=== PATIENT | female | born 1985 | race Caucasian/White ===

== ENCOUNTER 2017-07-17 14:50 | Emergency (ER) | payer BC ==
[~2017-07-17] VITALS: Ht 160 cm; Wt 117.3 kg
[~2017-07-17 14:50] MED LIST: AMIT50TA3 PO; LPR25 PO; MECL1TAB42 PO; TOPI50TA24 PO
[2017-07-17 14:55] VITALS: TEMP 37; Ht 160 cm; Wt 117.3 kg
[2017-07-17] MEDS ORDERED: DiphenhydrAMINE HCL 50 MG/ML VIAL IV STA (15:09)
[2017-07-17] MEDS ORDERED: MAGNESIUM SULFATE 1GM / D5W 1 GM BAG IV STA (15:09)
[2017-07-17] MEDS ORDERED: PROCHLORPERAZINE 5 MG/ML 2 ML VIAL IV STA (15:09)
[2017-07-17] MEDS ORDERED: SODIUM CHLORIDE 0.9% 1000ML 1,000 ML IV SCH (15:09)
[2017-07-17] MEDS ORDERED: ACETAMINOPHEN 500 MG TAB PO STA (15:09)
--- NOTE | 2017-07-17 15:16 | EMERGENCY ROOM VISIT NOTE ---
History Report prepared by Neela: Jean-Claude Fuentes Under the Supervision of: Dr. Robinson Lozano M.D. First contact with patient: 15:02 Chief Complaint: NEURO SYMPTOMS Stated Complaint: DIFFICULTY FORMING SENTENCES - VISUAL DISTURBANCES Nursing Triage Summary: Pt states, "I had some kind of visual disturbance in my right eye. It was like a squiggle. I can't find words sometimes. I can't remember how to spell sometimes. It's been going for about 45 mins at this point. I have a h/a behind my eyes, more so on the left." Hx of migraines. 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 She notes her vision in her right eye suddenly became "pixelated and squiggly" for ten minutes. She notes that she has never had blurry vision symptoms before today. She also notes a headache. She currently rates her pain a 2/10 in severity. She notes that she thought she needed to eat and relax, so she ate lunch. After lunch, she went to send a text message and noticed that she could not "read or comprehend anything," also noting that her speech was abnormal. She informed her PCP who advised her to come in to the ED. She has a history of neuro symptoms: slurred speech, inability to read or comprehend information (2013). She has a history of migraines and tachycardia. She takes Topamax, Flexeril, and control. 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 She notes speech issues. She notes comprehension issues, " could not "read or comprehend anything." Review of Systems See HPI for pertinent positives & negatives. A total of 10 systems reviewed and were otherwise negative. Past Medical & Surgical Medical Problems: (1) Cerebellar disease (2) Hx of migraines Family History Diabetes mellitus FHx: cancer FHx: heart disease Hypertension Kidney disease Kidney stones Social History Smoking Status: Never Smoker Alcohol Use: none Drug Use: none Marital Status: single Housing Status: lives with family Occupation Status: employed Current/Historical Medications Scheduled Control Pills ( Control Pills), 1 TAB PO DAILY Metoprolol Tartrate (Lopressor) (Lopressor), 50 MG PO QAM Metoprolol Tartrate (Lopressor) (Lopressor), 25 MG PO QPM Topiramate (Topamax), 50 MG PO BID Scheduled PRN Cyclobenzaprine Hcl (Flexeril), 10 MG PO TID PRN for Muscle Spasm Allergies Coded Allergies: Sumatriptan (Verified Allergy, Severe, SHORTNESS OF BREATH, 08/29/13) Amoxicillin (Verified Allergy, Intermediate, Hives, 08/29/13) Clavulanic Acid (Verified Allergy, Intermediate, Hives, 08/29/13) Ketorolac Tromethamine (Verified Allergy, Intermediate, Hives, 08/30/13) Tolerates ibuprofen Promethazine (Verified Allergy, Unknown, UNKNOWN, 08/29/13) Physical Exam Vital Signs Date Time Temp Pulse Resp B/P (MAP) Pulse Ox O2 Delivery O2 Flow Rate FiO2 07/17/17 16:22 87 18 99/70 98 Room Air 07/17/17 14:55 37.0 86 18 129/81 98 Room Air Physical Exam GENERAL: Patient is a healthy-appearing well-nourished middle-aged female. HEAD: Normocephalic atraumatic EYES: Ocular movements intact pupils equal and react to light OROPHARYNX mucous membranes are moist no exudates present no erythema or edema present NECK: Supple no nuchal rigidity CHEST: Good equal expansion LUNGS: Clear and equal to auscultation CARDIAC: Normal S1 and S2 ABDOMEN: Soft nontender no guarding BACK: No CVA tenderness EXTREMITIES: No pain upon palpation normal muscle strength in all groups no clubbing cyanosis or edema NEURO: Patient is following commands and answering questions appropriately. Alert and oriented x3 Cranial Nerves 2-12 grossly intact Medical Decision & Procedures ER Provider Diagnostic Interpretation: Radiology results as stated below per my review and radiologist interpretation: CHEST ONE VIEW PORTABLE CLINICAL HISTORY: Stroke mental status change COMPARISON STUDY: 08/29/2013 FINDINGS: The bones soft tissues and hemidiaphragms are normal. The cardiomediastinal silhouette is normal. The lungs are clear. The pulmonary vasculature is normal. IMPRESSION: Negative chest. The above report was generated using voice recognition software. It may contain grammatical, syntax or spelling errors. Electronically signed by: Armin Fletcher M.D. 07/17/2017 3:39 PM Dictated Date/Time: 07/17/2017 3:[address] OF THE HEAD WITHOUT CONTRAST CLINICAL HISTORY: Possible stroke. Visual disturbance. Difficulty forming sentences. COMPARISON STUDY: MRI of the brain March 30, 2013. CT DOSE: 1400.70 mGycm TECHNIQUE: Helical axial images of the head were obtained without IV contrast. Automated exposure control was utilized for the study. A dose lowering technique was utilized adhering to the principles of ALARA. FINDINGS: No acute intracranial hemorrhage, midline shift or mass effect is present. Ventricular system is normal. Basilar cisterns are patent. There are no extra-axial collections. Gamble-white differentiation is maintained. There are no findings to suggest acute dural sinus thrombosis or acute territorial infarct. There are no significant calvarial abnormalities. Visualized portions of the sinuses and mastoid air cells are clear. IMPRESSION: No acute intracranial findings. Electronically signed by: Seth Bourne M.D. 07/17/2017 4:26 PM Dictated Date/Time: 07/17/2017 4:23 PM Laboratory Results 07/17/17 15:25 Red Blood Count 4.74, Mean Corpuscular Volume 86.7, Mean Corpuscular Hemoglobin 29.7, Mean Corpuscular Hemoglobin Concent 34.3, Mean Platelet Volume 9.9, Neutrophils (%) (Auto) 63.0, Lymphocytes (%) (Auto) 26.8, Monocytes (%) (Auto) 6.3, Eosinophils (%) (Auto) 3.5, Basophils (%) (Auto) 0.2, Neutrophils # (Auto) 5.94, Lymphocytes # (Auto) 2.52, Monocytes # (Auto) 0.59, Eosinophils # (Auto) 0.33, Basophils # (Auto) 0.02 07/17/17 15:25 Test 07/17/17 15:19 07/17/17 15:25 07/17/17 15:45 Bedside Prothrombin Time INR 0.9 (0.9-1.1) White Blood Count 9.42 K/uL (4.8-10.8) Red Blood Count 4.74 M/uL (4.2-5.4) Hemoglobin 14.1 g/dL (12.0-16.0) Hematocrit 41.1 % (37-47) Mean Corpuscular Volume 86.7 fL (80-100) Mean Corpuscular Hemoglobin 29.7 pg (25-34) Mean Corpuscular Hemoglobin Concent 34.3 g/dl (32-36) Platelet Count 259 K/uL (130-400) Mean Platelet Volume 9.9 fL (7.4-10.4) Neutrophils (%) (Auto) 63.0 % Lymphocytes (%) (Auto) 26.8 % Monocytes (%) (Auto) 6.3 % Eosinophils (%) (Auto) 3.5 % Basophils (%) (Auto) 0.2 % Neutrophils # (Auto) 5.94 K/uL (1.4-6.5) Lymphocytes # (Auto) 2.52 K/uL (1.2-3.4) Monocytes # (Auto) 0.59 K/uL (0.11-0.59) Eosinophils # (Auto) 0.33 K/uL (0-0.5) Basophils # (Auto) 0.02 K/uL (0-0.2) RDW Standard Deviation 44.6 fL (36.4-46.3) RDW Coefficient of Variation 14.1 % (11.5-14.5) Immature Granulocyte % (Auto) 0.2 % Immature Granulocyte # (Auto) 0.02 K/uL (0.00-0.02) Prothrombin Time 9.5 SECONDS (9.0-12.0) Prothromb Time International Ratio 0.9 (0.9-1.1) Activated Partial Thromboplast Time 25.3 SECONDS (21.0-31.0) Partial Thromboplastin Ratio 1.0 Anion Gap 3.0 mmol/L (3-11) Est Creatinine Clear Calc Drug Dose 107.7 ml/min Estimated GFR () 95.4 Estimated GFR (Non- 82.3 BUN/Creatinine Ratio 15.4 (10-20) Calcium Level 8.2 mg/dl (8.5-10.1) Magnesium Level 2.0 mg/dl (1.8-2.4) Total Creatine Kinase 63 U/L (26-192) Creatine Kinase MB < 0.5 ng/ml (0.5-3.6) Creatine Kinase MB Ratio (0-3.0) Troponin I < 0.015 ng/ml (0-0.045) Urine Test NEG (NEG) Labs reviewed by ED physician. Medications Administered Medications (Trade) Dose Ordered Sig/Shanon Route Start Time Stop Time Status Last Admin Dose Admin Sodium Chloride 1,000 ml @ 50 mls/hr Q20H IV 07/17/17 15:09 07/17/17 16:55 DC 07/17/17 15:43 50 MLS/HR Prochlorperazine Edisylate (Compazine Inj) 10 mg NOW STAT IV 07/17/17 15:09 07/17/17 15:12 DC 07/17/17 15:44 10 MG Diphenhydramine HCl (Benadryl Inj) 50 mg NOW STAT IV 07/17/17 15:09 07/17/17 15:12 DC 07/17/17 15:44 50 MG Magnesium Sulfate (Magnesium Sulfate) 1 gm NOW STAT IV 07/17/17 15:09 07/17/17 15:12 DC 07/17/17 15:44 1 GM Acetaminophen (Tylenol Tab) 1,000 mg NOW STAT PO 07/17/17 15:09 07/17/17 15:12 DC 07/17/17 15:44 1,000 MG ED Course 1502: Past medical records reviewed. The patient was evaluated in room B12B. A complete history and physical examination was performed. 1509: Ordered Acetaminophen 1,000 mg PO, Magnesium Sulfate 1 gm IV, Benadryl 50 mg IV, Compazine 10 mg, NSS 1,000 ml @ 50mls/hr 1634: I reassessed the patient at this time. She is feeling better and resting comfortably. I discussed the results and treatment plan with the patient. I answered all pertaining questions that she had. She expressed understanding and verbalized agreement. The patient will be discharged home. Medical Decision Prior records/ancillary studies reviewed and summarized above. Nursing notes reviewed. The patient's history was concerning for Differential diagnosis: Etiologies such as metabolic, infection, hypo/hyperglycemia, electrolyte abnormalities, cardiac sources, intracerebral event, toxicologic, neurologic, as well as others were entertained. This is a 32-year-old female who presents emergency department complaining of what sounds like a visual migraine. The majority of the patient's symptoms have resolved at this point. I will also note that the patient had similar episode back in 2013 which she followed up with Dr. Wilson for. An IV was established, patient given normal saline bolus, Compazine, Benadryl, magnesium. Repeat examination revealed much improvement patient's symptoms. I do feel that the patient is well enough to be discharged home for follow-up with her primary care physician. The patient was also referred to neurology. Patient was in agreement with the treatment plan. Medication Reconcilliation Current Medication List: was personally reviewed by me Blood Pressure Screening Patient's blood pressure: Normal blood pressure Impression Primary Impression: Headache Scribe Attestation The scribe's documentation has been prepared under my direction and personally reviewed by me in its entirety. I confirm that the note above accurately reflects all work, treatment, procedures, and medical decision making performed by me. Departure Information Dispostion Home / Self-Care Referrals Chela Molina M.D. (PCP) Forms HOME CARE DOCUMENTATION FORM, IMPORTANT VISIT INFORMATION, WORK / SCHOOL INSTRUCTIONS Patient Instructions ED Headache Migraine, Headache Migraine Triggers Prevent, Migraine Stages Tx, My [facility] Additional Instructions Follow up with DR Pang's office You have been examined and treated today on an emergency basis only. This is not a substitute for, or an effort to provide, complete comprehensive medical care. It is impossible to recognize and treat all injuries or illnesses in a single emergency department visit. It is therefore important that you follow up closely with Dr Molina. Call as soon as possible for an appointment. Thank you for your time and consideration. I look forward to speaking with you again soon. Please don't hesitate to call us if you have any questions. Problem Qualifiers Primary Impression: Headache Headache type: unspecified Headache chronicity pattern: acute headache Intractability: not intractable Qualified Codes: R51 - Headache
[2017-07-17 15:39] LABS: BASO % 0.2 %; BASO ABS # 0.02 K/uL (0-0.2); COMPLETE YES; EOS % 3.5 %; HEMATOCRIT 41.1 % (37-47); IG% 0.2 %; LYMPH % 26.8 %; LYMPH ABS # 2.52 K/uL (1.2-3.4); MEAN CELL VOLUME 86.7 fL (80-100); MEAN CORPUSCULAR HEMOGLOBIN 29.7 pg (25-34); MEAN CORPUSCULAR HGB CONC 34.3 g/dl (32-36); MEAN PLATELET VOLUME 9.9 fL (7.4-10.4); MONO % 6.3 %; PLATELET COUNT 259 K/uL (130-400); RED BLOOD COUNT 4.74 M/uL (4.2-5.4); WHITE BLOOD COUNT 9.42 K/uL (4.8-10.8)
--- NOTE | 2017-07-17 15:40 | DIAGNOSTIC IMAGING REPORT ---
CHEST ONE VIEW PORTABLE CLINICAL HISTORY: Stroke mental status change COMPARISON STUDY: 08/29/2013 FINDINGS: The bones soft tissues and hemidiaphragms are normal. The cardiomediastinal silhouette is normal. The lungs are clear. The pulmonary vasculature is normal. IMPRESSION: Negative chest. The above report was generated using voice recognition software. It may contain grammatical, syntax or spelling errors. Electronically signed by: Armin Fletcher M.D. 07/17/2017 3:39 PM Dictated Date/Time: 07/17/2017 3:38 PM
[2017-07-17 15:47] LABS: INR 0.9 (0.9-1.1); PROTHROMBIN TIME (PATIENT) 9.5 SECONDS (9.0-12.0)
[2017-07-17] MEDS ORDERED: BCPILLS PO (15:47)
[2017-07-17] MEDS ORDERED: METO25TA56 PO ×2 (15:47)
[2017-07-17] MEDS ORDERED: CYCL10TA6 PO (15:47)
[2017-07-17 15:56] LABS: BLOOD UREA NITROGEN 14 mg/dl (7-18); BUN/CREATININE RATIO 15.4 (10-20); CALCIUM 8.2 mg/dl (8.5-10.1); CARBON DIOXIDE 26 mmol/L (21-32); CHLORIDE 106 mmol/L (98-107); CREATININE 0.91 mg/dl (0.60-1.20); GLUCOSE 110 mg/dl (70-99); POTASSIUM 3.7 mmol/L (3.5-5.1); SODIUM 135 mmol/L (136-145)
[2017-07-17 16:01] LABS: PREG INTERNAL NEGATIVE QC NEG CLEAR BACKGROUND; PREG INTERNAL POSITIVE QC POS CONTROL LINE
[2017-07-17 16:22] VITALS: BP 99/70; PULSE 87; O2SAT 98
--- NOTE | 2017-07-17 16:27 | DIAGNOSTIC IMAGING REPORT ---
CT OF THE HEAD WITHOUT CONTRAST CLINICAL HISTORY: Possible stroke. Visual disturbance. Difficulty forming sentences. COMPARISON STUDY: MRI of the brain March 30, 2013. CT DOSE: 1400.70 mGycm TECHNIQUE: Helical axial images of the head were obtained without IV contrast. Automated exposure control was utilized for the study. A dose lowering technique was utilized adhering to the principles of ALARA. FINDINGS: No acute intracranial hemorrhage, midline shift or mass effect is present. Ventricular system is normal. Basilar cisterns are patent. There are no extra-axial collections. Gamble-white differentiation is maintained. There are no findings to suggest acute dural sinus thrombosis or acute territorial infarct. There are no significant calvarial abnormalities. Visualized portions of the sinuses and mastoid air cells are clear. IMPRESSION: No acute intracranial findings. Electronically signed by: Seth Bourne M.D. 07/17/2017 4:26 PM Dictated Date/Time: 07/17/2017 4:23 PM
== END 2017-07-17 16:44 | disposition home or self-care (01) ==
LOC: C.EDB 14:51
DX: R51 Headache (principal); G93.9 Disorder of brain, unspecified; Z83.3 Family history of diabetes mellitus; Z82.49 Family history of ischemic heart disease and other diseases of the circulatory system

== ENCOUNTER 2023-04-05 01:56 | Observation (INO) ==
[2023-04-05] MEDS ORDERED: MoRPHine SULFATE 4 MG/ML 1 ML CARP\\VIAL IV STA ×2 (02:14→05:05)
[2023-04-05] MEDS ORDERED: ONDANSETRON INJ 2 MG/ML 2 ML VIAL IV STA ×2 (02:14→05:05)
[2023-04-05] MEDS ORDERED: SODIUM CHLORIDE 0.9% 1000ML 1,000 ML IV STA (02:14)
[2023-04-05 02:47] LABS: Appearance Urine Clear (Clear); Bilirubin Urine Negative (Negative); Blood Urine Negative (Negative); Color Urine Yellow; Glucose Urine UA Negative (Negative); Ketones Urine Negative (Negative); Leukocyte Esterase Urine Negative (Negative); Nitrite Urine Negative (Negative); Protein Urine Negative (Negative); Specific Gravity Urine 1.028 (1.000-1.030); Urobilinogen Urine Negative (Negative)
[2023-04-05 02:50] LABS: Basophils # (auto) 0.03 K/uL (0.00-0.20); Basophils % (auto) 0.2 %; Eosinophils # (auto) 0.19 K/uL (0.00-0.50); Eosinophils % (auto) 1.5 %; Hematocrit (blood only) 41.1 % (37.0-47.0); Hemoglobin 13.8 g/dl (12.0-16.0); Immature Granulocytes # (auto) 0.05 K/uL (0.01-0.20); Immature Granulocytes % (auto) 0.4 %; Lymphocytes # (auto) 1.49 K/uL (1.20-3.40); Lymphocytes % (auto) 11.6 %; Mean Corpuscular Hemoglobin 29.4 pg (25.0-34.0); Mean Corpuscular Hgb Conc 33.6 g/dL (32.0-36.0); Mean Corpuscular Volume 87.4 fL (80.0-100.0); Mean Platelet Volume 10.1 fL (9.4-12.4); Monocytes # (auto) 0.76 K/uL (0.11-0.59); Monocytes % (auto) 5.9 %; Neutrophils # (auto) 10.32 K/uL (1.40-6.50); Neutrophils % (auto) 80.4 %; Platelet Count 279 K/uL (130-400); RDW Coefficient of Variation 13.3 % (11.5-14.5); RDW Standard Deviation 43.3 fL (36.4-46.3); White Blood Count 12.84 K/ul (4.8-10.8)
[2023-04-05 03:08] LABS: Pregnancy Test, Serum Negative (Negative)
[2023-04-05 03:15] LABS: Albumin Globulin Ratio 1.5 (0.9-2); Albumin Level 4.1 gm/dl (3.4-5.0); BUN Creatinine Ratio 22.5 (10-20); Bilirubin,Total 0.5 mg/dl (0.2-1.0); Calcium 8.6 mg/dl (8.6-10.3); Creatinine Clr Calc Pharmacy 142.4 ml/min; Est GFR (African American) 123.5 ml/min; Est GFR (Non-African American) 106.5 ml/min; Globulin 2.8 gm/dl (2.5-4.0); Potassium 3.6 mmol/L (3.5-5.1); Total Protein 6.9 gm/dl (6.0-8.3)
[2023-04-05] MEDS ORDERED: CEFEPIME 2,000 MG/20 ML VIAL IV STA (04:12)
--- NOTE | 2023-04-05 06:21 | Ultrasound Report ---
Exam(s): US GALLBLADDER EXAM: US Abdomen Limited, Gallbladder CLINICAL HISTORY: Reason for exam: epigastric pain. TECHNIQUE: Real-time ultrasound of the right upper quadrant with image documentation. COMPARISON: No relevant prior studies available. FINDINGS: Liver: Echogenic, enlarged liver. 20.7 cm. Gallbladder: Multiple gallbladder stones. No wall thickening. Query mild pericholecystic fluid. Common bile duct: Dilated common bile duct 1.3 cm. No stones. Pancreas: Unremarkable as visualized. IMPRESSION: 1. Multiple gallbladder stones. Query mild pericholecystic fluid. Findings are equivocal for acute cholecystitis. 2. Dilated common bile duct 1.3 cm. Could consider MRCP to assess for common duct obstruction. 3. Echogenic, enlarged liver. 20.7 cm. May represent hepatic steatosis or other hepatic infiltrative process. Electronically signed by: Fernandez Lindsey M.D. 04/05/23 06:20 AM
[2023-04-05] MEDS ORDERED: SODIUM CHLORIDE 0.9% 1000ML 1,000 ML IV SCH (07:15)
--- NOTE | 2023-04-05 07:40 | XRay Report ---
XR chest 1V portable HISTORY: epigastric abd pain COMPARISON: Chest 07/17/2017. FINDINGS: No pneumothorax. No pleural effusions. The cardiac silhouette is mildly enlarged. There is mild central pulmonary vascular congestion without overt edema. This could be technical from the AP p ortable technique. No focal lung consolidations to suggest a pneumonia. No acute fractures identified . IMPRESSION: Cardiomegaly and mild central pulmonary vascular congestion without overt edema. ACT 112: Negative or not required by law. Electronically signed by: Cabrera Rush M.D. 04/05/2023 7:39 AM
--- NOTE | 2023-04-05 09:50 | Magnetic Resonance Report ---
MR MRCP HISTORY: Abnormal ultrasound. dilated CBD TECHNIQUE: MRCP of the abdomen was performed without contrast according to standard departmental prot ocol. COMPARISON STUDY: Abdominal ultrasound 04/05/2023. FINDINGS: Mild motion artifact results in suboptimal evaluation. The lung bases are clear. No hepatic or splenic masses. A few subcentimeter T2 hyperintense lesions within the left kidney favor cysts. N ormal right kidney. No hydronephrosis. Normal pancreas. No retroperitoneal lymphadenopathy. Normal ca liber abdominal aorta. The gallbladder is mildly distended. There are few gallstones at the neck of t he gallbladder with the largest measuring 14 mm. There is trace pericholecystic fluid. Motion artifac t results in suboptimal evaluation of the common bile duct and main pancreatic duct. However, the com mon bile duct appears to be normal and course and caliber measuring up to 4 mm. No definite filling d efects within the common bile duct. The main pancreatic duct is likely normal in caliber. IMPRESSION: 1. Suboptimal evaluation of the common bile duct due to the motion artifact. However, the common bile duct appears to be normal in caliber. No definite filling defects within the common bile duct. 2. The gallbladder is mildly distended and contains a few gallstones. There is trace pericholecystic fluid. This could represent an acute cholecystitis. Clinical correlation recommended. 3. The main pancreatic duct is not well visualized due to the motion artifact but likely normal in ca liber. ACT 112: Negative or not required by law. Electronically signed by: Cabrera Rush M.D. 04/05/2023 9:48 AM
--- NOTE | 2023-04-05 10:35 | History & Physical Report ---
Date of Service April 05, 2023 Assessment & Plan (1) Acute cholecystitis due to biliary calculus: Plan: Clinical exam suggestive of acute cholecystitis. MRCP shows normal caliber common bile duct, liver function tests are normal. We discussed laparoscopic cholecystectomy with risks of bleeding, infection, injury to the common bile duct, bile leak, retained common bile duct stone, postoperative diarrhea requiring medications, and intolerance to foods. She understands the possible need for an extra trocar due to her body mass index. We discussed the potential of an open procedure with extended recovery and extended hospital stay. Consent was signed. Plan for the operating room today. (2) SVT (supraventricular tachycardia): Plan: well managed on metoprolol (3) Obstructive sleep apnea: Plan: unable to use cpap due to deviated septum History of Present Illness Chief Complaint: epigastric pain Primary Care Provider: Chela Molina MD 38-year-old woman who presents to the emergency room complaining of epigastric pain that has been going on for the past few weeks. This has been occurring intermittently until when it became more constant. Since it has been progressively worsening. The pain is located directly in the epigastrium. There is no radiation to the back or shoulder. It is constant, sharp stabbing, throbbing and burning at times. She began to develop nausea and vomiting last night. She also noted chills and sweats and has been taking Tylenol over the course of the past few days for this. The pain is a 10 out of 10 in intensity. She has not noted any diarrhea. She denies any jaundice. She has been taking some stool softeners and laxatives over the course of the past few weeks intermittently for constipation. She has no family history of gallbladder disease. She does take weight loss medication but her last dose of this was over 10 days ago. PMHx is notable for intermittent sinus tachycardia for which she takes metoprolol. Believes it is anxiety related. Also has "bad sleep apnea" but has been unable to use her cpap due to a deviated septum. Was scheduled for surgery for the deviated septum in the next few weeks. Allergies Allergy/AdvReac Type Severity Reaction Status Date / Time amoxicillin Allergy Unknown Hives Verified 04/05/23 08:03 bee venom protein (honey bee) Allergy Unknown bee stings Verified 04/05/23 08:03 - localized swelling, trouble breathing with cat dander Allergy Unknown sneezing, Verified 04/05/23 08:03 itchy eyes clavulanic acid Allergy Unknown Hives Verified 04/05/23 08:03 ketorolac Allergy Unknown Hives Verified 04/05/23 08:03 promethazine Allergy Unknown UNKNOWN Verified 04/05/23 08:03 sumatriptan Allergy Unknown SHORTNESS Verified 04/05/23 08:03 OF BREATH tramadol Allergy Unknown Hives Verified 04/05/23 08:03 Home Medications Medication Instructions Recorded Confirmed Type epinephrine 0.3 mg/0.3 mL 0.3 mg IM Q10M PRN allergies 06/27/19 04/05/23 History injection, auto-injector cyclobenzaprine 10 mg tablet 10 mg PO TID 05/05/22 04/05/23 History metoprolol tartrate 50 mg tablet 50 mg PO BID 05/05/22 04/05/23 History dklujhv-mtzqbrflrobil-jgxalarl 250 1 tab PO UD PRN migraines 05/16/22 04/05/23 History mg-250 mg-65 mg tablet (Excedrin Migraine) acetazolamide 250 mg tablet 250 mg PO TID #90 tabs 10/08/22 04/05/23 Rx rimegepant 75 mg disintegrating 75 mg PO DAILY PRN migraine 10/08/22 04/05/23 Rx tablet (Nurtec ODT) headache #8 tabs metformin 500 mg tablet 500 mg PO BID 04/05/23 04/05/23 History semaglutide (weight loss) 2.4 2.7 mg subcut WK 04/05/23 04/05/23 History mg/0.75 mL subcutaneous pen injector (Wegovy) semaglutide 1 mg/dose (4 mg/3 mL) 1 mg subcut UD 04/05/23 04/05/23 History subcutaneous pen injector (Ozempic) Past Med/Surg History Medical History Cerebellar disease Chiari malformation pt denies correction, last saw [place] [facility] 2015 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 History of anesthesia reaction AT THE DENTIST, LIDOCAINE DOESN'T WORK FOR ME Migraines neurologic symptoms with per pt: difficulty speaking at times and left arm/left side goes numb; menstrual cycle, average of once/month; denies change or worsening in nature or severity Pre-diabetes on metformin Sinus tachycardia on beta-cathy Sleep apnea severe per PCP note 03/2022-intermittent use Surgical History History of delivery 2004 (DURING C/S UTERINE FIBROID REMOVED) History of tooth extraction several Family History Father Hypertension Stroke Mother Environmental allergies Hypertension Aunt Breast cancer maternal Grandfather (Maternal) Stomach cancer Heart disease Grandfather (Paternal) Family history of colon cancer Stomach cancer Heart disease Grandmother (Maternal) Stomach cancer Family history of diabetes mellitus Heart disease Asthma Grandmother (Paternal) Stomach cancer Heart disease Uncle No problems noted. Aunt No problems noted. Aunt Asthma Uncle Asthma Other No family history of adverse response to anesthesia No family history of bleeding disorder Social History Smoking Status: Never smoker Do You Dip or Chew Tobacco: No; Hx Alcohol Use: Yes Alcohol Intake Frequency: Monthly or Less Hx Substance Use: No Preferred Language: Pry[place]in[place] Communication Ability: Effective Past Due Accounts Clerk Required: No Beliefs That Will Affect Care: None marital status: Single Current Living Situation: Family Current Living Situation Comment: SON current occupational status: employed current occupation: Healthcare-Clerical Feels Safe at Home: Yes Assistive Devices: Contacts, CPAP and Glasses Review of Systems Review of Systems: All systems reviewed & are unremarkable except as noted in HPI & below Respiratory: + snoring (bad sleep apnea) Cardiovascular: + palpitations (intermittently with the tachycardia - well managed on metoprolol) Physical Exam Constitutional: + morbidly obese; no acute distress Eyes: PERRL, conjunctivae normal, anicteric sclerae Neck: normal visual inspection and trachea midline Respiratory: normal respiratory effort, lungs clear to auscultation Cardiovascular: RRR, no murmur, no edema Gastrointestinal (Abdomen): Inspection/Auscultation: abdomen normal to inspection and normal bowel sounds; abdomen not distended Percussion/Palpation: + abdomen tender (in epigastrium) and abdomen soft Musculoskeletal: no cyanosis or clubbing, extremities motor strength 5/5 Neurologic: awake; no focal motor deficits Psychiatric: A+Ox3, euthymic affect Results & Data Results & Data Vital Signs (Past 12 Hours) Vital Signs Temp Pulse Pulse Resp BP BP Pulse Ox 04/05/23 07:07 135/105 H 04/05/23 07:07 90 18 97 04/05/23 06:30 80 26 H 146/92 H 93 04/05/23 06:00 81 24 127/81 93 04/05/23 06:18 84 04/05/23 05:30 83 23 145/96 H 94 04/05/23 05:00 86 26 H 153/99 H 94 04/05/23 04:30 87 17 149/91 H 96 04/05/23 04:00 83 21 164/81 H 96 04/05/23 03:30 87 17 144/90 H 92 04/05/23 02:30 93 H 21 139/107 H 97 04/05/23 02:18 96 H 04/05/23 02:18 97 H 24 154/99 H 96 04/05/23 01:59 36.6 C 95 H 18 162/101 H 96 O2 Del Method 04/05/23 07:07 04/05/23 07:07 Room Air 04/05/23 06:30 04/05/23 06:00 04/05/23 06:18 04/05/23 05:30 04/05/23 05:00 04/05/23 04:30 04/05/23 04:00 04/05/23 03:30 04/05/23 02:30 04/05/23 02:18 04/05/23 02:18 Room Air 04/05/23 01:59 Room Air Laboratory Results 04/05/23 04/05/23 04/05/23 Range/Units 02:25 02:25 02:25 WBC 12.84 H (4.8-10.8) K/ul RBC 4.70 (4.20-5.40) M/uL Hgb 13.8 (12.0-16.0) g/dl Hct 41.1 (37.0-47.0) % MCV 87.4 (80.0-100.0) fL MCH 29.4 (25.0-34.0) pg MCHC 33.6 (32.0-36.0) g/dL RDW Std Deviation 43.3 (36.4-46.3) fL RDW Coeff of Dayana 13.3 (11.5-14.5) % Plt Count 279 (130-400) K/uL MPV 10.1 (9.4-12.4) fL Immature Gran % (Auto) 0.4 % Neut % (Auto) 80.4 % Lymph % (Auto) 11.6 % Richardson % (Auto) 5.9 % Eos % (Auto) 1.5 % Baso % (Auto) 0.2 % Neut # (Auto) 10.32 H (1.40-6.50) K/uL Lymph # (Auto) 1.49 (1.20-3.40) K/uL Richardson # (Auto) 0.76 H (0.11-0.59) K/uL Eos # (Auto) 0.19 (0.00-0.50) K/uL Baso # (Auto) 0.03 (0.00-0.20) K/uL Immature Gran # (Auto) 0.05 (0.01-0.20) K/uL Sodium 135 L (136-145) mmol/L Potassium 3.6 (3.5-5.1) mmol/L Chloride 100 (98-107) mmol/L Carbon Dioxide 29 (21-32) mmol/L Anion Gap 6 (3-11) BUN 16 (6-23) mg/dl Creatinine 0.71 (0.6-1.2) mg/dl Est Cr Clr Drug Dosing 142.4 ml/min Est GFR ( Amer) 123.5 ml/min Est GFR (Non-Af Amer) 106.5 ml/min BUN/Creatinine Ratio 22.5 H (10-20) Glucose 133 H (70-99(Fasting)) mg/dl Calcium 8.6 (8.6-10.3) mg/dl Total Bilirubin 0.5 (0.2-1.0) mg/dl AST 13 (13-39) U/L ALT 22 (7-52) U/L Alkaline Phosphatase 56 (34-104) U/L Total Protein 6.9 (6.0-8.3) gm/dl Albumin 4.1 (3.4-5.0) gm/dl Globulin 2.8 (2.5-4.0) gm/dl Albumin/Globulin Ratio 1.5 (0.9-2) Lipase 32 (11-82) U/L HCG, Qual Negative (Negative) Urine Color Urine Appearance (Clear) Urine pH (4.5-7.5) Ur Specific [place] (1.000-1.030) Urine Protein (Negative) Urine Glucose (UA) (Negative) Urine Ketones (Negative) Urine Blood (Negative) Urine Nitrite (Negative) Urine Bilirubin (Negative) Urine Urobilinogen (Negative) Ur Leukocyte Esterase (Negative) 04/05/23 Range/Units 02:23 WBC (4.8-10.8) K/ul RBC (4.20-5.40) M/uL Hgb (12.0-16.0) g/dl Hct (37.0-47.0) % MCV (80.0-100.0) fL MCH (25.0-34.0) pg MCHC (32.0-36.0) g/dL RDW Std Deviation (36.4-46.3) fL RDW Coeff of Dayana (11.5-14.5) % Plt Count (130-400) K/uL MPV (9.4-12.4) fL Immature Gran % (Auto) % Neut % (Auto) % Lymph % (Auto) % Richardson % (Auto) % Eos % (Auto) % Baso % (Auto) % Neut # (Auto) (1.40-6.50) K/uL Lymph # (Auto) (1.20-3.40) K/uL Richardson # (Auto) (0.11-0.59) K/uL Eos # (Auto) (0.00-0.50) K/uL Baso # (Auto) (0.00-0.20) K/uL Immature Gran # (Auto) (0.01-0.20) K/uL Sodium (136-145) mmol/L Potassium (3.5-5.1) mmol/L Chloride (98-107) mmol/L Carbon Dioxide (21-32) mmol/L Anion Gap (3-11) BUN (6-23) mg/dl Creatinine (0.6-1.2) mg/dl Est Cr Clr Drug Dosing ml/min Est GFR ( Amer) ml/min Est GFR (Non-Af Amer) ml/min BUN/Creatinine Ratio (10-20) Glucose (70-99(Fasting)) mg/dl Calcium (8.6-10.3) mg/dl Total Bilirubin (0.2-1.0) mg/dl AST (13-39) U/L ALT (7-52) U/L Alkaline Phosphatase (34-104) U/L Total Protein (6.0-8.3) gm/dl Albumin (3.4-5.0) gm/dl Globulin (2.5-4.0) gm/dl Albumin/Globulin Ratio (0.9-2) Lipase (11-82) U/L HCG, Qual (Negative) Urine Color Yellow Urine Appearance Clear (Clear) Urine pH 6.0 (4.5-7.5) Ur Specific [place] 1.028 (1.000-1.030) Urine Protein Negative (Negative) Urine Glucose (UA) Negative (Negative) Urine Ketones Negative (Negative) Urine Blood Negative (Negative) Urine Nitrite Negative (Negative) Urine Bilirubin Negative (Negative) Urine Urobilinogen Negative (Negative) Ur Leukocyte Esterase Negative (Negative) Diagnostic Findings Exam(s): US GALLBLADDER EXAM: US Abdomen Limited, Gallbladder CLINICAL HISTORY: Reason for exam: epigastric pain. TECHNIQUE: Real-time ultrasound of the right upper quadrant with image documentation. COMPARISON: No relevant prior studies available. FINDINGS: Liver: Echogenic, enlarged liver. 20.7 cm. Gallbladder: Multiple gallbladder stones. No wall thickening. Query mild pericholecystic fluid. Common bile duct: Dilated common bile duct 1.3 cm. No stones. Pancreas: Unremarkable as visualized. IMPRESSION: 1. Multiple gallbladder stones. Query mild pericholecystic fluid. Findings are equivocal for acute cholecystitis. 2. Dilated common bile duct 1.3 cm. Could consider MRCP to assess for common duct obstruction. 3. Echogenic, enlarged liver. 20.7 cm. May represent hepatic steatosis or other hepatic infiltrative process. Electronically signed by: Fernandez Lindsey M.D. 04/05/23 06:20 AM MR MRCP HISTORY: Abnormal ultrasound. dilated CBD TECHNIQUE: MRCP of the abdomen was performed without contrast according to standard departmental protocol. COMPARISON STUDY: Abdominal ultrasound 04/05/2023. FINDINGS: Mild motion artifact results in suboptimal evaluation. The lung bases are clear. No hepatic or splenic masses. A few subcentimeter T2 hyperintense lesions within the left kidney favor cysts. Normal right kidney. No hydronephrosis. Normal pancreas. No retroperitoneal lymphadenopathy. Normal caliber abdominal aorta. The gallbladder is mildly distended. There are few gallstones at the neck of the gallbladder with the largest measuring 14 mm. There is trace pericholecystic fluid. Motion artifact results in suboptimal evaluation of the common bile duct and main pancreatic duct. However, the common bile duct appears to be normal and course and caliber measuring up to 4 mm. No definite filling defects within the common bile duct. The main pancreatic duct is likely normal in caliber. IMPRESSION: 1. Suboptimal evaluation of the common bile duct due to the motion artifact. However, the common bile duct appears to be normal in caliber. No definite filling defects within the common bile duct. 2. The gallbladder is mildly distended and contains a few gallstones. There is trace pericholecystic fluid. This could represent an acute cholecystitis. Clinical correlation recommended. 3. The main pancreatic duct is not well visualized due to the motion artifact but likely normal in caliber. Code Status & VTE Plan VTE Prophylaxis Plan VTE Prophylaxis will be ordered: Yes
[2023-04-05] MEDS ORDERED: MoRPHine SULFATE 4 MG/ML 1 ML CARP\\VIAL IV PRN (11:27)
[2023-04-05] MEDS ORDERED: oxyCODONE/ACETAMINOPHEN 5mg/325mg TAB PO PRN ×2 (11:27)
[2023-04-05] MEDS ORDERED: MoRPHine SULFATE 2 MG/ML CARP IV PRN (11:27)
[2023-04-05] MEDS ORDERED: ONDANSETRON INJ 2 MG/ML 2 ML VIAL IV PRN (11:27)
[2023-04-05] MEDS ORDERED: PROMETHAZINE HCL 12.5 MG in SODIUM CHLORIDE 0.9% 50 ML IV PRN (11:27)
[2023-04-05] MEDS: METOPROLOL TARTRATE 50 MG TAB PO SCH ×2 (12:33→20:12)
--- NOTE | 2023-04-05 12:36 | Anesthesiology Consultation ---
Date of Service April 05, 2023 Assessment & Plan Chart Review Chart Review: Acceptable Risk for Surgery and Patient NOT seen in Pre Admission Testing Consults Requested none History Surgery Operation Date: 04/05/23 14:00 Proposed Procedures p Laparoscopic Cholecystectomy - Priyanka Sood MD Height/Weight Height: 5 ft 3 in Weight: 135.5 kg Allergies Allergy/AdvReac Type Severity Reaction Status Date / Time amoxicillin Allergy Unknown Hives Verified 04/05/23 08:03 bee venom protein (honey bee) Allergy Unknown bee stings Verified 04/05/23 08:03 - localized swelling, trouble breathing with cat dander Allergy Unknown sneezing, Verified 04/05/23 08:03 itchy eyes clavulanic acid Allergy Unknown Hives Verified 04/05/23 08:03 ketorolac Allergy Unknown Hives Verified 04/05/23 08:03 promethazine Allergy Unknown UNKNOWN Verified 04/05/23 08:03 sumatriptan Allergy Unknown SHORTNESS Verified 04/05/23 08:03 OF BREATH tramadol Allergy Unknown Hives Verified 04/05/23 08:03 Medications Home Medications Medication Instructions Recorded Confirmed Last Taken epinephrine 0.3 mg/0.3 mL 0.3 mg IM Q10M PRN allergies 06/27/19 04/05/23 Unknown injection, auto-injector cyclobenzaprine 10 mg tablet 10 mg PO TID 05/05/22 04/05/23 Unknown metoprolol tartrate 50 mg tablet 50 mg PO BID 05/05/22 04/05/23 Unknown arttflw-ocmjpfbrbezyo-jbovclng 250 1 tab PO UD PRN migraines 05/16/22 04/05/23 Unknown mg-250 mg-65 mg tablet (Excedrin Migraine) acetazolamide 250 mg tablet 250 mg PO TID #90 tabs 10/08/22 04/05/23 Unknown rimegepant 75 mg disintegrating 75 mg PO DAILY PRN migraine 10/08/22 04/05/23 Unknown tablet (Nurtec ODT) headache #8 tabs metformin 500 mg tablet 500 mg PO BID 04/05/23 04/05/23 Unknown semaglutide (weight loss) 2.4 2.7 mg subcut WK 04/05/23 04/05/23 Unknown mg/0.75 mL subcutaneous pen injector (Ninovveronica) semaglutide 1 mg/dose (4 mg/3 mL) 1 mg subcut UD 04/05/23 04/05/23 Unknown subcutaneous pen injector (Ozempic) Active Medications Generic Name Dose Route Start Last Admin Trade Name Ania PRN Reason Stop Dose Admin Lactated Ringer's 1,000 mls @ 100 mls/hr 04/05/23 11:27 04/05/23 11:46 Lr IV 05/05/23 11:26 100 mls/hr .Q10H MARCELLO Administration Metoprolol Tartrate 50 mg 04/05/23 11:27 04/05/23 12:33 Metoprolol Tartrate 50 Mg Tab PO 05/05/23 11:26 Not Given BID MARCELLO Past Medical History Medical History Cerebellar disease Chiari malformation pt denies correction, last saw [place] [facility] 2015 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 History of anesthesia reaction AT THE DENTIST, LIDOCAINE DOESN'T WORK FOR ME Migraines neurologic symptoms with per pt: difficulty speaking at times and left arm/left side goes numb; menstrual cycle, average of once/month; denies change or worsening in nature or severity Pre-diabetes on metformin Sinus tachycardia on beta-cathy Sleep apnea severe per PCP note 03/2022-intermittent use Past Family History Family History Father Hypertension Stroke Mother Environmental allergies Hypertension Aunt Breast cancer maternal Grandfather (Maternal) Stomach cancer Heart disease Grandfather (Paternal) Family history of colon cancer Stomach cancer Heart disease Grandmother (Maternal) Stomach cancer Family history of diabetes mellitus Heart disease Asthma Grandmother (Paternal) Stomach cancer Heart disease Uncle No problems noted. Aunt No problems noted. Aunt Asthma Uncle Asthma Other No family history of adverse response to anesthesia No family history of bleeding disorder Past Surgical History Surgical History History of delivery 2004 (DURING C/S UTERINE FIBROID REMOVED) History of tooth extraction several Social History Smoking Status: Never smoker Do You Dip or Chew Tobacco: No Hx Alcohol Use: Yes alcohol intake frequency: holidays/special occasions only Hx Substance Use: No substance use type: does not use Review of Systems Respiratory: + snoring (bad sleep apnea) Cardiovascular: + palpitations (intermittently with the tachycardia - well managed on metoprolol) Physical Exam Vital Signs Last Vital Signs Temp 36.6 C 04/05/23 01:59 Pulse 90 04/05/23 07:07 Resp 18 04/05/23 07:07 BP 135/105 H 04/05/23 07:07 Pulse Ox 97 04/05/23 07:07 O2 Del Method Room Air 04/05/23 07:07 Constitutional + morbidly obese; no acute distress Eyes PERRL, conjunctivae normal, anicteric sclerae Neck normal visual inspection and trachea midline Respiratory normal respiratory effort, lungs clear to auscultation Cardiovascular RRR, no murmur, no edema Gastrointestinal (Abdomen) Inspection/Auscultation: abdomen normal to inspection and normal bowel sounds; abdomen not distended Percussion/Palpation: + abdomen tender (in epigastrium) and abdomen soft Musculoskeletal no cyanosis or clubbing, extremities motor strength 5/5 Neurologic awake; no focal motor deficits Psychiatric A+Ox3, euthymic affect Testing Laboratory Results 04/05/23 02:25 04/05/23 02:25 Urine Color Yellow 04/05/23 02:23 Urine Appearance Clear (Clear) 04/05/23 02:23 Urine pH 6.0 (4.5-7.5) 04/05/23 02:23 Ur Specific [place] 1.028 (1.000-1.030) 04/05/23 02:23 Urine Protein Negative (Negative) 04/05/23 02:23 Urine Glucose (UA) Negative (Negative) 04/05/23 02:23 Urine Ketones Negative (Negative) 04/05/23 02:23 Urine Nitrite Negative (Negative) 04/05/23 02:23 Ur Leukocyte Esterase Negative (Negative) 04/05/23 02:23
[2023-04-05] MEDS: ENOXAPARIN INJ 40 MG/0.4 ML SYR SQ SCH ×2 (12:43→20:11)
[2023-04-05] MEDS ORDERED: levoFLOXacin/D5W 500 MG/100 ML BAG IV SCH (13:00)
[2023-04-05] MEDS ORDERED: ATROPINE SULFATE 0.1 MG/ML 10ML SYR IV PRN (13:08)
[2023-04-05] MEDS ORDERED: HYDROmorphone INJ 2 MG/ML SYR/VIAL IV PRN (13:08)
[2023-04-05] MEDS ORDERED: ePHEDrine sulfate 50 MG/ML AMP IV PRN (13:08)
[2023-04-05] MEDS ORDERED: GLYCOPYRROLATE 0.2 MG/ML VIAL ONE ×2 (13:18→14:47)
[2023-04-05] MEDS ORDERED: NEOSTIGMINE METHYLSULFATE 1 MG/ML 10ML VIAL ONE (13:18)
[2023-04-05] MEDS ORDERED: MIDAZOLAM HCL 1 MG/ML 2ML VIAL ONE (13:18)
[2023-04-05] MEDS ORDERED: fentaNYL citrate PF 100 MCG/2 ML VIAL ONE ×2 (13:18)
[2023-04-05] MEDS ORDERED: DEXAMETHASONE SOD INJ 4 MG/ML VIAL ONE (13:18)
[2023-04-05] MEDS ORDERED: PROPOFOL IV EMULSION 10 MG/ML 20 ML VIAL IV ONE (13:18)
[2023-04-05] MEDS ORDERED: ONDANSETRON INJ 2 MG/ML 2 ML VIAL ONE (13:18)
[2023-04-05] MEDS ORDERED: LIDOCAINE 2% 2 ML VIAL/AMP(20MG/ML) INFIL ONE ×2 (13:18→13:19)
[2023-04-05] MEDS ORDERED: SUCCINYLCHOLINE CHLORIDE 20 MG/ML 10 ML VIAL IV ONE (13:20)
[2023-04-05] MEDS ORDERED: BUPIVACAINE 0.5 % 5 MG/1 ML MPF 30ML VIAL ONE (13:56)
[2023-04-05] MEDS ORDERED: ROCURONIUM BROMIDE 10 MG/ML 5 ML VIAL IV ONE (14:08)
[2023-04-05] MEDS ORDERED: SUGAMMADEX SODIUM 200 MG/2 ML VIAL IV ONE ×2 (15:13→15:33)
--- NOTE | 2023-04-05 15:41 | Operative Report ---
Post Operative Report Pre & Post Diagnosis Operation Date: 04/05/23 14:00 Pre-Op Diagnosis: Acute cholecystitis due to biliary calculus Post-Op Diagnosis: Acute cholecystitis due to biliary calculus I identified the patient and participated in the time-out.: Yes Procedure Operation Date: 04/05/23 14:00 Actual Procedures p Laparoscopic Cholecystectomy(Not Applicable) - Priyanka Sood MD Surgeon Priyanka Sood MD Financial Services Specialist none Estimated Blood Loss 5 Findings Consistent with Post-Op Diagnosis acute cholecystitis Fluids 1000 cc Specimens gallbladder Drains none Anesthesia Type General Complications none Disposition Accompanied Patient To Recovery: No Indications 38-year-old woman admitted with imaging findings and clinical exam consistent with acute cholecystitis. Description of Procedure The patient was on antibiotics preoperatively. She had an injection of Lovenox subcutaneous preoperatively for DVT prevention. She had placement of sequential compression devices. After the induction of general endotracheal anesthesia she was positioned with her arms out. Her abdomen was sterilely prepped and draped. After timeout, she was placed in Trendelenburg. A supraumbilical incision was made and a varies needle placed into the peritoneal cavity. This was tested with a saline drop test. Initial pressure was 5 mmHg and this was taken up to 15 mmHg. 3 additional trocars were placed under direct vision. This included a 5 to 5 mm in the right side of the abdomen and an 11 mm in the epigastrium. The gallbladder was noted to be acutely inflamed and distended. It was unable to be grasped. It was decompressed with a needle. This yielded clear bile. The gallbladder was then retracted over the edge of the liver. Dissection was begun at the triangle of Calot and the cystic duct identified. The cystic duct was triangulated and critical views seen anteriorly and posteriorly. A medium large 10 mm clip tawer was then used to clip and then divide the duct. The cystic artery was identified and similarly clipped and divided. The gallbladder was dissected off the liver bed. There was no spillage of stones. The gallbladder was placed in Endobag and removed through the epigastric incision. This did necessitate extending the epigastric incision due to the size of the stones. The abdomen was noted to be hemostatic. It was irrigated and suctioned clear. The trocars were removed. Half percent Marcaine was used for local anesthesia. The fascia of the epigastric incision was closed with an 0 Vicryl stitch. The skin of all 4 incisions was closed with running subcuticular 4-0 Vicryl sutures. Steri-Strips and sterile dressings were applied. She was awakened and taken to recovery in stable condition. I attest to the content of the Intraoperative Record and any orders documented therein. Any exceptions are noted below.
[2023-04-05] MEDS ORDERED: HYDROmorphone INJ 1 MG/ML SYRINGE ONE (16:06)
[2023-04-05] MEDS ORDERED: ACETAMINOPHEN 1000 MG/100 ML IV IV ONE ×2 (16:11)
[2023-04-05] MEDS ORDERED: ACETAMINOPHEN 1,000 MG/100 ML VIAL IV STA (16:14)
[2023-04-05] MEDS: LACTATED RINGER'S 1,000 ML IV SCH (17:08)
--- NOTE | 2023-04-05 17:35 | Anesthesiology Progress Note ---
Date of Service April 05, 2023 Anesthesia Post Procedure Vital Signs Vital Signs: Temp Pulse Pulse Resp BP BP Pulse Ox 04/05/23 16:40 36.8 C 102 H 14 132/61 98 04/05/23 16:30 94 H 17 118/65 95 04/05/23 16:20 98 H 20 110/64 94 04/05/23 16:10 109 H 22 107/67 93 04/05/23 16:00 118 H 20 118/69 98 04/05/23 15:54 36 C L 112 H 18 132/71 95 04/05/23 11:15 36.8 C 84 18 135/84 94 04/05/23 11:15 36.8 C 84 18 135/84 94 04/05/23 07:07 135/105 H 04/05/23 07:07 90 18 97 04/05/23 06:30 80 26 H 146/92 H 93 04/05/23 06:00 81 24 127/81 93 04/05/23 06:18 84 04/05/23 05:30 83 23 145/96 H 94 04/05/23 05:00 86 26 H 153/99 H 94 04/05/23 04:30 87 17 149/91 H 96 04/05/23 04:00 83 21 164/81 H 96 04/05/23 03:30 87 17 144/90 H 92 04/05/23 02:30 93 H 21 139/107 H 97 04/05/23 02:18 96 H 04/05/23 02:18 97 H 24 154/99 H 96 04/05/23 01:59 36.6 C 95 H 18 162/101 H 96 O2 Del Method O2 Flow Rate 04/05/23 16:40 Nasal Cannula 2 04/05/23 16:30 Nasal Cannula 3 04/05/23 16:20 Nasal Cannula 3 04/05/23 16:10 Nasal Cannula 4 04/05/23 16:00 Oxymask 4 04/05/23 15:54 Oxymask 6 04/05/23 11:15 Room Air 04/05/23 11:15 Room Air 04/05/23 07:07 04/05/23 07:07 Room Air 04/05/23 06:30 04/05/23 06:00 04/05/23 06:18 04/05/23 05:30 04/05/23 05:00 04/05/23 04:30 04/05/23 04:00 04/05/23 03:30 04/05/23 02:30 04/05/23 02:18 04/05/23 02:18 Room Air 04/05/23 01:59 Room Air Pain Intensity Abdomen: Pain Intensity: 6 Transfer of Care Handoff Completed per policy Notes Mental Status: alert / awake / arousable Patient Amnestic to Procedure: Yes Nausea / Vomiting: adequately controlled Pain: adequately controlled Airway Patency, RR, SpO2: stable & adequate BP & HR: stable & adequate Hydration State: stable & adequate Anesthetic Complications: no major complications apparent and Pt Satisfied with anesthetic care
--- NOTE | 2023-04-05 20:06 | Emergency Department Note ---
Impression & Plan Acute cholecystitis due to biliary calculus ED Provider Note CHIEF COMPLAINT: Epigastric pain HISTORY OF PRESENT ILLNESS: This 38 yo female patient with PMH of obesity, SVT, migraine headache, Chiari malformation and obstructive sleep apnea presents to the emergency department with complaints of epigastric pain. The patient has been experiencing pain off and on for the last 2 to 3 days but today it became severe. She did vomit x1. The pain is intermittent and sometimes can be correlated to food, but the timing is uncertain. She states she had chicken, rice and subsequently chicken nuggets at dinnertime. Patient denies any fevers or blood in the vomit. She denies any heavy alcohol use. She does not believe she is . REVIEW OF SYSTEMS: A review of systems was performed with positives and pertinent negatives listed in the history of present illness. 10 systems were reviewed and are otherwise negative. ALLERGIES: see below MEDICATIONS: see below PMH: see below SOCIAL HISTORY: see below DDx: Acute cholecystitis, symptomatic cholelithiasis, pancreatitis, gastritis, peptic ulcer disease, among others. PHYSICAL EXAM: Vital signs reviewed. General: Well-appearing 38-year-old female, in no significant distress. HEENT: No scleral icterus, PERRLA, neck supple. Atraumatic. Cardiovascular: Regular rate and rhythm, no extra sounds. Pulmonary: Clear to auscultation bilaterally, normal work of breathing. Abdomen: Soft, morbidly obese, tender in the epigastric region, nondistended, positive bowel sounds. Musculoskeletal: Atraumatic, no peripheral edema. Neurologic: Patient awake alert and oriented x 3, speech is clear Skin: Warm, dry, no rash EMERGENCY DEPARTMENT COURSE/MDM: This patient was evaluated and appeared to be in some discomfort, but no distress. IV access was obtained and laboratory work was drawn. The patient was placed on the secured entrance monitor noted to be in a normal sinus rhythm. She was medicated with IV morphine and Zofran. Ultrasound of the right upper quadrant was performed and reveals evidence of gallstones, dilated common bile duct and some pericholecystic fluid. There is no gallbladder. The patient did require second dose of morphine and Zofran. Laboratory work reveals a mildly elevated WBC at 12.8 with normal LFTs and lipase. Wall edema she was medicated with IV Mefoxin. MRCP was ordered after speaking with general surgery, Dr. Sood and reviewing the ultrasound findings. Patient has been admitted for further management. She is aware of the plan and agrees. MONITORING: An order for cardiac monitoring was placed and the patient is noted to be in a normal sinus rhythm at 97 beats per minute. RADIOLOGY: Chest x-ray to my interpretation reveals cardiomegaly with pulmonary vascular congestion. Ultrasound of the right upper quadrant, see read below. EKG: Normal sinus rhythm at 95 bpm, normal ST segments. QTc is 434, no PVC, no PAC. No change from previous dated May 27, 2022. 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 History of anesthesia reaction AT THE DENTIST, LIDOCAINE DOESN'T WORK FOR ME Migraines neurologic symptoms with per pt: difficulty speaking at times and left arm/left side goes numb; menstrual cycle, average of once/month; denies change or worsening in nature or severity Pre-diabetes on metformin Sinus tachycardia on beta-cathy Sleep apnea severe per PCP note 03/2022-intermittent use Surgical History History of delivery 2004 (DURING C/S UTERINE FIBROID REMOVED) History of tooth extraction several Family History Father Hypertension Stroke Mother Environmental allergies Hypertension Aunt Breast cancer maternal Grandfather (Maternal) Stomach cancer Heart disease Grandfather (Paternal) Family history of colon cancer Stomach cancer Heart disease Grandmother (Maternal) Stomach cancer Family history of diabetes mellitus Heart disease Asthma Grandmother (Paternal) Stomach cancer Heart disease Uncle No problems noted. Aunt No problems noted. 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 Other Information That Helps Us Care for You: No Feels Safe at Home: Yes and No Is there a partner from a previous relationship who is making you feel unsafe now?: No Any Concerns about Your Family Situation: No Would You Like to Speak to Someone About Your Situation: No Safety Concerns: Feels Safe At This Time Assistive Devices: Contacts Allergies Allergies Allergy/AdvReac Type Severity Reaction Status Date / Time amoxicillin Allergy Unknown Hives Verified 04/05/23 08:03 bee venom protein (honey bee) Allergy Unknown bee stings Verified 04/05/23 08:03 - localized swelling, trouble breathing with cat dander Allergy Unknown sneezing, Verified 04/05/23 08:03 itchy eyes clavulanic acid Allergy Unknown Hives Verified 04/05/23 08:03 ketorolac Allergy Unknown Hives Verified 04/05/23 08:03 promethazine Allergy Unknown UNKNOWN Verified 04/05/23 08:03 sumatriptan Allergy Unknown SHORTNESS Verified 04/05/23 08:03 OF BREATH tramadol Allergy Unknown Hives Verified 04/05/23 08:03 Home Meds Home Medications Medication Instructions Recorded Confirmed epinephrine 0.3 mg/0.3 mL 0.3 mg IM Q10M PRN allergies 06/27/19 04/05/23 injection, auto-injector cyclobenzaprine 10 mg tablet 10 mg PO TID 05/05/22 04/05/23 metoprolol tartrate 50 mg tablet 50 mg PO BID 05/05/22 04/05/23 pajoyro-mowqdxiuyunwg-bbqdauhl 250 1 tab PO UD PRN migraines 05/16/22 04/05/23 mg-250 mg-65 mg tablet (Excedrin Migraine) metformin 500 mg tablet 500 mg PO BID 04/05/23 04/05/23 semaglutide (weight loss) 2.4 2.7 mg subcut WK 04/05/23 04/05/23 mg/0.75 mL subcutaneous pen injector (Wegovy) semaglutide 1 mg/dose (4 mg/3 mL) 1 mg subcut UD 04/05/23 04/05/23 subcutaneous pen injector (Ozempic) Previous Rx's Medication Instructions Recorded acetazolamide 250 mg tablet 250 mg PO TID #90 tabs 10/08/22 rimegepant 75 mg disintegrating 75 mg PO DAILY PRN migraine 10/08/22 tablet (Nurtec ODT) headache #8 tabs Results & Data (ED) Vital Signs Vital Signs - 24 hr 04/05/23 01:59 04/05/23 02:18 04/05/23 02:18 Temperature 36.6 C Temperature Source Temporal Artery Scan Pulse Rate 95 H 96 H Pulse Rate [Apical] 97 H Pulse Rhythm [Apical] Regular Respiratory Rate 18 24 Respiratory Effort / Characteristics Non-Labored Respiratory Depth Normal Normal Blood Pressure 162/101 H Blood Pressure [Left Arm] 154/99 H Blood Pressure Mean 121 Blood Pressure Mean [Left Arm] 117 Pulse Oximetry 96 96 Oxygen Delivery Method Room Air Room Air Sepsis Recent Fever Within 48 Hours No Sepsis New/Unexplained Change in Mental Status No Sepsis Action Taken by Nursing No Action Required 04/05/23 02:30 04/05/23 03:30 04/05/23 04:00 Temperature Temperature Source Pulse Rate 93 H 87 83 Pulse Rate [Apical] Pulse Rhythm [Apical] Respiratory Rate 21 17 21 Respiratory Effort / Characteristics Respiratory Depth Blood Pressure 139/107 H 144/90 H 164/81 H Blood Pressure [Left Arm] Blood Pressure Mean 117 108 108 Blood Pressure Mean [Left Arm] Pulse Oximetry 97 92 96 Oxygen Delivery Method Sepsis Recent Fever Within 48 Hours Sepsis New/Unexplained Change in Mental Status Sepsis Action Taken by Nursing 04/05/23 04:30 04/05/23 05:00 04/05/23 05:30 Temperature Temperature Source Pulse Rate 87 86 83 Pulse Rate [Apical] Pulse Rhythm [Apical] Respiratory Rate 17 26 H 23 Respiratory Effort / Characteristics Respiratory Depth Blood Pressure 149/91 H 153/99 H 145/96 H Blood Pressure [Left Arm] Blood Pressure Mean 110 117 112 Blood Pressure Mean [Left Arm] Pulse Oximetry 96 94 94 Oxygen Delivery Method Sepsis Recent Fever Within 48 Hours Sepsis New/Unexplained Change in Mental Status Sepsis Action Taken by Nursing 04/05/23 06:18 04/05/23 06:00 04/05/23 06:30 Temperature Temperature Source Pulse Rate 84 81 80 Pulse Rate [Apical] Pulse Rhythm [Apical] Respiratory Rate 24 26 H Respiratory Effort / Characteristics Respiratory Depth Blood Pressure 127/81 146/92 H Blood Pressure [Left Arm] Blood Pressure Mean 96 110 Blood Pressure Mean [Left Arm] Pulse Oximetry 93 93 Oxygen Delivery Method Sepsis Recent Fever Within 48 Hours Sepsis New/Unexplained Change in Mental Status Sepsis Action Taken by [facility] Medications Current Medication List: was personally reviewed by me Laboratory Data Attestation: I reviewed the patient's lab results. 04/05/23 02:25 04/05/23 02:25 Lab Results 04/05/23 04/05/23 04/05/23 Range/Units 02: 02:25 02:25 WBC 12.84 H (4.8-10.8) K/ul RBC 4.70 (4.20-5.40) M/uL Hgb 13.8 (12.0-16.0) g/dl Hct 41.1 (37.0-47.0) % MCV 87.4 (80.0-100.0) fL MCH 29.4 (25.0-34.0) pg MCHC 33.6 (32.0-36.0) g/dL RDW Std Deviation 43.3 (36.4-46.3) fL RDW Coeff of Dayana 13.3 (11.5-14.5) % Plt Count 279 (130-400) K/uL MPV 10.1 (9.4-12.4) fL Immature Gran % (Auto) 0.4 % Neut % (Auto) 80.4 % Lymph % (Auto) 11.6 % Addison % (Auto) 5.9 % Eos % (Auto) 1.5 % Baso % (Auto) 0.2 % Neut # (Auto) 10.32 H (1.40-6.50) K/uL Lymph # (Auto) 1.49 (1.20-3.40) K/uL Addison # (Auto) 0.76 H (0.11-0.59) K/uL Eos # (Auto) 0.19 (0.00-0.50) K/uL Baso # (Auto) 0.03 (0.00-0.20) K/uL Immature Gran # (Auto) 0.05 (0.01-0.20) K/uL Sodium 135 L (136-145) mmol/L Potassium 3.6 (3.5-5.1) mmol/L Chloride 100 (98-107) mmol/L Carbon Dioxide 29 (21-32) mmol/L Anion Gap 6 (3-11) BUN 16 (6-23) mg/dl Creatinine 0.71 (0.6-1.2) mg/dl Est Cr Clr Drug Dosing 142.4 ml/min Est GFR ( Amer) 123.5 ml/min Est GFR (Non-Af Amer) 106.5 ml/min BUN/Creatinine Ratio 22.5 H (10-20) Glucose 133 H (70-99(Fasting)) mg/dl Calcium 8.6 (8.6-10.3) mg/dl Total Bilirubin 0.5 (0.2-1.0) mg/dl AST 13 (13-39) U/L ALT 22 (7-52) U/L Alkaline Phosphatase 56 (34-104) U/L Total Protein 6.9 (6.0-8.3) gm/dl Albumin 4.1 (3.4-5.0) gm/dl Globulin 2.8 (2.5-4.0) gm/dl Albumin/Globulin Ratio 1.5 (0.9-2) Lipase 32 (11-82) U/L HCG, Qual (Negative) Urine Color Yellow Urine Appearance Clear (Clear) Urine pH 6.0 (4.5-7.5) Ur Specific Farina 1.028 (1.000-1.030) Urine Protein Negative (Negative) Urine Glucose (UA) Negative (Negative) Urine Ketones Negative (Negative) Urine Blood Negative (Negative) Urine Nitrite Negative (Negative) Urine Bilirubin Negative (Negative) Urine Urobilinogen Negative (Negative) Ur Leukocyte Esterase Negative (Negative) 04/05/23 Range/Units 02:25 WBC (4.8-10.8) K/ul RBC (4.20-5.40) M/uL Hgb (12.0-16.0) g/dl Hct (37.0-47.0) % MCV (80.0-100.0) fL MCH (25.0-34.0) pg MCHC (32.0-36.0) g/dL RDW Std Deviation (36.4-46.3) fL RDW Coeff of Dayana (11.5-14.5) % Plt Count (130-400) K/uL MPV (9.4-12.4) fL Immature Gran % (Auto) % Neut % (Auto) % Lymph % (Auto) % Addison % (Auto) % Eos % (Auto) % Baso % (Auto) % Neut # (Auto) (1.40-6.50) K/uL Lymph # (Auto) (1.20-3.40) K/uL Addison # (Auto) (0.11-0.59) K/uL Eos # (Auto) (0.00-0.50) K/uL Baso # (Auto) (0.00-0.20) K/uL Immature Gran # (Auto) (0.01-0.20) K/uL Sodium (136-145) mmol/L Potassium (3.5-5.1) mmol/L Chloride (98-107) mmol/L Carbon Dioxide (21-32) mmol/L Anion Gap (3-11) BUN (6-23) mg/dl Creatinine (0.6-1.2) mg/dl Est Cr Clr Drug Dosing ml/min Est GFR ( Amer) ml/min Est GFR (Non-Af Amer) ml/min BUN/Creatinine Ratio (10-20) Glucose (70-99(Fasting)) mg/dl Calcium (8.6-10.3) mg/dl Total Bilirubin (0.2-1.0) mg/dl AST (13-39) U/L ALT (7-52) U/L Alkaline Phosphatase (34-104) U/L Total Protein (6.0-8.3) gm/dl Albumin (3.4-5.0) gm/dl Globulin (2.5-4.0) gm/dl Albumin/Globulin Ratio (0.9-2) Lipase (11-82) U/L HCG, Qual Negative (Negative) Urine Color Urine Appearance (Clear) Urine pH (4.5-7.5) Ur Specific Farina (1.000-1.030) Urine Protein (Negative) Urine Glucose (UA) (Negative) Urine Ketones (Negative) Urine Blood (Negative) Urine Nitrite (Negative) Urine Bilirubin (Negative) Urine Urobilinogen (Negative) Ur Leukocyte Esterase (Negative) Administered Medications Enoxaparin Sodium (Enoxaparin Inj 40 Mg/0.4 Ml Syr) 40 mg SQ BID MARCELLO Stop: 05/05/23 11:26 Last Admin: 04/05/23 12:43 Dose: 40 mg Documented By: [facility] Lactated Ringer's (Lr) 1,000 mls @ 100 mls/hr IV .Q10H COUNT INCLUDES THE [facility] Stop: 05/05/23 11:26 Last Admin: 04/05/23 17:08 Dose: 100 mls/hr Documented By: EM Levofloxacin/Dextrose (Levaquin/D5w) 500 mg in 100 mls @ 100 mls/hr IV Q24H COUNT INCLUDES THE [facility]; Protocol Stop: 04/09/23 11:26 Last Infusion: 04/05/23 17:09 Dose: 0 mls/hr Documented By: Admin: 04/05/23 12:43 Dose: 100 mls/hr Documented By: EM Metoprolol Tartrate (Metoprolol Tartrate 50 Mg Tab) 50 mg PO BID COUNT INCLUDES THE [facility] Stop: 05/05/23 11:26 Last Admin: 04/05/23 12:33 Dose: Not Given Documented By: EM Discontinued Medications Acetaminophen (Acetaminophen 1000 Mg/100 Ml Iv) Confirm Administered Dose 1,000 mg IV .STK-MED ONE Stop: 04/05/23 16:12 Last Admin: 04/05/23 17:42 Dose: Not Given Documented By: EM Acetaminophen (Acetaminophen 1000 Mg/100 Ml Iv) Confirm Administered Dose 1,000 mg IV .STK-MED ONE Stop: 04/05/23 16:12 Last Admin: 04/05/23 17:48 Dose: Not Given Documented By: EM Bupivacaine HCl (Bupivacaine 0.5 % 5 Mg/1 Ml Mpf 30ml Vial) Confirm Administered Dose 30 ml .ROUTE .STK-MED ONE Stop: 04/05/23 13:57 Last Admin: 04/05/23 15:04 Dose: 30 ml Documented By: BULMARO Hydromorphone HCl (Hydromorphone Inj 1 Mg/Ml Syringe) Confirm Administered Dose 1 mg .ROUTE .STK-MED ONE Stop: 04/05/23 16:07 Last Increment: 04/05/23 16:15 Dose: 0.5 mg Documented By: SED Increment: 04/05/23 16:05 Dose: 0.5 mg Documented By: SED Sodium Chloride (Nss 1000ml) 1,000 mls @ 999 mls/hr IV .Q1H1M STA Stop: 04/05/23 03:14 Last Infusion: 04/05/23 04:16 Dose: 0 mls/hr Documented By: Admin: 04/05/23 02:34 Dose: 999 mls/hr Documented By: HAI Cefepime HCl (Maxipime) 2,000 mg in 20 mls @ 5 mls/min IV NOW STA; Protocol Stop: 04/05/23 04:15 Last Admin: 04/05/23 04:17 Dose: 5 mls/min Documented By: HAI Sodium Chloride (Nss 1000ml) 1,000 mls @ 150 mls/hr IV .Q6H40M MARCELLO Stop: 05/05/23 07:14 Last Infusion: 04/05/23 11:46 Dose: 0 mls/hr Documented By: Admin: 04/05/23 07:20 Dose: 150 mls/hr Documented By: SILVANA Acetaminophen (Ofirmev) 1,000 mg in 100 mls @ 400 mls/hr IV NOW STA Stop: 04/05/23 16:28 Last Infusion: 04/05/23 17:43 Dose: 0 mls/hr Documented By: Admin: 04/05/23 16:25 Dose: 400 mls/hr Documented By: AMEYA Morphine Sulfate (Morphine Sulfate 4 Mg/Ml 1 Ml Carp\Vial) 4 mg IV NOW STA Stop: 04/05/23 02:15 Last Admin: 04/05/23 02:36 Dose: 4 mg Documented By: HAI Morphine Sulfate (Morphine Sulfate 4 Mg/Ml 1 Ml Carp\Vial) 4 mg IV NOW STA Stop: 04/05/23 05:06 Last Admin: 04/05/23 05:19 Dose: 4 mg Documented By: HAI Ondansetron HCl (Ondansetron Inj 2 Mg/Ml 2 Ml Vial) 4 mg IV NOW STA Stop: 04/05/23 02:15 Last Admin: 04/05/23 02:36 Dose: 4 mg Documented By: HAI Ondansetron HCl (Ondansetron Inj 2 Mg/Ml 2 Ml Vial) 4 mg IV NOW STA Stop: 04/05/23 05:06 Last Admin: 04/05/23 05:19 Dose: 4 mg Documented By: HAI Imaging Data Radiologist's Impression: Cholangiopancreatography MRI 04/05/23 06:35 MR MRCP HISTORY: Abnormal ultrasound. dilated CBD TECHNIQUE: MRCP of the abdomen was performed without contrast according to standard departmental protocol. COMPARISON STUDY: Abdominal ultrasound 04/05/2023. FINDINGS: Mild motion artifact results in suboptimal evaluation. The lung bases are clear. No hepatic or splenic masses. A few subcentimeter T2 hyperintense lesions within the left kidney favor cysts. Normal right kidney. No hydronephrosis. Normal pancreas. No retroperitoneal lymphadenopathy. Normal caliber abdominal aorta. The gallbladder is mildly distended. There are few gallstones at the neck of the gallbladder with the largest measuring 14 mm. There is trace pericholecystic fluid. Motion artifact results in suboptimal evaluation of the common bile duct and main pancreatic duct. However, the common bile duct appears to be normal and course and caliber measuring up to 4 mm. No definite filling defects within the common bile duct. The main pancreatic duct is likely normal in caliber. IMPRESSION: 1. Suboptimal evaluation of the common bile duct due to the motion artifact. However, the common bile duct appears to be normal in caliber. No definite filling defects within the common bile duct. 2. The gallbladder is mildly distended and contains a few gallstones. There is trace pericholecystic fluid. This could represent an acute cholecystitis. Clinical correlation recommended. 3. The main pancreatic duct is not well visualized due to the motion artifact but likely normal in caliber. ACT 112: Negative or not required by law. Electronically signed by: Cabrera Rush M.D. 04/05/2023 9:48 AM Discharge Plan Visit Data Chief Complaint: Abdominal Pain Stated Complaint: UPR ABD PAIN,NAUSEA,VOMITING ED Provider: Briana Ventura Discharge Problem: Acute cholecystitis due to biliary calculus Patient Disposition: Admitted As Inpatient Discharge Instructions Interventions: ED Discharge Assessment Last Done: 04/05/23 11:05
[2023-04-05] MEDS: acetaZOLAMIDE 250 MG TAB PO SCH (20:11)
--- NOTE | 2023-04-05 21:06 | Electrocardiogram Report ---
Test Reason : Blood Pressure : / mmHG Vent. Rate : 095 BPM Atrial Rate : 095 BPM P-R Int : 138 ms QRS Dur : 086 ms QT Int : 346 ms P-R-T Axes : 024 047 021 degrees QTc Int : 434 ms Normal sinus rhythm Normal ECG When compared with ECG of 27-MAY-2022 09:08, No significant change was found Confirmed by Steffen Fernando ([id number]) on 04/05/2023 9:05:24 PM Referred By: REFERRED SELF Confirmed By:Steffen Fernando
[2023-04-05] MEDS ORDERED: ACETAMINOPHEN 325 MG TAB PO PRN (23:15)
[2023-04-06] MEDS: LACTATED RINGER'S 1,000 ML IV SCH ×2 (02:50→10:44)
[2023-04-06] MEDS: METOPROLOL TARTRATE 50 MG TAB PO SCH (08:30)
[2023-04-06] MEDS: acetaZOLAMIDE 250 MG TAB PO SCH (08:30)
[2023-04-06] MEDS: ENOXAPARIN INJ 40 MG/0.4 ML SYR SQ SCH (08:31)
--- NOTE | 2023-04-06 10:30 | Discharge Summary ---
Date of Service April 06, 2023 Admission HPI Per Admitting Provider 38-year-old woman who presents to the emergency room complaining of epigastric pain that has been going on for the past few weeks. This has been occurring intermittently until when it became more constant. Since it has been progressively worsening. The pain is located directly in the epigastrium. There is no radiation to the back or shoulder. It is constant, sharp stabbing, throbbing and burning at times. She began to develop nausea and vomiting last night. She also noted chills and sweats and has been taking Tylenol over the course of the past few days for this. The pain is a 10 out of 10 in intensity. She has not noted any diarrhea. She denies any jaundice. She has been taking some stool softeners and laxatives over the course of the past few weeks intermittently for constipation. She has no family history of gallbladder disease. She does take weight loss medication but her last dose of this was over 10 days ago. PMHx is notable for intermittent sinus tachycardia for which she takes metoprolol. Believes it is anxiety related. Also has "bad sleep apnea" but has been unable to use her cpap due to a deviated septum. Was scheduled for surgery for the deviated septum in the next few weeks. Principal Diagnosis Acute calculous cholecystitis Discharge Exam Constitutional WD/WN, vitals as above + obese, cooperative and comfortable; no acute distress and not ill appearing Respiratory normal respiratory effort; no respiratory distress, no labored breathing and no retractions Gastrointestinal (Abdomen) Inspection/Auscultation: abdomen normal to inspection; abdomen not distended Percussion/Palpation: + abdomen tender (at incision sites, appropriate postop) and abdomen soft; no guarding, abdomen not rigid and abdomen not firm Skin no rashes, warm and dry no jaundice Psychiatric A+Ox3, euthymic affect Discharge Data Allergies Allergy/AdvReac Type Severity Reaction Status Date / Time amoxicillin Allergy Unknown Hives Verified 04/05/23 08:03 bee venom protein (honey bee) Allergy Unknown bee stings Verified 04/05/23 08:03 - localized swelling, trouble breathing with cat dander Allergy Unknown sneezing, Verified 04/05/23 08:03 itchy eyes clavulanic acid Allergy Unknown Hives Verified 04/05/23 08:03 ketorolac Allergy Unknown Hives Verified 04/05/23 08:03 promethazine Allergy Unknown UNKNOWN Verified 04/05/23 08:03 sumatriptan Allergy Unknown SHORTNESS Verified 04/05/23 08:03 OF BREATH tramadol Allergy Unknown Hives Verified 04/05/23 08:03 Consultations 04/05/23 06:43 ED Decision to Admit Stat Procedures Performed Operation Date: 04/05/23 14:00 Actual Procedures p Laparoscopic Cholecystectomy(Not Applicable) - Priyanka Sood MD Ordered Studies 04/05/23 02:14 US gallbladder Stat 04/05/23 06:35 MRI MRCP [MR MRCP] Stat Hospital Course (1) Acute cholecystitis due to biliary calculus: Patient taken to operating room for laparoscopic cholecystectomy on 04/05/[address] Sood. Patient tolerated procedure without difficulty. Transferred to recovery then to medical/surgical floor for postoperative care. Diet advanced to clear liquids, PO Percocet and Tylenol prn pain, IV Zofran prn nausea, activity as tolerated. POD # 1 avss, postop pain controlled with Percocet, preoperative pain resolved, tolerated clear liquids without nausea or vomiting, and was urinating without difficulty. Patient was discharged home on POD # 1 in stable condition. (2) SVT (supraventricular tachycardia): well managed on metoprolol (3) Obstructive sleep apnea: unable to use cpap due to deviated septum Total Time Total Time Spent Total Time Spent (In Minutes): 30 Total Time Includes: Examination of the Patient, Discharge Planning and Medication Reconciliation Discharge Plan Discharge Items Patient Disposition: Home - Self-Care Reason For Visit: ACUTE CHOLECYSTITIS Discharge Diagnosis: Acute calculous cholecystitis Activity: Per Instructions section Non-emergency contact: Primary Care Provider and Surgeon Call non-emergency contact if: you have any medication questions, your pain is not controlled, your pain is concerning for you, you have a fever, your temperature is above 101, your wound has increased redness, your wound has increased drainage and your wound pain has increased Follow-up/Referrals: Chela Molina MD [Primary Care Provider] - Anabelle Lai PA-C [Physician [employer] Manager] - Diet: Low Fat Addtl Attending Provider Instructions: Post-Surgical ~Discharge Instructions Activity Recommendations: - lifting limitation: (20 pounds for 2 weeks), - exercise/sex/sports limit: (nonstrenuous for 2 weeks), - driving or machine use limit: (none for 1 week or until pain free and no longer taking narcotic pain medication), - Shower/bathe limit: (may shower beginning tonight) Diet: - Low fat diet recommended for 2 weeks and then can slowly introduce back into diet SPECIAL CARE INSTRUCTIONS: - May shower tonight. Let water run over area and pat dry. Do not submerge incisions underwater (swimming, bathing, hot tubs) for 2 weeks. - Leave steri strips on for one week and then remove. - Call the surgeon's office with any questions or concerns - - (ex. temperature higher than 101 degrees F, excessive bleeding or pain). MEDICATIONS: - Resume previous medications unless instructed otherwise by your surgeon. - May take extra strength Tylenol as needed for mild to moderate pain -650 mg every 6 hours as needed - Percocet 1 every 6 hours, as needed for moderate to severe pain FOLLOW UP VISIT: - If not already scheduled, please call the office to schedule a two week follow-up appointment. Office number Pending Studies at Discharge: Yes (gallbladder pathology, will be reviewed at postop visit) Stand-Alone Forms: [facility] The[employer], Smoking Cessation Medications and DC Order Prescriptions: New oxycodone-acetaminophen 5-325 mg tablet 1 tab PO Q6H PRN (Reason: pain) Qty: 10 0RF Continued Nurtec ODT 75 mg tablet,disintegrating 75 mg PO DAILY PRN (Reason: migraine headache) Qty: 8 5RF Rx Instructions: 75mg po once a day prn acute migraine acetazolamide 250 mg tablet 250 mg PO TID Qty: 90 6RF epinephrine 0.3 mg/0.3 mL auto-injector 0.3 mg IM Q10M PRN (Reason: allergies) metoprolol tartrate 50 mg tablet 50 mg PO BID cyclobenzaprine 10 mg tablet 10 mg PO TID metformin 500 mg tablet 500 mg PO BID Wegovy 2.4 mg/0.75 mL pen injector 2.7 mg SUBCUT WK Rx Instructions: take every 7 days Ozempic 1 mg/dose (4 mg/3 mL) pen injector 1 mg SUBCUT UD Excedrin Migraine 250-250-65 mg Tablet 1 tab PO UD PRN (Reason: migraines) Discharge Orders: Discharge Order (Routine); Ordered 04/06/23 Ordered By: Anabelle Lai Admission Data Admit Date/Time: 04/05/23 06:49 Attending Provider: Priyanka Sood Admit Provider: Priyanka Sood Primary Care Provider: Chela Molina Other Providers: Priyanka Sood
== END 2023-04-06 11:48 | disposition home or self-care (01) ==
LOC: ED 01:56 → EDINP 01:56 → 3N 11:05

== ENCOUNTER 2023-10-24 21:32 | Inpatient (IN) ==
--- OUTSIDE RECORDS SUMMARY | 2023-10-24 21:38 | External Medical Summary | Continuity of Care Document ---
Author Name Unknown Organization [address] Address [address] [place] [id number] Care Team Providers Care Doctor Of Naprapathy Name Role Phone Chela Molina Remy Primary Care Physician [phone] [id number] Date(s): 10/19/23 - 10/19/[address], [address] [place] [address] [place] [phone] Encounter Diagnosis Diabetes(Discharge Diagnosis) - 10/19/23 Glucosuria(Discharge Diagnosis) - 10/19/23 Abdominal pain(Discharge Diagnosis) - 10/19/23 Microscopic hematuria(Discharge Diagnosis) - 10/19/23 Type 2 diabetes mellitus(Discharge Diagnosis) - 10/19/23 Flank pain(Discharge Diagnosis) - 10/19/23 Ureterolithiasis(Discharge Diagnosis) - 10/19/23 Discharge Disposition: Home or Self Care Attending Physician: DO Duval Kristen M Allergies, Adverse Reactions, Alerts Substance Reaction Severity Status Toradol hives Active Imitrex chest pain sob Active Phenergan hives Active Augmentin hives Active Bee sting 1 Active Cats Active shrimp eye swelling Active 1swelling Assessment and Plan Extracted from: Title:Abdominal pain/ Diabetes Author:DO Casanova G ary Date:10/19/23 1.Abdominal pain Acute w/ systemic symptoms or complicated injury Goal:Resolution Data:unique tests ordered:CT of the abdomen pelvis without contrast stat,urinalysis, POCurine test Plan: Physical exam is consistent with akidney stone on the left side. Will evaluate further with a statCT without contrast. Urinalysis demonstrated microscopic hematuria, however, she also hadglucose urea withit being greater than 1000onUA. Will treat stonebased on size. In the meantime, we will sendFlomax to pharmacy. 30 mg of IM Toradol given in office. Patient unsure if she has had previous hive reaction to Toradol before buthas not had any shortness of breath or anaphylaxis like reaction to Toradol. Reynolds that benefits outweigh risks.IM Toradol administered in officeunder observation whileprior authorization going through for CT scan. On-callphysicianupdated on plan. Urine test orderedto evaluatefor pregnancyas inducing radiation. 2.Microscopic hematuria See above 3.Flank pain See above 4.Type 2 diabetes mellitus Chronic condition exacerbated/progressive/side effects of treatment Goal:Improvement Data:unique tests ordered:A1c _ Plan: With her elevation in glucose urea, suspect diabetes is actually out of control. A1c ordered. If A1c greater than 10, would need to initiateinsulin therapy. Patient understanding of this. Otherwise if less than 10 but greater than 7, consider addingadditional oral agent. Medications acetaZOLAMIDE 250 mg oral tablet Start: 03/11/22 12:06:00 EDT, See Instructions, Disp# 180 tab, Refills: 3, BID, Pharmacy: [facility] #[id number] Start Date: 03/11/22 Status: Ordered Ofelia D OTC 24HR Start: 04/16/17 9:05:00, 1 tab, PO, Daily Start Date: 04/16/17 Status: Ordered ALPRAZolam 0.5 mg oral tablet Start: 10/13/22 13:26:00 EST, 1 tab, PO, Daily, Disp# 30 tab, Refills: 1, PRN: as needed for anxiety, Pharmacy: [facility] #[id number] Start Date: 10/13/22 Status: Ordered cyclobenzaprine 10 mg oral tablet Start: 02/13/23 21:05:00 EDT, See Instructions, Disp# 90 tab, Refills: 1, take 1 tablet by mouth three times a day, Pharmacy: [facility] #[id number] Start Date: 02/13/23 Status: Ordered EpiPen 2-Nayan 0.3 mg injectable kit Start: 05/14/15 12:32:00, 0.3 mg =, IM, ONCE, Disp# 2 unit, PRN: as needed for anaphylaxis, Pharmacy: [facility] - [id number], 0.3 mg IM ONCE,PRN:as needed for anaphylaxis Start Date: 05/14/15 Status: Ordered Flomax 0.4 mg oral capsule Start: 10/19/23 17:43:00 EDT, 1 cap, PO, Daily, Disp# 30 cap, Refills: 0, Pharmacy: [facility] #[id number] Start Date: 10/19/23 Status: Ordered Lasix 20 mg oral tablet Start: 06/24/23 16:39:00 EST, 1 tab, PO, Daily, Disp# 30 tab, Refills: 5, Pharmacy: [facility] #[id number] Start Date: 06/24/23 Stop Date: 12/21/23 Status: Ordered metFORMIN 500 mg oral tablet Start: 03/30/23 7:49:00 EDT, 1 tab, PO, bid, Disp# 180 tab, Refills: 3, Pharmacy: [facility] #[id number] Start Date: 03/30/23 Stop Date: 03/24/24 Status: Ordered Metoprolol Tartrate 50 mg oral tablet Start: 11/20/22 7:54:00 EDT, 1 tab, PO, bid, Disp# 180 tab, Refills: 3, Pharmacy: [facility] #[id number] Start Date: 11/20/22 Stop Date: 11/15/23 Status: Ordered Mirena 52 mg intrauteral device Start: 05/23/19 11:20:00 EDT, 1 each, intrauterine, ONCE Start Date: 05/23/19 Status: Ordered Mounjaro 5 mg/0.5 mL subcutaneous solution Start: 07/07/23 11:15:00 EST, 5 mg =, subQ, q7days, Disp# 2 mL, Refills: 5, Pharmacy: [facility] #[id number] Start Date: 07/07/23 Stop Date: 01/03/24 Status: Ordered nortriptyline Start: 06/16/23 11:29:00 EST, 25 mg =, PO, Daily Start Date: 06/16/23 Status: Ordered Mental Status 10/19/23 Barriers to Learning one year None evide nt Mandatory Health Literacy Documentation Yes Health Literacy Communication Barriers N ever Primary Language Hungarian Problem List Condition Confirmation Course Effective Dates Status H ealth Status Informant Acute cholecystitis Confirmed Active Cataplexy and narcolepsy Confirmed Active Central obesity Confirmed Active Chronic mixed headache syndrome Confirmed Active Deviated nasal tip Confirmed Active Inappropriate sinus tachycardia Confirmed Active Intractable classical migraine Confirmed Active Johnson's neuroma Confirmed Active Metatarsalgia of right foot Confirmed Active Neuropathy of left foot Confirmed Active Obstructive sleep apnea Confirmed Active Type 2 diabetes mellitus Confirmed Active Weight disorder Confirmed Active Diagnosis Diagnosis Type Effective Dates Health Status Clinical Service Informant Abdominal pain Discharge Diagnosis 10/19/23 Microscopic hematuria Discharge Diagnosis 10/19/23 Type 2 diabetes mellitus Discharge Diagnosis 10/19/23 Flank pain Discharge Diagnosis 10/19/23 Diabetes Discharge Diagnosis 10/19/23 Non-Specified Glucosuria Discharge Diagnosis 10/19/23 Non-Specified Ureterolithiasis Discharge Diagnosis 10/19/23 Non-Specified Procedures Procedure Date Related Diagnosis Body Site Status Electroencephalogram 1 06/09/23 Co mpleted Laryngoscopy 2 05/05/22 Completed Chest x-ray 3 07/17/[address] head w/o contrast 4 07/17/17 Co mpleted Injection of steroid 5 06/25/15 Co mpleted X-ray of right foot 6 06/20/15 Com pleted Sinuses X-ray 7 11/22/14 Completed section and removal of uteran fibroid 8 Completed Tooth extraction 9 Comple hillary 1Normal appearing awake[facility] Imp[facility]: 1.Septal deviation left with 90% obstruction. Turbinate hypertrophy. Moderate adenoid tissue. Oropharynx shows 4+ right and 3+ left tonsillar hypertrophy. Hypopharynx and vocal cords visualized noting normal mobile vocal cords. Supine Meuller maneuver showed collapse of tonsi and palate collapsing over the larynx. 3IMPRESSION: Negative Chest 4IMPRESSION: No acute intracranial findings. 5right foot 61. No acute fractures. 2. Calcaneal spurring. 3. Mild degenerative changes the level of the first metatarsal phalangeal joint. 7No significant paranasal sinus disease identified by radiography [id number] Results Laboratory List Name Date Urine HCG POC Outpt (Urine POC Outpt) 10/19/23 Urine Chemstick POC Outpt (UA Chemstick POC Outpt) 10/19/23 Most recent to oldest [Reference Range]: 1 Beta HCG Ref Range [negative] (10/19/23 2:28 PM) Glucose Urine Dipstick Ref Range [negati ve] (10/19/23 2:01 PM) Bilirubin Urine Dipstick Ref Range [nega tive] (10/19/23 2:01 PM) Specific Sawyer Urine Ref Range [No Nor mal Defined] (10/19/23 2:01 PM) Protein Urine Dipstick Ref Range [negati ve] (10/19/23 2:01 PM) pH Urine Dipstick Ref Range [4.5 - 8.0] (10/19/23 2:01 PM) Ketones Urine Dipstick Ref Range [negati ve] (10/19/23 2:01 PM) Blood Urine Dipstick Ref Range [negative ] (10/19/23 2:01 PM) Urobilinogen Urine Dipstick Ref Range [0 .2 - 1.0 mg/dL] (10/19/23 2:01 PM) Nitrites Urine Dipstick Ref Range [negat marian] (10/19/23 2:01 PM) Leukocytes Urine Dipstick Ref Range [neg ative] (10/19/23 2:01 PM) U Leuk Est Negative (10/19/23 2:01 PM) U Nitrite Negative (10/19/23 2:01 PM) U Urobilinogen 0.2 mg/dl (10/19/23 2:01 PM) U Protein Negative (10/19/23 2:01 PM) U pH 6 (10/19/23 2:01 PM) U Blood Trace (10/19/23 2:01 PM) U Spec Grav 1.020 1 (10/19/23 2:01 PM) U Ketones Negative (10/19/23 2:01 PM) U Bili Negative (10/19/23 2:01 PM) U Gluc 1000 mg/dl (10/19/23 2:01 PM) U Appear Clear (10/19/23 2:01 PM) Beta hCG Ql Negative 2 (10/19/23 2:28 PM) Urine color urine dipstick Yellow (10/19/23 2:01 PM) 1Result Comment: Performed at: [facility], [address] [place] [address], [address], [place] [address] 2Result Comment: Performed at: [facility], [address] [place] [address], [address], [place] [address] Vital Signs Most recent to oldest [Reference Range]: 1 Patient Weight 140.1 kg (10/19/23 1:49 PM) Temperature [36.5-37.9 DegC] 36.7 DegC (10/19/23 1:49 PM) Blood Pressure 122/74mmHg (10/19/23 1:49 PM) Cuff Pulse Pressure 48 mmHg (10/19/23 1:49 PM) Social History Social History Type Response Smoking Status Never smoked cigaret heather Sex Female FCM Outpt Note * DO Duval Kristen M: MODIFY DO Duval Kristen M: MODIFY Event Display: FCM Outpt Note Authored Date: [id number] Chief Complaint Pt c/o sharp/stabbing, and constant ache L abdomen mid quadrant that radiates to the back since Thursday. Combo of tylenol/advil will make it tolerable. Denies fever, uti or bm symptoms. Will getwaves of nausea. History of Present Illness Patient is a 38-year-old female presents to the clinic for chief complaint of leftflank/abdominalpain. Pain has been going on since3 days agoand seems to be getting somewhat worse. She is having episodes of nausea that is associated when the pain getsat its worst. Currently her pain is a 7 out of 10 and is stabbing. It improves somewhat with ibuprofen/Tylenolbut only gets rid of the sharpness and does not resolve the pain entirely. She is not noting any phil hematuria. Patient states that the pain wassudden onsetwhen it did start. Patient reports that she is sexually activeintercourse frequently. She is currently utilizing a Mirena as control. No other complaints at today's appointment. Review of Systems Per HPI Physical Exam Vitals & Measurements T:36.7C BP:122/74 SpO2:98% WT:140.100kg(Dosing) WT:140.1kg PHQ2 Data(Data Documented on:10/19/2023 13:49) Emotional health assessment NEGATIVE General: Well-developed, well-nourished patient, in acute distress, pleasant. HEENT: No scleral injection or discharge. Moist mucous membranes. Lungs: Clear to auscultation bilaterally with good effort. Cardiac:Increased rateand regular rhythm. No murmurs. No extremity edema. Abdomen: Soft,but tender to palpation of theleft lower quadrantwith positive CVA tendernesson the left. Neurologic:Moves all extremities Assessment/Plan 1.Abdominal pain Acute w/ systemic symptoms or complicated injury Goal:Resolution Data:unique tests ordered:CT of the abdomen pelvis without contrast stat,urinalysis, POCurine test Plan: Physical exam is consistent with akidney stone on the left side. Will evaluate further with a statCT without contrast. Urinalysis demonstrated microscopic hematuria, however, she also hadglucose urea withit being greater than 1000onUA. Will treat stonebased on size. In the meantime, we will sendFlomax to pharmacy. 30 mg of IM Toradol given in office. Patient unsure if she has had previous hive reaction to Toradol before buthas not had any shortness of breath or anaphylaxis like reaction to Toradol. Reynolds that benefits outweigh risks.IM Toradol administered in officeunder observation whileprior authorization going through for CT scan. On-callph ysicianupdated on plan. Urine test orderedto evaluatefor pregnancyas inducing radiation. 2.Microscopic hematuria See above 3.Flank pain See above 4.Type 2 diabetes mellitus Chronic condition exacerbated/progressive/side effects of treatment Goal:Improvement Data:unique tests ordered:A1c _ Plan: With her elevation in glucose urea, suspect diabetes is actually out of control. A1c ordered. If A1c greater than 10, would need to initiateinsulin therapy. Patient understanding of this. Otherwise if less than 10 but greater than 7, consider addingadditional oral agent. Attestation I saw the patient and confirmed the velazquez portions of the history and physical exam and agree with the impression and plan above. ER precautions given Problem List/Past Medical History Ongoing Acute cholecystitis Cataplexy and narcolepsy Central obesity Chronic mixed headache syndrome Deviated nasal tip Inappropriate sinus tachycardia Intractable classical migraine Metatarsalgia of right foot Johnson's neuroma Neuropathy of left foot Obstructive sleep apnea Type 2 diabetes mellitus Weight disorder Procedure/Surgical History Electroencephalogram| Service Date: 06/09/2023Laryngoscopy| Service Date: 2Chest x-ray| Service Date: 07/17/2017CT head w/o contrast| Service Date: 07/17/2017Injection of steroid| Service Date: 06/25/2015X- ray of right foot| Service Date: 06/20/2015Sinuses X-ray| Service Date: 11/22/2014Tooth extractionCesarean section and removal of uteran fibroid Medications acetaZOLAMIDE(acetaZOLAMIDE 250 mg oral tablet), See Instructions ALPRAZolam(ALPRAZolam 0.5 mg oral tablet), 0.5 mg= 1 tab, PO, Daily, PRN, 1 refills cyclobenzaprine(cyclobenzaprine 10 mg oral tablet), See Instructions EPINEPHrine(EpiPen 2-Nayan 0.3 mg injectable kit), 0.3 mg, IM, ONCE, PRN fexofenadine-pseudoephedrine(Ofelia D OTC 24HR), 1 tab, PO, Daily furosemide(Lasix 20 mg oral tablet), 20 mg= 1 tab, PO, Daily, 5 refills ketorolac(Toradol), 30 mg= 1 mL, IM, ONCE levonorgestrel(Mirena 52 mg intrauteral device), 52 mg= 1 each, intrauterine, ONCE metFORMIN(metFORMIN 500 mg oral tablet), 500 mg= 1 tab, PO, bid, 3 refills metoprolol(Metoprolol Tartrate 50 mg oral tablet), 50 mg= 1 tab, PO, bid, 3 refills nortriptyline, 25 mg, PO, Daily tirzepatide(Mounjaro 5 mg/0.5 mL subcutaneous solution), 5 mg, subQ, q7days, 5 refills Allergies Augmentinhives Bee sting Cats Imitrexchest pain, sob Phenerganhives Toradolhives shrimpeye swelling Social History Smoking Status Never smoked cigarettes Alcohol Use:Current Frequency:1-2 times per year Employment/School Status:Employed Description:[employer] Exercise Duration (average number of minutes):45 Times per week:5-6 times/week Exercise type:Aerobics Home/Environment Lives with:Children, Mother Living situation:Home/Independent Feels unsafe at home:No - Comments: Home has smoke and CO detectors. Wears seatbelt in the care "sometimes." Uses sun protection when outside on her face. Nutrition/Health Diet description:Keto diet (under 20 grams/carbs/day) Type of diet:Regular Caffeine intake amount:Drinks 1 cup of hot tea/day Other Details:Has not had a blood transfusion. Has tattoos that were done professionally w/ sterile equipment. Has not been incarcerated. Has had negative HIV testing in the past. Sexual Sexually active:Yes Current partners:1 Self described orientation:Straight or heterosexual Other contraceptive use:IUD Substance Abuse - Denies Substance Abuse Tobacco - Denies Tobacco Use Family History Breast cancer: Paternal Aunt. Heart attack: MGF and PGF. Stroke: MGM and PGF. Tobacco abuse: Mother and MGM. Type II diabetes mellitus: MGM. Health Status Family Member(s) Recommendations Health Maintenance Pending(in the next year) OverDue Adult Influenza Vaccine due02/06/23and every 1year Due Adult COVID-19 Vaccination due10/19/23Unknown Frequency Adult Folic Acid Supplementation due10/19/23and every 3year Adult Social Determinants of Health Screening due10/19/23Unknown Frequency Adult Tdap/Td Vaccine due10/19/23nown Frequency Cervical Cancer Screening due10/19/23nown Frequency Diabetic Eye Exam due10/19/23nown Frequency Hepatitis C Screening due10/19/23One-time only Pneumococcal Vaccine Adults and Adolescents with Chronic Illness due10/19/23One-time only Due In Future Body Mass Index not due until12/11/23and every 366day Diabetes Management A1c not due until06/23/24and every 366day Satisfied(in the past 1 year) Satisfied Diabetes Management A1c on06/23/23.Satisfied by Contributor_system, [employer] Lipid Screening on06/23/23.Satisfied by Contributor_system, [id number] Electronic Signature on File Electronically Reviewed/Signed by: Jason Casanova DO Author Signature Dt/Tm:10/19/2023 02:23 PM Resident Department of Family Medicine Electronically Reviewed/Signed by: Lashay Duval DO Cosigner Signature Dt/Tm: 10/19/2023 03:59 PM Department of Family Medicine [facility] Patient Care team information Care Team Personnel Name: MD Jesse, Chela Alberto Position: Physician - Family Med Member Role: Primary Care Provider Address: Address: [address] [place] [id number] [place] Care Team Related Persons Name: RAJAT GODWIN Address: home [address] [place] [address], [phone]
--- OUTSIDE RECORDS SUMMARY | 2023-10-24 21:38 | External Medical Summary | Summary of Care ---
Author Name Unknown Organization [facility] Address [address] [place] [address] Phone [phone] Care Team Providers Care Keel Press Operator Name Role Phone Chela Molina MD Primary Care Provider [phone] Reason for Visit * Reason Onset Date Comments Test Results 10/23/2023 Unexpected or In determinate Result Encounter Details Date Type Department Care Team ([facility] st Contact Info) Description 10/23/2023 Telephone Laboratory, [facility] [address] [place] [address] Brook Zurita CRNP [address] [place] [address] Test Results (Unexpected or Indeterminate ... Allergies Active Allergy Reactions Criticality Noted Date Comments Amoxicillin-Pot Clavulanate Hives 06/02/20 12 Sumatriptan Base Edema airway High 06/02/2012 Ketorolac Tromethamine Hives 06/02/2012 Promethazine Hcl Rash 06/02/2012 documented as of this encounter (statuses as of 10/23/2023) Medications Medication Sig Dispensed Refills Start Date End Date Status FLEXERIL 5 MG PO TABS as needed 0 Act marian FIORICET 50-300-40 MG PO CAPS as needed 0 Active metoprolol (LOPRESSOR) 25 MG Tablet 25 mg at bedtime and 50 mg am 0 Active Topiramate (TOPAMAX) 50 MG Tablet Take 50 mg by mouth 2 times a day. 0 Active acetaZOLAMIDE (DIAMOX) 250 MG Tablet 0 10/24/2017 Active documented as of this encounter (statuses as of 10/23/2023) Active Problems Problem Noted Date Diagnosed Date BMI 45.0-49.9, adult 07/29/2016 Vitamin D insufficiency 09/21/2014 Overview: Sep 2014 = 25. Add Vit D. Dysmenorrhea 09/20/2014 Headache 09/20/2014 Overview: Per Dr. Wilson, neurosurgeon, headaches are not migrainous, but related to spinal fluid flow: Cerebellar tonsillar ectopia. Weaning off Fioricet and Topamax. ICD-10 update of inactive term Sinus tachycardia 09/20/2014 Overview: On Metoprolol to regulate. Cervicalgia 09/20/2014 Overview: Followed by Dr. Montelongo, neurologist, [facility] [place]. Elavil 50 mg at HS. Contraception 09/20/2014 Overview: COCPs documented as of this encounter (statuses as of 10/23/2023) Social History Tobacco Use Types Packs/Day Years Used Date Smoking Tobacco: Never Smokeless Tobacco: Never Alcohol Use Standard Drinks/Week Comments Yes 0 (1 standard drink = 0.6 oz pur e alcohol) occasional Hunger Vital Sign Answer Date Recorded Within the past 12 months, y ou worried that your food would run out before you got the money to buy more. Never true 10/20/19 24 Within the past 12 months, t he food you bought just didn't last and you didn't have money to get more. Never true 10/20/2023 Sex and Gender Information Value Date Recorded Sex Assigned at Female 10/20/2023 9:49 PM EDT Gender Identity Female 10/20/2023 9:49 PM EDT Sexual Orientation Straight 10/20/2023 9: 49 PM EDT Job Start Date Occupation Industry Not on file Not on file Not on file documented as of this encounter Miscellaneous Notes * Telephone Encounter - Backer, DU Ellis - 10/23/2023 3:07 PM EDT Noted, pt has appt w/ on Thursday for removal. DU Ingram * Telephone Encounter - Daniel Brasher OSA - 10/23/2023 3:06 PM EDT Hello- The radiologist discovered an unexpected or indeterminate finding on Marlin Cavanaugh ([id number]) and asks that you review the following report. Study Type: US PELVIS TRANS-VAGINAL NON-OB Date of Study: 10/23/2023 IMPRESSION 1. IUD is abnormally positioned in the lower uterine segment. 2. Subcentimeter uterine fibroid. Please respond to this encounter to acknowledge receipt of this message and take responsibility to ensure this report is reviewed. Thank you, ISH Simon Client Service Rep [facility] [place] documented in this encounter Plan of Treatment Upcoming Encounters Date Type Department Care Team (Late st Contact Info) Description 10/26/2023 12:30 PM EDT Office Visit Gynecology/Obstetrics [facility] [address] [facility] [place] [address] Jackelin Nuñez MD [address] [place] [address] [place] [address] Health Maintenance Due Date Last Done Comments Diabetes Screening 1983 Lipid Panel 1983 HIV Screening 1998 Hepatitis C Screening 2001 DTaP,Tdap,and Td Vaccines (1 - Tdap) 2002 Hepatitis B (1 of 3 - 19+ 3-dose series) 2002 HPV/Co-Test 2013 Depression Screening 05/06/2017 05/06/2016 Cervical Cancer Screening 11/20/2020 Pap Smear 11/20/2020 11/20/2017, 09/20/2014, 06/02/2012 Mammogram 2023 COVID-19 Vaccine (3 - 2022-2 4 season) 2023 11/26/2020, 08/01/2020 Influenza Vaccine (FLU shot) (#1) 2023 IUD 7-Year 07/21/2025 07/21/2018 GARDASIL-HPV IMMUNIZATION SERIES Aged Out No longer eligible b ased on patient's age to complete this topic MENINGOCOCCAL (MENACTRA/MENVEO) Aged Out No longer eligible b ased on patient's age to complete this topic Pneumococcal Vaccine: Pediatrics (0 to 5 Years) and At-Risk Patients (6 to 64 Years) Aged Out No longer eligible b ased on patient's age to complete this topic documented as of this encounter Medical Devices Not on filedocumented as of this encounter Care Teams Keel Press Operator Relationship Specialty Start Date End Date Chela Molina MD [address] [place] [id number] PCP - General Family Medicine 11/20/17 documented as of this encounter
--- OUTSIDE RECORDS SUMMARY | 2023-10-24 21:38 | External Medical Summary | Summary of Care ---
Author Name Unknown Organization [facility] Address [address] [place] [address] Phone [phone] Care Team Providers Care Ice Seller Name Role Phone Chela Molina MD Primary Care Provider [phone] Reason for Visit * Reason Onset Date Comments Test Results 10/23/2023 Unexpected or In determinate Result Encounter Details Date Type Department Care Team ([facility] st Contact Info) Description 10/23/2023 Telephone Laboratory, [facility] [address] [place] [address] Brook Zurita CRNP [address] [place] [address] Test Results (Unexpected or Indeterminate ... Allergies [...] Overview: Followed by Dr. Montelongo, neurologist, [facility] [place]. Elavil 50 mg at HS. Contraception 09/20/2014 [...] unexpected or indeterminate finding on Marlin Cavanaugh ([id number]) and asks that you review the following report. Study Type: US PELVIS TRANS-VAGINAL NON-OB Date of Study: 10/23/2023 IMPRESSION 1. IUD is abnormally positioned in the lower uterine segment. 2. Subcentimeter uterine fibroid. Please respond to this encounter to acknowledge receipt of this message and take responsibility to ensure this report is reviewed. Thank you, ISH Simon Client Service Rep [facility] Medicine [place] documented in this encounter Plan of Treatment Upcoming Encounters Date Type Department Care Team (Late st Contact Info) Description 10/26/2023 12:30 PM EDT Office Visit Gynecology/Obstetrics [facility] [address] [facility] [place] [address] Jackelin Nuñez MD [address] [place] [address] [place] [address] Health Maintenance Due Date Last Done Comments [...] filedocumented as of this encounter Care Teams Ice Seller Relationship Specialty Start Date End Date Chela Molina MD [address] [place] [id number] PCP - General Family Medicine 11/20/17 documented as of this encounter
--- OUTSIDE RECORDS SUMMARY | 2023-10-24 21:38 | External Medical Summary | Summary of Care ---
Author Name Unknown Organization [facility] Address [address] [facility] [place] [address] Phone [phone] Care Team Providers Care Trades Helper Name Role Phone Chela Molina MD Primary Care Provider [phone] Encounter Details Date Type Department Care Team (Late st Contact Info) Description 10/21/2023 Telephone Gynecology/Obstetrics Shaan Clarke [address] [place] [address] Brook Zurita CRNP [address] [place] [address] Allergies Active Allergy Reactions Criticality Noted Date Comments Amoxicillin-Pot Clavulanate Hives 06/02/20 12 Sumatriptan Base Edema airway High 06/02/2012 Ketorolac Tromethamine Hives 06/02/2012 Promethazine Hcl Rash 06/02/2012 documented as of this encounter (statuses as of 10/21/2023) Medications Medication Sig Dispensed Refills Start Date [...] as of this encounter (statuses as of 10/21/2023) Active Problems Problem Noted Date Diagnosed Date [...] 09/20/2014 Overview: Followed by Dr. Montelongo, neurologist, [facility]. Elavil 50 mg at HS. Contraception 09/20/2014 Overview: COCPs documented as of this encounter (statuses as of 10/21/2023) Social History Tobacco Use Types Packs/Day Years [...] encounter Miscellaneous Notes * Telephone Encounter - Tiffanie Winchester RN - 10/21/2023 10:22 AM EDT Patient returned call. Made aware of message. Agreeable to scheduling. Sent to vicky. * Telephone Encounter - Anabelle Brasher RN - 10/21/2023 9:09 AM EDT left message for patient to call office * Telephone Encounter - Brook Zurita CRNP - 10/21/2023 9:04 AM EDT Per appt note, outside CT scan showed malpositioned IUD. We do not have these records. I'd prefer if she can get a pelvic u/s before her visit, if at all possible, as this is preferred imaging for the uterus. DU Ingram documented in this encounter Plan of Treatment Upcoming Encounters Date Type Department Care Team (Late st Contact Info) Description 10/21/2023 3:00 PM EDT Imaging Radiology [facility] 2nd [facility] [address] [facility] [place] [address] 10/22/2023 7:30 AM EDT Office Visit Gynecology/Obstetrics [facility] [address] [facility] [place] [address] Brook Zurita CRNP [address] [facility] [place] [address] Scheduled Orders Name Type Priority Associated Diagnoses Orde r Schedule US PELVIS TRANS-VAGINAL NON-OB Medical Imaging Routine Abnormal CT scan, pelvis Expected: 10/21/2023 (Approximate), Expires: 11/20/2024 Health Maintenance Due Date Last Done Comments Diabetes Screening 1983 Lipid Panel 1983 HIV Screening 1998 Hepatitis C Screening 2001 DTaP,Tdap,and Td Vaccines (1 - Tdap) 2002 Hepatitis B (1 of 3 - 19+ 3-dose series) 2002 HPV/Co-Test 2013 Depression Screening 05/06/2017 05/06/2016 Cervical Cancer Screening 11/20/2020 Pap Smear 11/20/2020 11/20/2017, 09/20/2014, 06/02/2012 Mammogram 2023 COVID-19 Vaccine (1 - 2022-2 4 season) 2023 Influenza Vaccine (FLU shot) (#1) 2023 IUD [...] Not on filedocumented as of this encounter Visit Diagnoses Diagnosis Abnormal CT scan, pelvis- Primary Nonspecific (abnormal) findings on radiological and other examination of abdominal area, including retroperitoneum documented in this encounter Care Teams Trades Helper Relationship Specialty Start Date End Date Chela Molina MD [address] [place] [address], [place] [address] PCP - General Family Medicine 11/20/17 documented as of this encounter
[2023-10-24] MEDS: SODIUM CHLORIDE 0.9% 500 ML IV STA (21:45)
[2023-10-24 22:14] LABS: Basophils # (auto) 0.05 K/uL (0.00-0.20); Basophils % (auto) 0.4 %; Eosinophils # (auto) 0.21 K/uL (0.00-0.50); Eosinophils % (auto) 1.5 %; Hematocrit (blood only) 44.1 % (37.0-47.0); Hemoglobin 14.4 g/dl (12.0-16.0); Immature Granulocytes # (auto) 0.05 K/uL (0.01-0.20); Immature Granulocytes % (auto) 0.4 %; Lymphocytes # (auto) 1.32 K/uL (1.20-3.40); Lymphocytes % (auto) 9.3 %; Mean Corpuscular Hemoglobin 29.3 pg (25.0-34.0); Mean Corpuscular Hgb Conc 32.7 g/dL (32.0-36.0); Mean Corpuscular Volume 89.6 fL (80.0-100.0); Monocytes # (auto) 0.96 K/uL (0.11-0.59); Monocytes % (auto) 6.8 %; Neutrophils # (auto) 11.53 K/uL (1.40-6.50); Neutrophils % (auto) 81.6 %; Platelet Count 306 K/uL (130-400); RDW Coefficient of Variation 14.6 % (11.5-14.5); RDW Standard Deviation 47.8 fL (36.4-46.3); Red Blood Count 4.92 M/uL (4.20-5.40); White Blood Count 14.12 K/ul (4.8-10.8)
[2023-10-24 22:19] LABS: Appearance Urine Cloudy (Clear); Bacteria Urine Automated Negative (Negative); Bilirubin Urine Negative (Negative); Blood Urine 3+ (Negative); Color Urine Yellow; Epithelial Cell Urine Auto >30 /lpf (0-5); Glucose Urine UA Negative (Negative); Ketones Urine Trace (Negative); Leukocyte Esterase Urine 1+ (Negative); Nitrite Urine Negative (Negative); RBC Urine Automated >30 /hpf (0-4); Urobilinogen Urine Negative (Negative); pH Urine 7.5 (4.5-7.5)
[2023-10-24 22:20] LABS: Protein Urine 1+ (Negative)
--- NOTE | 2023-10-24 22:29 | Emergency Department Note ---
History of Present Illness General Chief complaint: Kidney Stone Stated complaint: KIDNEY STONE, VOMITTING, LT FLANK PAIN Time Seen by Provider: 10/24/23 22:12 Source: patient, RN notes reviewed and old records reviewed (10/19/23-outpatient CAT scan for kidney stone) Mode of arrival: ambulatory Limitations: no limitations History of Present Illness Maximum Pain Intensity: 6 This patient is a 38-year-old female who has left flank pain since last , comes in with increasing pain and vomiting and nausea. She saw her doctor and was diagnosed with a kidney stone by CT it showed that she had left- sided proximal 8 mm stone she is been doing Tylenol and ibuprofen she has not exceeded the [id number] recommended dosages no dysuria hematuria no fever denies her bowels have been loose but no diarrhea she started having nausea and vomiting. No history of kidney stones prior. No fall or trauma. She does have a history of diabetes but is unsure what her last blood sugar was. Toradol is listed as an allergy however she tells me she is certain she had it in the office this past week and did fine without any hives or respiratory symptoms. Home Medications Medication Instructions Recorded Confirmed Type epinephrine 0.3 mg/0.3 mL 0.3 mg IM Q10M PRN allergies 06/27/19 10/24/23 History injection, auto-injector cyclobenzaprine 10 mg tablet 10 mg PO TID PRN MUSCLE SPASMS 05/05/22 10/24/23 History metoprolol tartrate 50 mg tablet 50 mg PO BID 05/05/22 10/24/23 History metformin 500 mg tablet 500 mg PO BID 04/05/23 10/24/23 History acetazolamide 250 mg tablet 250 mg PO TID #90 tabs 06/04/23 10/24/23 Rx rimegepant 75 mg disintegrating 75 mg PO DAILY PRN migraine 06/04/23 10/24/23 Rx tablet (Nurtec ODT) headache #8 tabs acetaminophen 500 mg tablet 1,000 mg PO DIRECTED PRN Pain 10/24/23 10/24/23 History (Tylenol Extra Strength) furosemide 20 mg tablet 20 mg PO QAM 10/24/23 10/24/23 History ibuprofen 200 mg tablet 600 - 800 mg PO DIRECTED PRN 10/24/23 10/24/23 History Pain nortriptyline 25 mg capsule 25 mg PO HS 10/24/23 10/24/23 History tamsulosin 0.4 mg capsule 0.4 mg PO DAILY 10/24/23 10/24/23 History Allergies Allergy/AdvReac Type Severity Reaction Status Date / Time bee venom protein (honey bee) Allergy Severe bee stings Verified 10/24/23 23:18 - localized swelling, trouble breathing with sumatriptan Allergy Severe SHORTNESS Verified 10/24/23 23:18 OF BREATH cat dander Allergy Intermediate sneezing, Verified 10/24/23 23:18 itchy eyes promethazine Allergy Intermediate Rash Verified 10/24/23 23:18 tramadol Allergy Intermediate Hives Verified 10/24/23 23:18 Past Med/Surg History Medical History History of anesthesia reaction AT THE DENTIST, LIDOCAINE DOESN'T WORK FOR ME 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 Migraines neurologic symptoms with per pt: difficulty speaking at times and left arm/left side goes numb; menstrual cycle, average of once/month; denies change or worsening in nature or severity Sleep apnea severe per PCP note 03/2022-intermittent use Sinus tachycardia on beta-cathy Pre-diabetes on metformin Chiari malformation pt denies correction, last saw [place] neuro 2015 Cerebellar disease Surgical History Hx of cholecystectomy March 2023 History of tooth extraction several History of delivery 2004 (DURING C/S UTERINE FIBROID REMOVED) Family History Father Hypertension Stroke Mother Environmental allergies Hypertension Aunt Breast cancer maternal Grandfather (Maternal) Stomach cancer Heart disease Grandfather (Paternal) Family history of colon cancer Stomach cancer Heart disease Grandmother (Maternal) Stomach cancer Family history of diabetes mellitus Heart disease Asthma Grandmother (Paternal) Stomach cancer Heart disease Uncle No problems noted. Aunt No problems noted. Aunt Asthma Uncle Asthma Other No family history of adverse response to anesthesia No family history of bleeding disorder Social History Smoking Status: Never smoker Do You Dip or Chew Tobacco: No; Hx Alcohol Use: Yes Alcohol Intake Frequency: Monthly or Less Hx Substance Use: No Preferred Language: British Communication Ability: Effective Disability Manager Required: No Beliefs That Will Affect Care: None marital status: Single Current Living Situation: Other Current Living Situation Comment: lives with boyfriend current occupational status: employed current occupation: Healthcare-Clerical Feels Safe at Home: Yes Assistive Devices: Contacts Review of Systems A total of 10 systems reviewed and were otherwise negative Physical Exam Vital Signs Vital Signs - 24 hr 10/24/23 21:35 Temperature 36.3 C L Temperature Source Temporal Artery Scan Pulse Rate 130 H Pulse Rhythm Regular Pulse Strength Normal Respiratory Rate 18 Respiratory Effort / Characteristics Non-Labored Spontaneous Respiratory Depth Normal Blood Pressure 179/101 H Blood Pressure Mean 127 Blood Pressure Position Sitting Pulse Oximetry 94 Oxygen Delivery Method Room Air Sepsis Recent Fever Within 48 Hours No Sepsis New/Unexplained Change in Mental Status N/A Sepsis Action Taken by Nursing No Action Required General: Well developed well nourished mild uncomfortable appearing middle-age female who in no acute distress, breathing comfortably on room air. Normal speech HEENT: Normal cephalic atraumatic. Pupils are equal round and reactive to light. Extraocular movements are intact. Oropharynx is pink with moist mucous membranes. No swelling of the mouth lips or tongue. Neck: Supple with a midline trachea. No meningeal signs or stiffness, no JVD or bruits. No Stridor. Chest: Clear to auscultation bilaterally. No wheezes or rhonchi. No increased work of breathing. Heart: Regular rate and rhythm without murmurs or gallops. Abdomen: Soft nontender, nondistended without rebound guarding or rigidity. Extremities: No cyanosis clubbing or edema. No calf tenderness or assymetry Spine/Back. Mildly tender to palpation in the left flank. No CVA tenderness Skin: Good turgor without rashes. Neurologic exam: Cranial nerves two through 12 are intact. Motor and sensation are intact and symmetrical throughout. Course Administered Medications Discontinued Medications Sodium Chloride (Nss) 500 mls @ 999 mls/hr IV .Q31M STA Stop: 10/24/23 22:08 Last Infusion: 10/24/23 23:06 Dose: Infused Documented By: Admin: 10/24/23 21:45 Dose: 999 mls/hr Documented By: BENJAMIN Ketorolac Tromethamine (Ketorolac Tromethamine 15 Mg/Ml Vial) 10 mg IV NOW ONE Stop: 10/24/23 22:24 Last Admin: 10/24/23 23:28 Dose: 10 mg Documented By: ANA MARIA Morphine Sulfate (Morphine Sulfate 4 Mg/Ml 1 Ml Carp\\Vial) 4 mg IV NOW STA Stop: 10/25/23 00:34 Last Admin: 10/25/23 00:39 Dose: 4 mg Documented By: ANA MARIA Ondansetron HCl (Ondansetron Inj 2 Mg/Ml 2 Ml Vial) 4 mg IV NOW STA Stop: 10/24/23 22:24 Last Admin: 10/24/23 23:30 Dose: 4 mg Documented By: ANA MARIA Medical Decision Making Differential Diagnosis Kidney stone, UTI, electrolyte or metabolic abnormality, dehydration, sepsis, infection Medical Records Attestation: I reviewed the patient's medical records. Home Medications Current Medication List: was personally reviewed by me Laboratory Data Attestation: I reviewed the patient's lab results. 10/24/23 21:45 10/24/23 21:45 Lab Results 10/24/23 Range/Units 21:45 WBC 14.12 H (4.8-10.8) K/ul RBC 4.92 (4.20-5.40) M/uL Hgb 14.4 (12.0-16.0) g/dl Hct 44.1 (37.0-47.0) % MCV 89.6 (80.0-100.0) fL MCH 29.3 (25.0-34.0) pg MCHC 32.7 (32.0-36.0) g/dL RDW Std Deviation 47.8 H (36.4-46.3) fL RDW Coeff of Dayana 14.6 H (11.5-14.5) % Plt Count 306 (130-400) K/uL MPV 10.0 (9.4-12.4) fL Immature Gran % (Auto) 0.4 % Neut % (Auto) 81.6 % Lymph % (Auto) 9.3 % Cloud % (Auto) 6.8 % Eos % (Auto) 1.5 % Baso % (Auto) 0.4 % Neut # (Auto) 11.53 H (1.40-6.50) K/uL Lymph # (Auto) 1.32 (1.20-3.40) K/uL Cloud # (Auto) 0.96 H (0.11-0.59) K/uL Eos # (Auto) 0.21 (0.00-0.50) K/uL Baso # (Auto) 0.05 (0.00-0.20) K/uL Immature Gran # (Auto) 0.05 (0.01-0.20) K/uL Sodium 137 (136-145) mmol/L Potassium 3.7 (3.5-5.1) mmol/L Chloride 98 (98-107) mmol/L Carbon Dioxide 26 (21-32) mmol/L Anion Gap 13 H (3-11) BUN 19 (6-23) mg/dl Creatinine 1.07 (0.6-1.2) mg/dl Est Cr Clr Drug Dosing 93.1 ml/min Est GFR ( Amer) 75.2 ml/min Est GFR (Non-Af Amer) 64.9 ml/min BUN/Creatinine Ratio 17.8 (10-20) Glucose 177 H (70-99(Fasting)) mg/dl Calcium 10.1 (8.6-10.3) mg/dl Total Bilirubin 0.7 (0.2-1.0) mg/dl AST 35 (13-39) U/L ALT 52 (7-52) U/L Alkaline Phosphatase 72 (34-104) U/L Total Protein 8.2 (6.0-8.3) gm/dl Albumin 4.8 (3.4-5.0) gm/dl Globulin 3.4 (2.5-4.0) gm/dl Albumin/Globulin Ratio 1.4 (0.9-2) Urine Color Yellow Urine Appearance Cloudy A (Clear) Urine pH 7.5 (4.5-7.5) Ur Specific [place] 1.020 (1.000-1.030) Urine Protein 1+ H (Negative) Urine Glucose (UA) Negative (Negative) Urine Ketones Trace H (Negative) Urine Blood 3+ H (Negative) Urine Nitrite Negative (Negative) Urine Bilirubin Negative (Negative) Urine Urobilinogen Negative (Negative) Ur Leukocyte Esterase 1+ H (Negative) Urine WBC (Auto) 10-30 H (0-5) /hpf Urine RBC (Auto) >30 H (0-4) /hpf U Hyaline Cast (Auto) 1-5 (0-5) /lpf U Epithel Cells (Auto) >30 H (0-5) /lpf Urine Bacteria (Auto) Negative (Negative) Imaging Data Attestation: I personally reviewed and interpreted this imaging study as follows: My Impression: KUB x-raythere appears to be a large proximal stone on the left. This is as per my independent interpretation ECG Data Attestation: I personally reviewed and interpreted this ECG as follows: Indication: + nausea Rate (beats per minute): 102 Rhythm: + sinus tachycardia ECG Intervals/blocks: + Normal QRS, + Normal QT and + Normal NC ECG Omar: + Normal ECG ST segments: + Normal ST segments ECG Findings: no PACs or no PVCs Comparison ECG Date: from (10/19/23) Change: no significant change MDM Narrative This patient comes in as described above. She was seen and treated in triage to help expedite her care. She has a history of a known kidney stone reviewing her report it is large and proximal, it would not likely pass on its own she has been dealing with this for just over a week and has increasing pain and vomiting. IV access was established and she was hydrated with an IVnormal saline bolus she was given Toradol 10 mg IV and Zofran 4 mg IV. Again she tells me she had Toradol the other day without any problems at all. Blood work and urine was obtained. Her urinalysis is suboptimal given the number of epithelial cells but I do not think she likely has a infection. Her white count is elevated but she has no fever. The elevation white count may be a stress reaction from ongoing pain and nausea. She has normal renal function. Her KUB shows a proximal stone. She did tolerate the IV Toradol without any problems that but was still having pain so I did give her morphine 4 mg IV. I do think she should be admitted/observed as I do not think she will likely pass the stone and has been struggling with it for over a week at home and her has not gotten worse. I did discuss the case at length in consultation with Dr. Kang, who is the [facility] hospitalist, and she will see the patient in the ER for admission/observation. The patient did have sinus tachycardia on her EKG without ischemic changes and I think the tachycardia is likely secondary to pain Continuous cardiac monitoring: Orders placed in EMR for continuous cardiac monitoring: Upon my evaluation patient was noted to be in sinus tachycardia with a rate of 105 Impression & Plan Renal colic on left side, Kidney stone, Vomiting, Nausea Discharge Plan Visit Data Chief Complaint: Kidney Stone Stated Complaint: KIDNEY STONE, VOMITTING, LT FLANK PAIN ED Provider: Marshal Chu Discharge Problem: Renal colic on left side, Kidney stone, Vomiting, Nausea Forms Stand Alone Forms: [facility] [place] [employer] Prescriptions Prescriptions: No Action acetazolamide 250 mg tablet 250 mg PO TID Qty: 90 6RF Nurtec ODT 75 mg tablet,disintegrating 75 mg PO DAILY PRN (Reason: migraine headache) Qty: 8 5RF Rx Instructions: 75mg po once a day prn acute migraine epinephrine 0.3 mg/0.3 mL auto-injector 0.3 mg IM Q10M PRN (Reason: allergies) metoprolol tartrate 50 mg tablet 50 mg PO BID cyclobenzaprine 10 mg tablet 10 mg PO TID PRN (Reason: MUSCLE SPASMS) Rx Instructions: PER PT "USUALLY TAKE 10 MG AT HS EVERY NIGHT". metformin 500 mg tablet 500 mg PO BID acetaminophen [Tylenol Extra Strength] 500 mg Tablet 1,000 mg PO DIRECTED PRN (Reason: Pain) tamsulosin 0.4 mg capsule 0.4 mg PO DAILY ibuprofen 200 mg Tablet 600 - 800 mg PO DIRECTED PRN (Reason: Pain) furosemide 20 mg tablet 20 mg PO QAM nortriptyline 25 mg capsule 25 mg PO HS Rx Instructions: 2-3 hours before bedtime Referrals Referrals: Chela Molina MD [Primary Care Provider] - Discharge Problem: Vomiting Qualifiers: Vomiting type: unspecified Nausea presence: with nausea Qualified Code(s): R 11.2 - Nausea with vomiting, unspecified
[2023-10-24 22:46] LABS: Albumin Globulin Ratio 1.4 (0.9-2); Albumin Level 4.8 gm/dl (3.4-5.0); BUN Creatinine Ratio 17.8 (10-20); Bilirubin,Total 0.7 mg/dl (0.2-1.0); Calcium 10.1 mg/dl (8.6-10.3); Creatinine Clr Calc Pharmacy 93.1 ml/min; Est GFR (African American) 75.2 ml/min; Est GFR (Non-African American) 64.9 ml/min; Globulin 3.4 gm/dl (2.5-4.0); Potassium 3.7 mmol/L (3.5-5.1); Total Protein 8.2 gm/dl (6.0-8.3)
[2023-10-24] MEDS: KETOROLAC TROMETHAMINE 15 MG/ML VIAL IV ONE (23:28)
[2023-10-24] MEDS: ONDANSETRON INJ 2 MG/ML 2 ML VIAL IV STA (23:30)
[2023-10-25] MEDS: MoRPHine SULFATE 4 MG/ML 1 ML CARP\\VIAL IV STA (00:39)
--- NOTE | 2023-10-25 01:23 | History & Physical Report ---
Date of Service October 25, 2023 Assessment & Plan (1) Nephrolithiasis: Plan: Patient seen by outpatient provider 10/18 - CT A&P with 8 mm proximal kidney stone. Symptoms worsened despite conservative management with Flomax prompting evaluation. Patient may require urologic intervention - appreciate urology input. UA suspicious for infection. KUB pending. Urine culture pending. Start empiric abx CTX. f/u urine culture Urology consult, appreciate recs Ceftriaxone for abx - start 10/24 Continue Flomax Pain control - Toradol 15 mg Q6H PRN, morphine 2 mg Q3H and 4 mg Q4H PRN per pain scale Zofran for antiemetics - QTC 448 (2) Diabetes: Plan: Patient on metformin 500 mg BID. Last HbA1c 8.2 10/19/2023. Patient now with formal diagnosis of diabetes. Per [facility] records she was recently started on Mounjaro. Hold home meds and utilize SSI while inpatient. Hold off on basal dosing as patient is insulin naive. SSI, if requiring significant amount of insulin add on basal dosing AC HS (3) Severe obstructive sleep apnea: Plan: Patient using CPAP for 3-4 hours nightly. CPAP QHS as tolerated while inpatient. (4) Migraines: Plan: Continue home meds - nortriptyline, rimegepant, acetazolamide (5) SVT (supraventricular tachycardia): Plan: Patient on metoprolol tartrate 50 mg BID for sinus tachycardia. Continue while inpatient. (6) Edema: Plan: Patient on Lasix outpatient for BLE edema. Continue while inpatient. (7) Leukocytosis: Plan Code status: full DVT ppx: SCDs, low risk FENGI: carb consistent, NSS @ 125 mL/hr Dispo: MedSurg History of Present Illness Primary Care Provider: Chela Molina MD 38 y/o female presents to the ED with worsening left flank pain. Patient was diagnosed with an 8 mm kidney stone 10/18 and sent home with Flomax and conservative management. Stone has not passed and symptoms have worsened. Nausea, vomiting, and chills started 10/23 prompting re-evaluation in the ED. No fevers, SOB, CP, abdominal pain, constipation, or urinary symptoms. Patient has been taking ibuprofen and tylenol which may be masking a fever. XR ordered to eval location of stone in comparison to CT A&P. Pain control achieved with toradol and morphine. Zofran for antinausea medication. UA ?infectious with blood, WBC, leukocyte esterase. Upon my interview patient with good pain control and no nausea. Allergies Allergy/AdvReac Type Severity Reaction Status Date / Time bee venom protein (honey bee) Allergy Severe bee stings Verified 10/24/23 23:18 - localized swelling, trouble breathing with sumatriptan Allergy Severe SHORTNESS Verified 10/24/23 23:18 OF BREATH cat dander Allergy Intermediate sneezing, Verified 10/24/23 23:18 itchy eyes promethazine Allergy Intermediate Rash Verified 10/24/23 23:18 tramadol Allergy Intermediate Hives Verified 10/24/23 23:18 Home Medications Medication Instructions Recorded Confirmed Type epinephrine 0.3 mg/0.3 mL 0.3 mg IM Q10M PRN allergies 06/27/19 10/24/23 History injection, auto-injector cyclobenzaprine 10 mg tablet 10 mg PO TID PRN MUSCLE SPASMS 05/05/22 10/24/23 History metoprolol tartrate 50 mg tablet 50 mg PO BID 05/05/22 10/24/23 History metformin 500 mg tablet 500 mg PO BID 04/05/23 10/24/23 History acetazolamide 250 mg tablet 250 mg PO TID #90 tabs 06/04/23 10/24/23 Rx rimegepant 75 mg disintegrating 75 mg PO DAILY PRN migraine 06/04/23 10/24/23 Rx tablet (Nurtec ODT) headache #8 tabs acetaminophen 500 mg tablet 1,000 mg PO DIRECTED PRN Pain 10/24/23 10/24/23 History (Tylenol Extra Strength) furosemide 20 mg tablet 20 mg PO QAM 10/24/23 10/24/23 History ibuprofen 200 mg tablet 600 - 800 mg PO DIRECTED PRN 10/24/23 10/24/23 History Pain nortriptyline 25 mg capsule 25 mg PO HS 10/24/23 10/24/23 History tamsulosin 0.4 mg capsule 0.4 mg PO DAILY 10/24/23 10/24/23 History Past Med/Surg History Medical History History of anesthesia reaction AT THE DENTIST, LIDOCAINE DOESN'T WORK FOR ME 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 Migraines neurologic symptoms with per pt: difficulty speaking at times and left arm/left side goes numb; menstrual cycle, average of once/month; denies change or worsening in nature or severity Sleep apnea severe per PCP note 03/2022-intermittent use Sinus tachycardia on beta-cathy Pre-diabetes on metformin Chiari malformation pt denies correction, last saw [place] [facility] 2015 Cerebellar disease Surgical History Hx of cholecystectomy March 2023 History of tooth extraction several History of delivery 2004 (DURING C/S UTERINE FIBROID REMOVED) Family History Father Hypertension Stroke Mother Environmental allergies Hypertension Aunt Breast cancer maternal Grandfather (Maternal) Stomach cancer Heart disease Grandfather (Paternal) Family history of colon cancer Stomach cancer Heart disease Grandmother (Maternal) Stomach cancer Family history of diabetes mellitus Heart disease Asthma Grandmother (Paternal) Stomach cancer Heart disease Uncle No problems noted. Aunt No problems noted. 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 Other Information That Helps Us Care for You: No Feels Safe at Home: Yes Safety Concerns: Feels Safe At This Time Assistive Devices: Contacts Review of Systems 2 Review of Systems: See HPI Physical Exam 2 Physical Exam: Gen: well appearing female patient in NAD HEENT: AT NC MMM Resp: CTAB no wheezing no increased work of breathing CV: RRR no m/r/g clinically well perfused 2+ peripheral pulses Abd: soft, non-tender, non-distended, no CVA tenderness MSK: no obvious deformities Skin: no rashes or bruising Neuro: alert and oriented Psych: appropriate mood and affect Results & Data Results & Data Vital Signs (Past 12 Hours) Vital Signs Temp Pulse Resp BP Pulse Ox O2 Del Method 10/24/23 21:35 36.3 C L 130 H 18 179/101 H 94 Room Air Laboratory Results 10/24/23 21:45 10/24/23 21:45 Supervising Physician Co-Signing Physician Notes Patient seen and examined, chart reviewed,case discussed with Dr. Ho and I agree with the assessment and plan as above. In brief, patient is a 38yo female presenting with left kidney stone - ongoing pain, now with nausea and vomiting as well as chills. Patient first diagnosed with stone on 10/19/23 by PCP - 8mm proximal left stone. She was treated with Flomax. Persistent/progressive left flank pain now with nausea vomiting and chills. On exam she is resting in bed. Still with discomfort but NAD Skin - intact, no rashes/lesions HEENT - MMM, Neck supple Heart - +S1/S2, regular, no m/r/g Lungs - CTA, no rales/rhonchi Abd - +Bs, soft, NT/ND Ext - warm, well perfused Labs and images reviewed Assessment/Plan -Initiate Ceftriaxone, continue Flomax. Pain control with Toradol, Morphine and Zofran PRN -Urology consultation appreciated -Remainder as above Resident Activity Tracking Resident Involvement: Resident Care Provided Care Provided: Adult Hospital Medicine
[2023-10-25] MEDS ORDERED: GLUCAGON FOR INJ 1 MG VIAL SQ PRN (03:23)
[2023-10-25] MEDS ORDERED: ONDANSETRON INJ 2 MG/ML 2 ML VIAL IV PRN (03:23)
[2023-10-25] MEDS ORDERED: CARBOHYDRATES FOR HYPOGLYCEMIA PO PRN (03:23)
[2023-10-25] MEDS ORDERED: DEXTROSE 50% 50 ML SYRINGE IV PRN (03:23)
[2023-10-25] MEDS ORDERED: GLUCOSE 40% GEL 15 GM TUBE PO PRN (03:23)
[2023-10-25] MEDS ORDERED: MELATONIN 3 MG TAB PO PRN (03:23)
[2023-10-25] MEDS ORDERED: GLUCOSE 10 TAB/TUBE PO PRN (03:23)
[2023-10-25] MEDS: SODIUM CHLORIDE 0.9% 1,000 ML IV SCH (04:41)
[2023-10-25] MEDS: MoRPHine SULFATE 4 MG/ML 1 ML CARP\\VIAL IV PRN (04:44)
--- NOTE | 2023-10-25 07:13 | Hospitalist Progress Note ---
Date of Service October 25, 2023 Assessment & Plan (1) Nephrolithiasis: Plan: Patient seen by outpatient provider 10/18 - CT A&P with 8 mm proximal kidney stone. Symptoms worsened despite conservative management with Flomax prompting evaluation. Patient may require urologic intervention - appreciate urology input. UA suspicious for infection. KUB pending. Urine culture pending. Start empiric abx CTX. f/u urine culture; pending Urology consulted; NPO at midnight, observe today for passage, may need surg intervention but will revisit that tomorrow Ceftriaxone for abx - started 10/24 Continue Flomax Pain control - Toradol 15 mg Q6H PRN, morphine 2 mg Q3H and 4 mg Q4H PRN per pain scale Zofran for antiemetics - QTC 448 IVF 125/hr currently running (2) Diabetes: Plan: Patient on metformin 500 mg BID. Last HbA1c 8.2 10/19/2023. Patient now with formal diagnosis of diabetes. Per [facility] records she was recently started on Mounjaro. Hold home meds and utilize SSI while inpatient. Hold off on basal dosing as patient is insulin naive. SSI, if requiring significant amount of insulin, will add on basal dosing AC HS (3) Severe obstructive sleep apnea: Plan: Patient using CPAP for 3-4 hours nightly. CPAP QHS as tolerated while inpatient. (4) Migraines: Plan: Continue home meds - nortriptyline, rimegepant, acetazolamide (5) SVT (supraventricular tachycardia): Plan: Patient on metoprolol tartrate 50 mg BID for sinus tachycardia. Continue while inpatient. (6) Edema: Plan: Patient on Lasix outpatient for BLE edema. Continue while inpatient. (7) Leukocytosis: Plan DVT ppx: SCDs, low risk Admission and Anticipated Discharge Date Admission Date: October 25, 2023 Supervising Physician Co-Signing Physician Notes I personally examined the patient and verified all velazquez points of history and exam, discussed case, and agree with decision making with Dr Warner Patient sleeping comfortably whenever I went to see her. Discussed with resident physician. Urology input appreciated. Vitals noted, sleeping, sitting upright, no distress. HEENT normocephalic atraumatic. Breathing unlabored no accessory muscle use. She did not show snoring or apnea but was also sitting at at least a 45 degree angle. Skin without rashes pallor or icterus. Ureterolithiasislikely for cystoscopy and stenting tomorrow and less she shows spontaneous passage today and tomorrow. Continue current care for now. Antibiotics pending urine culture. DVT prophylaxis with ambulation, unless her hospitalization becomes prolonged. Subjective Pt is a 38 yo female with a past medical history of diabetes, ISH, SVT, migraines, and hx Chiari malformation who presents to the hospital on 10/23 for nephrolithiasis refractory to outpatient conservative management. Today, she states she is feeling a bit better. Her nausea and vomiting she came in with is much better. She states that the pain is well controlled on the IV medications here and overall keep her pretty comfortable up until it starts to wear off right before the next dose. No other questions or complaints today, much more comfortable today. Review of Systems Review of Systems: Constitutional: denies fever, chills, Cardio: denies chest pain, palpitations Resp: denies shortness of breath, Physical Exam Physical Exam: General: Alert and oriented, no acute distress, HEENT: Normocephalic, moist oral mucosa, Cardio: Regular rate and rhythm, no murmur, Resp: Lungs clear to auscultation b/l, no wheezes or rhonchi, GI: bowel sounds active Skin: Warm, pink, dry, Results & Data Results & Data Vital Signs (Past 12 Hours) Vital Signs Temp Pulse Pulse Pulse Resp BP BP 10/25/23 03:25 10/25/23 03:25 36.5 C 113 H 18 125/88 10/25/23 03:23 36.5 C 113 H 18 125/88 10/25/23 03:14 36.5 C 113 H 18 125/88 10/24/23 21:35 36.3 C L 130 H 18 179/101 H Pulse Ox O2 Del Method 10/25/23 03:25 Room Air 10/25/23 03:25 93 Room Air 10/25/23 03:23 93 Room Air 10/25/23 03:14 93 Room Air 10/24/23 21:35 94 Room Air Resident Activity Tracking Resident Involvement: Resident Care Provided Care Provided: Adult Hospital Medicine
--- NOTE | 2023-10-25 07:41 | Electrocardiogram Report ---
Test Reason : Blood Pressure : / mmHG Vent. Rate : 102 BPM Atrial Rate : 102 BPM P-R Int : 130 ms QRS Dur : 082 ms QT Int : 344 ms P-R-T Axes : 026 051 018 degrees QTc Int : 448 ms Sinus tachycardia Otherwise normal ECG When compared with ECG of 05-APR-2023 02:15, No significant change was found Confirmed by Max Todd ([id number]) on 10/25/2023 7:41:40 AM Referred By: REFERRED SELF Confirmed By:Chris Todd
--- NOTE | 2023-10-25 08:14 | XRay Report ---
KUB HISTORY: Follow-up left kidney stone COMPARISON: Abdomen and pelvis CT 10/19/2023. FINDINGS: The bowel gas pattern is unremarkable. There are no dilated loops of small bowel to suggest an obstruction. There is again noted an 8 mm stone within the proximal left ureter at the level of the left L4 transverse process. This is similar to the prior study. No additional renal calculi ident ified. Prior cholecystectomy. No pneumoperitoneum or pneumatosis. An intrauterine device is again see n within the mid pelvis. This is malpositioned on the prior study. IMPRESSION: 1. No significant change in the 8 mm proximal left ureteral stone. 2. An intrauterine device is seen within the mid pelvis. This was malpositioned on the prior study. ACT 112: Negative or not required by law. Electronically signed by: Cabrera Rush M.D. 10/25/2023 8:13 AM
[2023-10-25] MEDS: TAMSULOSIN HCL 0.4 MG CAP PO SCH (08:15)
[2023-10-25] MEDS: KETOROLAC TROMETHAMINE 15 MG/ML VIAL IV PRN (08:15)
[2023-10-25] MEDS: METOPROLOL TARTRATE 50 MG TAB PO SCH (08:15)
[2023-10-25] MEDS: FUROSEMIDE 20 MG TAB PO SCH (08:15)
[2023-10-25] MEDS: acetaZOLAMIDE 250 MG TAB PO SCH (08:16)
[2023-10-25] MEDS: PANTOprazole 40 MG TAB PO SCH (08:16)
[2023-10-25] MEDS: CYCLOBENZAPRINE HCL 10 MG TAB PO PRN (08:16)
[2023-10-25] MEDS: INSULIN ASPART PER UNIT CHARGE SC SCH (08:21)
[2023-10-25] MEDS: ACETAMINOPHEN 500 MG TAB PO PRN (08:26)
--- NOTE | 2023-10-25 12:31 | Urology Consultation ---
Date of Consultation October 25, 2023 Assessment & Plan (1) Nephrolithiasis: (2) Diabetes: (3) Severe obstructive sleep apnea: (4) Migraines: (5) SVT (supraventricular tachycardia): (6) Edema: (7) Leukocytosis: Plan New patient with stone. Admitted to Hospitalist. Patient with worsening episodes of severe flank pain into the groin coming in waves. Has been increasing in severity. Pain medication and medications for control have been helpful but have not completely alleviated. Patient had undergone imaging. Did not show a considerable change in stone position after repeat imaging. Had KUB and CT scan. Imaging was reviewed interpreted by myself. CT showed stone in proximal ureter on left. Apprx 8 mm. Hydronephrosis. No considerable perinephric stranding or severe changes. White count 14.12. Cr 1.07. Hemoglobin 14.4. All other labs were reviewed pertinent positives and negatives in the HPI or plan section. Please see report for full information. Vitals were all assessed. Patient is dealing with tachycardia. Has been something that has been worked up actively. Most recent pulse was 110. Blood pressure 154/78. Respirations 16 temperature 36.6 oxygen saturation was 93% on room air. Reviewed imaging extensively with patient. Discussed patient's complicated medical and surgical history which was reviewed and summarized above all imaging was reviewed interpreted by myself all labs reviewed. Discussed options for conservative measure and maximum expulsion medical therapy and symptom controlled. Discussed ESWL. Discussed Ureteroscopy with extraction and/or laser lithotripsy. Risks and benefits were discussed. Stone free rates were also discussed as well as possibility of multiple procedures. Ureteral stents were discussed as well as post-operative issues and pain management. All questions were answered. Risks and benefits discussed at length for procedure. These include bleeding, infection, injury to surrounding tissues or organs, and risks associated with anesthesia. Patient currently has diet and has been tolerating food without major episodes of nausea or vomiting. Will plan for observation. Will make n.p.o. at midnight.. May be able to move forward with stone treatment versus intervention tomorrow. Will reassess. Patient is able to spontaneously pass stone would likely recommend sending for analysis. Did discuss passage rates and other concerns. Discussed issues related to stone. Discussed analysis. Will plan for close monitoring while hospitalized. History of Present Illness Attending Physician: Kushal Malik, DO History of Present Illness New consultation for patient with stone, discomfort, obstruction, and ill fee lings. Patient developed sudden onset of pain into flank going down and radiating into groin and back in waves comes and goes. Can be severe at times. Discussed and reviewed patient's family history for any history of stone disease. No family history of stones. No person history of stones. Also, discussed patient's medical surgery history especially related to any history of urinary issues or stone disease. Patient was admitted and is undergoing observation. Allergies Allergy/AdvReac Type Severity Reaction Status Date / Time bee venom protein (honey bee) Allergy Severe bee stings Verified 10/24/23 23:18 - localized swelling, trouble breathing with sumatriptan Allergy Severe SHORTNESS Verified 10/24/23 23:18 OF BREATH cat dander Allergy Intermediate sneezing, Verified 10/24/23 23:18 itchy eyes promethazine Allergy Intermediate Rash Verified 10/24/23 23:18 tramadol Allergy Intermediate Hives Verified 10/24/23 23:18 Home Medications Medication Instructions Recorded Confirmed Type epinephrine 0.3 mg/0.3 mL 0.3 mg IM Q10M PRN allergies 06/27/19 10/24/23 History injection, auto-injector cyclobenzaprine 10 mg tablet 10 mg PO TID PRN MUSCLE SPASMS 05/05/22 10/24/23 History metoprolol tartrate 50 mg tablet 50 mg PO BID 05/05/22 10/24/23 History metformin 500 mg tablet 500 mg PO BID 04/05/23 10/24/23 History acetazolamide 250 mg tablet 250 mg PO TID #90 tabs 06/04/23 10/24/23 Rx rimegepant 75 mg disintegrating 75 mg PO DAILY PRN migraine 06/04/23 10/24/23 Rx tablet (Nurtec ODT) headache #8 tabs acetaminophen 500 mg tablet 1,000 mg PO DIRECTED PRN Pain 10/24/23 10/24/23 History (Tylenol Extra Strength) furosemide 20 mg tablet 20 mg PO QAM 10/24/23 10/24/23 History ibuprofen 200 mg tablet 600 - 800 mg PO DIRECTED PRN 10/24/23 10/24/23 History Pain nortriptyline 25 mg capsule 25 mg PO HS 10/24/23 10/24/23 History tamsulosin 0.4 mg capsule 0.4 mg PO DAILY 10/24/23 10/24/23 History Patient History Medical History History of anesthesia reaction AT THE DENTIST, LIDOCAINE DOESN'T WORK FOR ME 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 Migraines neurologic symptoms with per pt: difficulty speaking at times and left arm/left side goes numb; menstrual cycle, average of once/month; denies change or worsening in nature or severity Sleep apnea severe per PCP note 03/2022-intermittent use Sinus tachycardia on beta-cathy Pre-diabetes on metformin Chiari malformation pt denies correction, last saw [place] [facility] 2015 Cerebellar disease Surgical History Hx of cholecystectomy March 2023 History of tooth extraction several History of delivery 2004 (DURING C/S UTERINE FIBROID REMOVED) Family History Father Hypertension Stroke Mother Environmental allergies Hypertension Aunt Breast cancer maternal Grandfather (Maternal) Stomach cancer Heart disease Grandfather (Paternal) Family history of colon cancer Stomach cancer Heart disease Grandmother (Maternal) Stomach cancer Family history of diabetes mellitus Heart disease Asthma Grandmother (Paternal) Stomach cancer Heart disease Uncle No problems noted. Aunt No problems noted. Aunt Asthma Uncle Asthma Other No family history of adverse response to anesthesia No family history of bleeding disorder Social History Smoking Status: Never smoker Second Hand Exposure: No; Do You Dip or Chew Tobacco: No; Hx Alcohol Use: No Hx Substance Use: No Preferred Language: [place] Communication Ability: Effective Hot Box Checker Required: No Beliefs That Will Affect Care: None marital status: Single Current Living Situation: Other Current Living Situation Comment: lives with boyfriend current occupational status: employed current occupation: Healthcare-Clerical Other Information That Helps Us Care for You: No Feels Safe at Home: Yes Safety Concerns: Feels Safe At This Time Assistive Devices: Contacts Review of Systems Review of Systems: All systems reviewed & are unremarkable except as noted in HPI & below Physical Exam Physical Exam: General: Alert and oriented x 3 in no acute distress. Patient is well nourished and well kept. HEENT: Normocephalic Atraumatic. Inspection normal. Cranial Nerves 2-12 Grossly intact. Nares are clear. Neck is supple. Normal inspection of face. Normal inspection of neck. Neurologic: No deficits on inspection. Baseline for motor function and sensory. Psychologic: Normal affect. Respiratory: Nonlabored. No use of accessory muscles. No tachypnea or dyspnea. Cardiovascular: No tachycardia Skin: Kingsley and Dry. No rashes or visible lesions. Extremities: Moving without issues. No motor deficits on inspection Lymphatics: No edema Abdomen: Soft Non-distended. No acites. No rebound or guarding. Results & Data Vital Signs (Past 12 Hours) Vital Signs Temp Pulse Pulse Resp BP Pulse Ox O2 Del Method 10/25/23 08:04 36.6 C 110 H 16 154/78 H 93 Room Air 10/25/23 03:25 Room Air 10/25/23 03:25 36.5 C 113 H 18 125/88 93 Room Air 10/25/23 03:23 36.5 C 113 H 18 125/88 93 Room Air 10/25/23 03:14 36.5 C 113 H 18 125/88 93 Room Air PG Care Time/CCT Total # of Minutes Spent Total Time Spent with Patient: Total time spent is greater than 50% in coordination of care (as documented) at patient's floor/unit and/or counseling patient: Coding Level of Care Code 84514 IN/OBS CONSULT LVL 5,80M Diagnoses Nephrolithiasis N20.0 Diabetes E11.9 Severe obstructive sleep apnea G47.33 Migraines G43.909 SVT (supraventricular tachycardia) I47.1 Edema R60.9 Leukocytosis D72.829
[2023-10-25] MEDS: MoRPHine SULFATE 2 MG/ML CARP IV PRN (17:19)
[2023-10-25] MEDS: NORTRIPTYLINE HCL 25 MG CAP PO SCH (20:04)
[2023-10-25] MEDS: cefTRIAXone SODIUM 2,000 MG in DEXTROSE 5 % MINI-B 50 ML IV SCH (21:51)
[2023-10-26] MEDS ORDERED: Nursing to Pharmacy Communication SCH ×2 (06:15→13:45)
[2023-10-26] MEDS: INSULIN ASPART PER UNIT CHARGE SC SCH ×2 (06:22→18:05)
[2023-10-26 07:25] LABS: Basophils # (auto) 0.03 K/uL (0.00-0.20); Basophils % (auto) 0.4 %; Eosinophils # (auto) 0.22 K/uL (0.00-0.50); Eosinophils % (auto) 3.3 %; Hematocrit (blood only) 37.6 % (37.0-47.0); Hemoglobin 12.2 g/dl (12.0-16.0); Immature Granulocytes # (auto) 0.02 K/uL (0.01-0.20); Immature Granulocytes % (auto) 0.3 %; Lymphocytes # (auto) 1.29 K/uL (1.20-3.40); Lymphocytes % (auto) 19.1 %; Mean Corpuscular Hemoglobin 29.5 pg (25.0-34.0); Mean Corpuscular Hgb Conc 32.4 g/dL (32.0-36.0); Mean Platelet Volume 9.8 fL (9.4-12.4); Monocytes # (auto) 0.66 K/uL (0.11-0.59); Monocytes % (auto) 9.8 %; Neutrophils # (auto) 4.53 K/uL (1.40-6.50); Neutrophils % (auto) 67.1 %; Platelet Count 217 K/uL (130-400); RDW Coefficient of Variation 14.8 % (11.5-14.5); RDW Standard Deviation 49.4 fL (36.4-46.3); Red Blood Count 4.13 M/uL (4.20-5.40); White Blood Count 6.75 K/ul (4.8-10.8)
[2023-10-26 08:09] LABS: BUN Creatinine Ratio 17.9 (10-20); Calcium 7.9 mg/dl (8.6-10.3); Creatinine Clr Calc Pharmacy 87.8 ml/min; Est GFR (African American) 67.5 ml/min; Est GFR (Non-African American) 58.2 ml/min; Potassium 4.2 mmol/L (3.5-5.1)
--- NOTE | 2023-10-26 08:14 | Urology Progress Note ---
Date of Service October 26, 2023 Assessment & Plan (1) Renal colic on left side: (2) Kidney stone: (3) Hydronephrosis: (4) Left ureteral stone: Plan 38yo F admitted with worsening left flank pain secondary to an obstructing 8 mm proximal left ureteral stone. - Afebrile and hemodynamically stable. - Labs reviewed -WBC 6.75, hemoglobin 12.2, creatinine 1.17 - Urine culture 10/24/23 with more than 3 types of organisms, all high counts - We discussed acute stone management with cystoscopy, stent placement, possible stone treatment. Ureteral stents were discussed as well as postoperative issues and pain management. She is aware of the possible need for an additional proce dure. Risks and benefits were discussed. All questions were answered. - Will plan to proceed to OR today for cystoscopy, left retrograde pyelogram, left ureteral stent placement, possible ureteroscopy, laser lithotripsy/stone treatment - Risks and benefits to be reviewed with patient by Dr. Mejia. - Keep NPO - Covered with scheduled IV Ceftriaxone. - Urology will follow. Attending note: Patient independently assessed, examined, interviewed, and evaluated. Agree with note as above. Patient's vitals and labs were all reviewed. Pertinent values in the HPI and plan section. Imaging was reviewed interpreted by myself. Agree with read. Vitals were reviewed. Discussed findings extensively with patient and family. Reviewed with nurse practitioner as well as consulting physicians/team. Patient's complicated medical and surgical history was reviewed and summarized above. Patient's surgical, medical, social, and family history were all reviewed with pertinent values as above. Discussed patient's current diagnosis as well as concerns and issues. Reviewed different options moving forward. Discussed potential risks and benefits as well as possible options and concerns. Reviewed potential surgical options and interventions. Discussed potential issues and concerns related to intervention. Risk and benefits were discussed extensively with patient and any available family. Discussed potential risks related to anesthesia. Discussed risks of bleeding infection and injury. Risks and benefits discussed at length for procedure. These include bleeding, infection, injury to surrounding tissues or organs, and risks associated with anesthesia. Patient states understanding and agrees to proceed. Will sign consent and schedule. Plan for cystoscopy and stone treatment left Admission and Anticipated Discharge Date Admission Date: October 25, 2023 Subjective Patient examined at bedside this AM. Awake, resting in bed on arrival. No acute distress. Has been NPO. Denies fever, chills, nausea, vomiting. Still with flank pain, managing with medication. Voiding without issue. Denies hematuria or dysuria Review of Systems Constitutional: as per Subjective / HPI Gastrointestinal: as per Subjective / HPI Genitourinary: as per Subjective / HPI Physical Exam Constitutional: no acute distress Respiratory: no respiratory distress and no labored breathing Musculoskeletal: Head/Neck/Chest: normocephalic Skin: No visible rashes or lesions to exposed skin areas Neurologic: moves all extremities and awake Psychiatric: A+Ox3, euthymic affect Results & Data Vital Signs (Past 12 Hours) Vital Signs Temp Pulse Resp BP Pulse Ox O2 Del Method O2 Flow Rate 10/26/23 07:57 36.3 C L 99 H 18 134/82 100 Room Air 2.0 10/25/23 22:03 110 H 140/80 PG Care Time/CCT Total # of Minutes Spent Total Time Spent with Patient: Total time spent is greater than 50% in coordination of care (as documented) at patient's floor/unit and/or counseling patient: Coding Level of Care Code 62263 SUB INP/OBS CARE 3/50MIN Diagnoses Renal colic on left side N23 Kidney stone N20.0 Hydronephrosis N13.30 Left ureteral stone N20.1
--- NOTE | 2023-10-26 09:53 | Anesthesiology Consultation ---
Date of Service October 26, 2023 Assessment & Plan Chart Review Chart Review: Acceptable Risk for Surgery and Patient NOT seen in Pre Admission Testing Consults Requested none ASA ASA3 Proposed Anesthesia Anesthesia Type: General History Surgery Operation Date: 10/26/23 07:00 Proposed Procedures p Cystoscopy, Left Retrograde Pyelogram with Stent Placement, Possible Ureteorscopy, Laser Lithotripsy - Milind Mejia, DO Height/Weight Height: 5 ft 3 in Weight: 139 kg Allergies Allergy/AdvReac Type Severity Reaction Status Date / Time bee venom protein (honey bee) Allergy Severe bee stings Verified 10/24/23 23:18 - localized swelling, trouble breathing with sumatriptan Allergy Severe SHORTNESS Verified 10/24/23 23:18 OF BREATH cat dander Allergy Intermediate sneezing, Verified 10/24/23 23:18 itchy eyes promethazine Allergy Intermediate Rash Verified 10/24/23 23:18 tramadol Allergy Intermediate Hives Verified 10/24/23 23:18 Medications Home Medications Medication Instructions Recorded Confirmed Last Taken epinephrine 0.3 mg/0.3 mL 0.3 mg IM Q10M PRN allergies 06/27/19 10/24/23 Unknown injection, auto-injector cyclobenzaprine 10 mg tablet 10 mg PO TID PRN MUSCLE SPASMS 05/05/22 10/24/23 10/23/23 metoprolol tartrate 50 mg tablet 50 mg PO BID 05/05/22 10/24/23 10/24/23 metformin 500 mg tablet 500 mg PO BID 04/05/23 10/24/23 10/24/23 08:00 acetazolamide 250 mg tablet 250 mg PO TID #90 tabs 06/04/23 10/24/23 10/24/23 14:00 rimegepant 75 mg disintegrating 75 mg PO DAILY PRN migraine 06/04/23 10/24/23 Unknown tablet (Nurtec ODT) headache #8 tabs acetaminophen 500 mg tablet 1,000 mg PO DIRECTED PRN Pain 10/24/23 10/24/23 Unknown (Tylenol Extra Strength) furosemide 20 mg tablet 20 mg PO QAM 10/24/23 10/24/23 10/24/23 ibuprofen 200 mg tablet 600 - 800 mg PO DIRECTED PRN 10/24/23 10/24/23 Unknown Pain nortriptyline 25 mg capsule 25 mg PO HS 10/24/23 10/24/23 10/23/23 tamsulosin 0.4 mg capsule 0.4 mg PO DAILY 10/24/23 10/24/23 10/24/23 Active Medications Generic Name Dose Route Start Last Admin Trade Name Freq PRN Reason Stop Dose Admin Acetaminophen 1,000 mg 10/25/23 03:23 10/26/23 08:08 Acetaminophen 500 Mg Tab PO 11/24/23 03:22 1,000 mg DAILY PRN Administration Pain Acetazolamide 250 mg 10/25/23 09:00 10/26/23 08:06 Acetazolamide 250 Mg Tab PO 11/24/23 08:59 250 mg TID MARCELLO Administration Cyclobenzaprine HCl 10 mg 10/25/23 03:23 10/25/23 08:16 Cyclobenzaprine Hcl 10 Mg Tab PO 11/24/23 03:22 10 mg TID PRN Administration MUSCLE SPASMS Furosemide 20 mg 10/25/23 09:00 10/26/23 08:06 Furosemide 20 Mg Tab PO 11/24/23 08:59 20 mg QAM MARCELLO Administration Ceftriaxone Sodium 2,000 mg/ 50 mls @ 100 mls/hr 10/25/23 22:00 10/25/23 22:30 Dextrose IV 11/04/23 21:59 Infused Q24H MARCELLO Infusion Protocol Sodium Chloride 1,000 mls @ 125 mls/hr 10/25/23 03:23 10/26/23 09:50 Nss IV 11/24/23 03:22 0 mls/hr .Q8H MARCELLO Infusion Insulin Aspart 0 units 10/26/23 06:00 10/26/23 06:22 Insulin Aspart Per Unit Charge SC 11/25/23 05:59 2 units Q6 MARCELLO Administration Ketorolac Tromethamine 15 mg 10/25/23 03:23 10/26/23 08:08 Ketorolac Tromethamine 15 Mg/Ml Vial IV 10/30/23 03:22 15 mg Q6H PRN Administration Pain Metoprolol Tartrate 50 mg 10/25/23 09:00 10/26/23 08:06 Metoprolol Tartrate 50 Mg Tab PO 11/24/23 08:59 50 mg BID MARCELLO Administration Miscellaneous 1 each 10/25/23 08:00 10/26/23 07:00 Rimegepant [Nurtec Odt]: Order Awaiting Action N/A 11/24/23 07:59 Not Given QS MARCELLO Morphine Sulfate 2 mg 10/25/23 03:23 10/25/23 21:51 Morphine Sulfate 2 Mg/Ml Carp IV 11/08/23 03:22 2 mg Q3H PRN Administration Pain 5+ Morphine Sulfate 4 mg 10/25/23 03:23 10/26/23 04:04 Morphine Sulfate 4 Mg/Ml 1 Ml Carp\Vial IV 11/08/23 03:22 4 mg Q4H PRN Administration Pain 8+ Nortriptyline HCl 25 mg 10/25/23 21:00 10/25/23 20:04 Nortriptyline Hcl 25 Mg Cap PO 11/24/23 20:59 25 mg HS MARCELLO Administration Pantoprazole Sodium 40 mg 10/25/23 09:00 10/26/23 08:06 Pantoprazole 40 Mg Tab PO 11/24/23 08:59 40 mg QAM MARCELLO Administration Tamsulosin HCl 0.4 mg 10/25/23 09:00 10/26/23 08:06 Tamsulosin Hcl 0.4 Mg Cap PO 11/24/23 08:59 0.4 mg DAILY MARCELLO Administration Past Medical History Medical History History of anesthesia reaction AT THE DENTIST, LIDOCAINE DOESN'T WORK FOR ME 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 Migraines neurologic symptoms with per pt: difficulty speaking at times and left arm/left side goes numb; menstrual cycle, average of once/month; denies change or worsening in nature or severity Sleep apnea severe per PCP note 03/2022-intermittent use Sinus tachycardia on beta-cathy Pre-diabetes on metformin Chiari malformation pt denies correction, last saw [place] neuro 2015 Cerebellar disease Exercise / Class Metabolic Activity II 4-5 Yardwork/Stairs/Walk up hill Past Family History Family History Father Hypertension Stroke Mother Environmental allergies Hypertension Aunt Breast cancer maternal Grandfather (Maternal) Stomach cancer Heart disease Grandfather (Paternal) Family history of colon cancer Stomach cancer Heart disease Grandmother (Maternal) Stomach cancer Family history of diabetes mellitus Heart disease Asthma Grandmother (Paternal) Stomach cancer Heart disease Uncle No problems noted. Aunt No problems noted. Aunt Asthma Uncle Asthma Other No family history of adverse response to anesthesia No family history of bleeding disorder Past Surgical History Surgical History Hx of cholecystectomy March 2023 History of tooth extraction several History of delivery 2004 (DURING C/S UTERINE FIBROID REMOVED) Past Anesthesia History No Hx of Anesthesia Complications and No Family Hx of Anesthesia Complications History of PONV No Hx of PONV and No Hx of Motion Sickness Social History Smoking Status: Never smoker Do You Dip or Chew Tobacco: No Hx Alcohol Use: No alcohol intake frequency: holidays/special occasions only Hx Substance Use: No substance use type: does not use Physical Exam Vital Signs Last Vital Signs Temp 36.3 C L 10/26/23 07:57 Pulse 99 H 10/26/23 07:57 Resp 18 10/26/23 07:57 BP 134/82 10/26/23 07:57 Pulse Ox 100 10/26/23 07:57 O2 Del Method Nasal Cannula 10/26/23 09:35 O2 Flow Rate 2 10/26/23 09:35 Testing Laboratory Results 10/26/23 06:47 10/26/23 06:47 Urine Color Yellow 10/24/23 21:45 Urine Appearance Cloudy (Clear) A 10/24/23 21:45 Urine pH 7.5 (4.5-7.5) 10/24/23 21:45 Ur Specific [place] 1.020 (1.000-1.030) 10/24/23 21:45 Urine Protein 1+ (Negative) H 10/24/23 21:45 Urine Glucose (UA) Negative (Negative) 10/24/23 21:45 Urine Ketones Trace (Negative) H 10/24/23 21:45 Urine Nitrite Negative (Negative) 10/24/23 21:45 Ur Leukocyte Esterase 1+ (Negative) H 10/24/23 21:45 Urine WBC (Auto) 10-30 /hpf (0-5) H 10/24/23 21:45 Urine RBC (Auto) >30 /hpf (0-4) H 10/24/23 21:45 U Hyaline Cast (Auto) 1-5 /lpf (0-5) 10/24/23 21:45 U Epithel Cells (Auto) >30 /lpf (0-5) H 10/24/23 21:45 Urine Bacteria (Auto) Negative (Negative) 10/24/23 21:45 10/24/23 21:45 Urine Culture - Final Urine,Clean Catch Three types of organisms present, all high counts. Repeat collection recommended. No further identifications or sensitivities to follow. 10/26/23 05:57 POC Glucose 178 H Electrocardiogram Date: 10/25/23 Findings: + ST @ (@ 102)
[2023-10-26] MEDS ORDERED: ONDANSETRON INJ 2 MG/ML 2 ML VIAL ONE (10:37)
[2023-10-26] MEDS ORDERED: PROPOFOL IV EMULSION 10 MG/ML 20 ML VIAL IV ONE ×2 (10:37→11:35)
[2023-10-26] MEDS ORDERED: LIDOCAINE 2% 2 ML VIAL/AMP(20MG/ML) INFIL ONE (10:37)
[2023-10-26] MEDS ORDERED: ATROPINE SULFATE 0.1 MG/ML 10ML SYR IV PRN (10:39)
[2023-10-26] MEDS ORDERED: LABETALOL HCL IV 5 MG/ML 20ML IV PRN (10:39)
[2023-10-26] MEDS ORDERED: ONDANSETRON INJ 2 MG/ML 2 ML VIAL IV PRN (10:39)
[2023-10-26] MEDS ORDERED: FLUMAZENIL 0.1 MG/1 ML 10 ML VIAL IV PRN (10:39)
[2023-10-26] MEDS ORDERED: NALOXONE HCL 0.4 MG/1 ML VIAL/CARP IV PRN (10:39)
[2023-10-26] MEDS ORDERED: MIDAZOLAM HCL 1 MG/ML 2ML VIAL ONE (10:44)
[2023-10-26] MEDS ORDERED: fentaNYL citrate PF 100 MCG/2 ML VIAL ONE (10:44)
[2023-10-26] MEDS ORDERED: PHENYLEPHRINE 100MCG/ML 10ML SYR IV ONE (11:14)
[2023-10-26] MEDS: DIATRIZOATE MEGLUMINE 30% 100ML VIAL INSTIL ONE (11:25)
--- NOTE | 2023-10-26 11:42 | Operative Report ---
PG Post Operative Report Pre & Post Diagnosis Operation Date: 10/26/23 07:00 Pre-Op Diagnosis: Nephrolithiasis Post-Op Diagnosis: Nephrolithiasis I identified the patient and participated in the time-out.: Yes Procedure Operation Date: 10/26/23 07:00 Actual Procedures p Cystoscopy, Left Retrograde Pyelogram with Stent Placement, Ureteorscopy, Laser Lithotripsy and extraction of stone, ureteral dialation(Left) - Milind Mejia DO Surgeon Milind Mejia, II, DO Ultrasonographer None Estimated Blood Loss 1 Findings Consistent with Post-Op Diagnosis Stricture of distal ureter. Stone obstructing the mid ureter. Stones destroyed to dust and small fragments and larger fragments removed. Specimens Stone Fragments Drains 6 Fr x 24 Left Anesthesia Type General Complications none Disposition Disposition: Recovery Room Indications Patient with bothersome stones. Risks and benefits discussed at length. Description of Procedure Patient was consented and brought back to the operating room. Patient was placed under anesthesia in the supine position and moved to the dorsal lithotomy position. Patient was prepped and draped in the regular sterile fashion. A time out was completed. A 30degree Cystoscope was placed into the bladder and the entire bladder was examined. The UO's were identified. The UO was cannulized with a catheter and a retrograde pyelogram was completed. A wire was then placed. The Rigid ureteroscope was taken into the ureter. 2 areas of stricture were noted in the distal ureter. Near the UO approximately a less than a centimeter away there was a severe narrowing that needed to be dilated. After dilation was complete the scope was able advance. The second area of narrowing was able to be dilated was well without major issue. Was muscle is significant of a stricture. The scope was able to be taken to the mid ureter where the stone was discovered. The stone was identified. A laser fiber was selected and the stones were pulverized to dust and small fragments. Larger fragments were grasped and removed and sent for analysis. A second wire was then placed and the rigid scope removed. The flexible scope was then taken over the second wire and advanced to the proximal ureter and renal pelvis. The entire pelvis was examined and the stones were further treated with the laser and basketed for removal. The entire area was once again examined. No residual large fragments or areas of concern were noted. The scope was slowly removed with the wire left in place. Contrast was placed through the scope for a pyelogram to assist in stent placement. The entire ureter was examined as the scope was slowly removed. No obstructions or other areas of concern were noted. With the wire in place, a 6 Fr Double J stent was placed. It was confirmed with fluoroscopy. With the stent in place, the bladder was emptied. The scope was removed. The patient was cleaned, aroused from anesthesia, and transferred to the pacu in stable condition having tolerated the procedure well with no complications. I was present and participated in all aspects of the procedure. The patient will be monitored in the PACU until transferred. Patient will be transferred back to the floor. Will plan to monitor. Will likely remove stent in approximately 5 to 7 days. I attest to the content of the Intraoperative Record and any orders documented therein. Any exceptions are noted below.
--- NOTE | 2023-10-26 11:50 | Fluoroscopy Report ---
FL retrograde includes kub CLINICAL HISTORY: LEFT URETERAL STENT / ADD ON CASE COMPARISON STUDY: Abdomen and pelvis CT 10/19/2023. FLUOROSCOPY TIME: 18 seconds. FLUOROSCOPY IMAGES: 2 Ka,r: 14.5 mGy FINDINGS: Retrograde opacification of the left renal collecting system followed by placement of a lef t ureteral stent. The ureteral stent appears in good position. IMPRESSION: Fluoroscopic assistance as above. ACT 112: Negative or not required by law. Electronically signed by: Cabrera Rush M.D. 10/26/2023 11:48 AM
--- NOTE | 2023-10-26 11:50 | Hospitalist Progress Note ---
Date of Service October 26, 2023 Assessment & Plan (1) Nephrolithiasis: Plan: Patient seen by outpatient provider 10/18 - CT A&P with 8 mm proximal kidney stone. Symptoms worsened despite conservative management with Flomax prompting evaluation. Patient may require urologic intervention - appreciate urology input. UA suspicious for infection. KUB pending. Urine culture pending. Start empiric abx CTX. f/u urine culture; pending Urology consulted; NPO at midnight, observe today for passage, may need surg intervention but will revisit that tomorrow Ceftriaxone for abx - started 10/24 Continue Flomax Pain control - Toradol 15 mg Q6H PRN, morphine 2 mg Q3H and 4 mg Q4H PRN per pain scale Zofran for antiemetics - QTC 448 IVF 125/hr currently running Plan for OR today per urology (2) Diabetes: Plan: Patient on metformin 500 mg BID. Last HbA1c 8.2 10/19/2023. Patient now with formal diagnosis of diabetes. Per [facility] records she was recently started on Mounjaro. Hold home meds and utilize SSI while inpatient. Hold off on basal dosing as patient is insulin naive. SSI, if requiring significant amount of insulin, will add on basal dosing AC HS (3) Severe obstructive sleep apnea: Plan: Patient using CPAP for 3-4 hours nightly. CPAP QHS as tolerated while inpatient. (4) Migraines: Plan: Continue home meds - nortriptyline, rimegepant, acetazolamide (5) SVT (supraventricular tachycardia): Plan: Patient on metoprolol tartrate 50 mg BID for sinus tachycardia. Continue while inpatient. (6) Edema: Plan: Patient on Lasix outpatient for BLE edema. Continue while inpatient. (7) Leukocytosis: Plan DVT ppx: SCDs, low risk Admission and Anticipated Discharge Date Admission Date: October 25, 2023 Supervising Physician Co-Signing Physician Notes ATTESTATION I also saw the patient and confirmed velazquez portions of the history and exam. I agree with the impression and plan in the resident documentation, and as summarized below. Patient is seen early afternoon post cystoscopy with left retrograde pyelogram and stent placement, ureteral dilatation, and extraction of stone. She is still little bit sore/tired. EXAM 124/46, 98, 20, 36.5, 90% on nasal cannula 2 L/min Awake and alert. No acute distress. Heart regular Respiration nonlabored DATA Labs WBC 6.75, hemoglobin 12.2 Sodium 136, potassium 4.2, BUN 21, creatinine 1.17 Micro Urine culture dated 10/24/2023 shows no growth IMPRESSION & PLAN Nephrolithiasis status post left retrograde pyelogram and stent placement, ureteral dilatation, and extraction of stone Pain management IV fluids Continue ceftriaxone Likely home in a.m. Additional per resident documentationl Subjective Patient seen and evaluated at bedside this morning. No acute events overnight. Continues to have significant pain, urology saw patient this morning. Plan for OR today with possible stent/lithotripsy. Denies LAL, CP, SOB, N/V/D. VSS, afebrile, labs largely unremarkable Review of Systems Review of Systems: reviewed, per HPI Physical Exam Physical Exam: Constitutional: well-appearing, no acute distress HEENT: NCAT, no conjunctival injection CV: regular rhythm, no murmur appreciated, extremities well-perfused, no LE edema Resp: CTABL, no wheezes/rales/rhonchi appreciated, no increased work of breathing MSK: no gross deformities appreciated, +flank pain Skin: warm, dry, no rash appreciated Neuro: alert, oriented, no focal neurologic deficit appreciated Results & Data Results & Data Vital Signs (Past 12 Hours) Vital Signs Temp Pulse Resp BP BP Pulse Ox O2 Del Method 10/26/23 10:09 36.6 C 95 H 22 109/94 100 Room Air 10/26/23 09:35 Nasal Cannula 10/26/23 07:57 36.3 C L 99 H 18 134/82 100 Room Air O2 Flow Rate 10/26/23 10:09 10/26/23 09:35 2 10/26/23 07:57 2.0
[2023-10-26] MEDS: fentaNYL citrate PF 100 MCG/2 ML VIAL IV PRN (12:35)
--- NOTE | 2023-10-26 12:54 | Anesthesiology Progress Note ---
Date of Service October 26, 2023 Anesthesia Post Procedure Vital Signs Vital Signs: Temp Pulse Pulse Resp BP BP Pulse Ox 10/26/23 12:50 87 16 137/78 94 10/26/23 12:40 90 19 124/93 94 10/26/23 12:30 36.6 C 97 H 24 118/86 99 10/26/23 12:20 97 H 24 131/84 99 10/26/23 12:10 99 H 19 117/79 99 10/26/23 12:00 100 H 25 H 104/63 98 10/26/23 11:53 36.6 C 104 H 17 120/53 L 95 10/26/23 10:09 36.6 C 95 H 22 109/94 100 10/26/23 09:35 10/26/23 07:57 36.3 C L 99 H 18 134/82 100 10/25/23 22:03 110 H 140/80 10/25/23 19:28 36.7 C 114 H 20 142/88 H 91 10/25/23 14:29 36.7 C 101 H 18 133/84 92 O2 Del Method O2 Flow Rate 10/26/23 12:50 Nasal Cannula 2 10/26/23 12:40 Nasal Cannula 2 10/26/23 12:30 Oxymask 3 10/26/23 12:20 Oxymask 3 10/26/23 12:10 Oxymask 6 10/26/23 12:00 Oxymask 10 10/26/23 11:53 Oxymask 12 10/26/23 10:09 Room Air 10/26/23 09:35 Nasal Cannula 2 10/26/23 07:57 Room Air 2.0 10/25/23 22:03 10/25/23 19:28 Room Air 10/25/23 14:29 Room Air Pain Intensity Left Flank: Pain Intensity: 3 Head: Pain Intensity: 4 Lower Abdomen: Pain Intensity: 4 Transfer of Care Handoff Completed per policy Notes Mental Status: alert / awake / arousable Patient Amnestic to Procedure: Yes Nausea / Vomiting: adequately controlled Pain: adequately controlled Airway Patency, RR, SpO2: stable & adequate BP & HR: stable & adequate Hydration State: stable & adequate Anesthetic Complications: no major complications apparent
--- NOTE | 2023-10-27 08:13 | Urology Progress Note ---
Date of Service October 27, 2023 Assessment & Plan (1) Renal colic on left side: (2) Kidney stone: (3) Hydronephrosis: (4) Left ureteral stone: Plan 38yo F admitted with worsening left flank pain secondary to an obstructing 8 mm proximal left ureteral stone. - POD #1 s/p Cystoscopy, Left Retrograde Pyelogram with Stent Placement, Ureteroscopy, Laser Lithotripsy and extraction of stone, ureteral dilation with Dr. Mejia. - Tolerating the stent with minimal bother. - Afebrile and hemodynamically stable. - Urine culture 10/24/23 with more than 3 types of organisms, all high counts - No further intervention warranted - Will arrange outpatient follow-up for stent removal. - Recommend d/c with Tamsulosin and prn pain medication for stent management. - Urology will sign-off. Please call with any further questions or concerns. Admission and Anticipated Discharge Date Admission Date: October 25, 2023 Subjective Patient examined at bedside this AM. Awake, resting in bed on arrival. No acute distress. Tolerating the stent with minimal bother - manageable with medication. Voiding spontaneously, some hematuria and dysuria. Feels she is emptying her bladder well. Denies fever, chills, nausea, vomiting. Review of Systems Constitutional: as per Subjective / HPI Gastrointestinal: as per Subjective / HPI Genitourinary: as per Subjective / HPI Physical Exam Constitutional: no acute distress Respiratory: no respiratory distress and no labored breathing Skin: No visible rashes or lesions to exposed skin areas Neurologic: moves all extremities and awake Psychiatric: A+Ox3, euthymic affect Results & Data Vital Signs (Past 12 Hours) Vital Signs Temp Pulse Resp BP Pulse Ox O2 Del Method 10/27/23 07:25 36.6 C 105 H 20 123/79 93 Room Air 10/27/23 04:55 36.6 C 102 H 18 135/71 95 Room Air 10/26/23 23:31 37.0 C 114 H 18 131/78 96 Room Air 10/26/23 20:50 Room Air PG Care Time/CCT Total # of Minutes Spent Total Time Spent with Patient: Total time spent is greater than 50% in coordination of care (as documented) at patient's floor/unit and/or counseling patient: Coding Level of Care Code 30824 SUB INP/OBS CARE 2/35MIN Diagnoses Renal colic on left side N23 Kidney stone N20.0 Hydronephrosis N13.30 Left ureteral stone N20.1
--- NOTE | 2023-10-27 12:11 | Discharge Summary ---
Date of Service October 27, 2023 Admission HPI Per Admitting Provider 38 y/o female presents to the ED with worsening left flank pain. Patient was diagnosed with an 8 mm kidney stone 10/18 and sent home with Flomax and conservative management. Stone has not passed and symptoms have worsened. Nausea, vomiting, and chills started 3 prompting re-evaluation in the ED. No fevers, SOB, CP, abdominal pain, constipation, or urinary symptoms. Patient has been taking ibuprofen and tylenol which may be masking a fever. XR ordered to eval location of stone in comparison to CT A&P. Pain control achieved with toradol and morphine. Zofran for antinausea medication. UA ?infectious with blood, WBC, leukocyte esterase. Upon my interview patient with good pain control and no nausea. Admission Exam Per Admitting Provider 38 y/o female presents to the ED with worsening left flank pain. Patient was diagnosed with an 8 mm kidney stone 3 and sent home with Flomax and conservative management. Stone has not passed and symptoms have worsened. Nausea, vomiting, and chills started 10/23 prompting re-evaluation in the ED. No fevers, SOB, CP, abdominal pain, constipation, or urinary symptoms. Patient has been taking ibuprofen and tylenol which may be masking a fever. XR ordered to eval location of stone in comparison to CT A&P. Pain control achieved with toradol and morphine. Zofran for antinausea medication. UA ?infectious with blood, WBC, leukocyte esterase. Upon my interview patient with good pain control and no nausea. Principal Diagnosis L ureteral stone Discharge Exam Constitutional: well-appearing, no acute distress HEENT: NCAT, no conjunctival injection CV: regular rhythm, no murmur appreciated, extremities well-perfused, no LE edema Resp: CTABL, no wheezes/rales/rhonchi appreciated, no increased work of breathing MSK: no gross deformities appreciated, +flank pain Skin: warm, dry, no rash appreciated Neuro: alert, oriented, no focal neurologic deficit appreciated Discharge Data Allergies Allergy/AdvReac Type Severity Reaction Status Date / Time bee venom protein (honey bee) Allergy Severe bee stings Verified 10/24/23 23:18 - localized swelling, trouble breathing with sumatriptan Allergy Severe SHORTNESS Verified 10/24/23 23:18 OF BREATH cat dander Allergy Intermediate sneezing, Verified 10/24/23 23:18 itchy eyes promethazine Allergy Intermediate Rash Verified 10/24/23 23:18 tramadol Allergy Intermediate Hives Verified 10/24/23 23:18 Consultations 10/25/23 00:52 ED Decision to Admit Stat 10/25/23 03:23 Consult Urology Routine Procedures Performed Operation Date: 10/26/23 07:00 Actual Procedures p Cystoscopy, left retrograde pyelogram with stent placement, ureteorscopy, laser lithotripsy and extraction of stone, ureteral dialation(Left) - Milind Mejia DO Ordered Studies 10/26/23 14:30 FL retrograde includes kub Routine Hospital Course (1) Nephrolithiasis: Patient seen by outpatient provider 10/18 - CT A&P with 8 mm proximal kidney stone. Symptoms worsened despite conservative management with Flomax prompting evaluation. Patient may require urologic intervention - appreciate urology input. UA suspicious for infection. KUB pending. Urine culture pending. Start empiric abx CTX. f/u urine culture; pending Urology consulted; NPO at midnight, observe today for passage, may need surg intervention but will revisit that tomorrow Ceftriaxone for abx - started 10/24; stop at dc Continue Flomax Pain control - Toradol 15 mg Q6H PRN, morphine 2 mg Q3H and 4 mg Q4H PRN per pain scale while inpatient Oxycodone 5mg q6h at discharge S/p OR ureteroscopy, stent placement, lithotripsy, stone removal (2) Diabetes: Patient on metformin 500 mg BID. Last HbA1c 8.2 10/19/2023. Patient now with formal diagnosis of diabetes. Per [facility] records she was recently started on Mounjaro. Hold home meds and utilize SSI while inpatient. Hold off on basal dosing as patient is insulin naive. Resume home meds at dc (3) Severe obstructive sleep apnea: Patient using CPAP for 3-4 hours nightly. CPAP QHS as tolerated while inpatient. (4) Migraines: Continue home meds - nortriptyline, rimegepant, acetazolamide (5) SVT (supraventricular tachycardia): Patient on metoprolol tartrate 50 mg BID for sinus tachycardia. Continue while inpatient. (6) Edema: Patient on Lasix outpatient for BLE edema. Continue while inpatient. (7) Leukocytosis: Plan DVT ppx: SCDs, low risk Total Time Total Time Spent Total Time Spent (In Minutes): I spent 30 minutes seeing the patient, reviewing consultation, placing prescription for controlled substance, and documenting. Discharge Plan Discharge Items Patient Disposition: Home - Self-Care Reason For Visit: KIDNEY STONE Discharge Diagnosis: Nephrolithiasis (kidney stone) Activity: Resume your previous activity Non-emergency contact: Primary Care Provider and Urologist Call non-emergency contact if: you have any medication questions, your symptoms worsen, your pain is not controlled, your pain is worsening and your temperature is above 101.5 Follow-up/Referrals: Milind Mejia DO [Physician] - Chela Molina MD [Primary Care Provider] - Diet: Regular Addtl Attending Provider Instructions: You were admitted for having nephrolithiasis (a kidney stone). You were treated with IV fluids to keep hydrated and IV pain and nausea medications to manage your symptoms. You were taken to the operating room by urology where they were able to place a stent and remove the stone. You will be contacted by urology to arrange a follow up appointment. Medications: Your medication list has been reviewed and reconciled upon discharge to ensure accuracy and continuity of care. An updated list of all your medications is included with your hospital discharge paperwork. Please review this list closely, and make note of any changes. We sent a new medication called oxycodone 5mg to your pharmacy. Take oxycodone (5mg) one tablet every 6 hours as needed. Take your medications as instructed; do not skip a dose of your medicines. Make sure all of your doctors know every medicine you are taking (including [id number] medicines, vitamins, and supplements). Call your primary care provider before taking any new medicines (including over- the-counter medicines, vitamins, and supplements), because some of these may interact with your current medications, or may make your symptoms worse. Tell your primary care provider if you cannot afford your medications. Activity: You can do normal everyday activities as your body allows. Take rest breaks if you feel tired. Do not overexert. Stop activity if you have pain, shortness of breath or feel dizzy. Follow-up appointments: Make an appointment with your primary care physician within one week of discharge. A copy of this summary will be sent to them. Every time you see your primary care physician, or any other doctor, bring your medication list, and a list of questions. CONTACT YOUR PRIMARY CARE PROVIDER if you experience any of the following: Shortness of breath or difficulty breathing Swelling of your feet, ankles, hands or abdomen Feeling tired with normal activity or experiencing dizziness or fainting Difficulty following your treatment plan, or difficulty taking medications CALL 911 OR GO TO THE EMERGENCY DEPARTMENT if you experience any of the following: Severe abdominal pain or nausea/vomiting Severe chest pain, or chest pain that radiates (moves) to your jaw or arm Sudden, severe shortness of breath or difficulty breathing Thank you for allowing us to participate in your care. Addtl Educational Psychology Teacher Provider Instructions: The Urology office will contact you to arrange a follow-up visit. Please call the urology office at [phone] with any questions, concerns or need to reschedule appointments for any reason. We are happy to assist you. While you have a ureteral stent in place: Some discomfort is normal. Certain movements may trigger pain or a feeling that you need to urinate. You may also feel mild soreness or pressure before or during urination. These symptoms should go away a few days after the stent is removed. Your urine may be slightly pink or red. This is due to bleeding caused by minor irritation from the stent. This may happen on and off while you have the stent, it is not harmful and is to be expected. Medication to help minimize discomfort or bladder spasms, or to prevent infection may be prescribed. Take this as directed. Drink plenty of fluids to help flush out your urinary tract. When to call [facility] at [phone]: Your urine contains heavy blood clots or you are unable to urinate You are constantly leaking urine Fever of 101F or higher, chills, nausea, or vomiting Your pain is not relieved with medication The end of the stent comes out of your urethra Pending Studies at Discharge: No Stand-Alone Forms: [employer] Medications and DC Order Prescriptions: New oxycodone 5 mg tablet 5 mg PO Q6H PRN (Reason: pain) Qty: 12 0RF Continued acetazolamide 250 mg tablet 250 mg PO TID Qty: 90 6RF Nurtec ODT 75 mg tablet,disintegrating 75 mg PO DAILY PRN (Reason: migraine headache) Qty: 8 5RF Rx Instructions: 75mg po once a day prn acute migraine epinephrine 0.3 mg/0.3 mL auto-injector 0.3 mg IM Q10M PRN (Reason: allergies) metoprolol tartrate 50 mg tablet 50 mg PO BID cyclobenzaprine 10 mg tablet 10 mg PO TID PRN (Reason: MUSCLE SPASMS) Rx Instructions: PER PT "USUALLY TAKE 10 MG AT HS EVERY NIGHT". metformin 500 mg tablet 500 mg PO BID acetaminophen [Tylenol Extra Strength] 500 mg Tablet 1,000 mg PO DIRECTED PRN (Reason: Pain) tamsulosin 0.4 mg capsule 0.4 mg PO DAILY ibuprofen 200 mg Tablet 600 - 800 mg PO DIRECTED PRN (Reason: Pain) furosemide 20 mg tablet 20 mg PO QAM nortriptyline 25 mg capsule 25 mg PO HS Rx Instructions: 2-3 hours before bedtime Discharge Orders: Discharge Order (Routine); Ordered 10/27/23 Ordered By: Dillon Matthews Admission Data Admit Date/Time: 10/25/23 01:32 Attending Provider: Cory Loya Admit Provider: Yesenia Ho Primary Care Provider: Chela Molina Other Providers: Jaja Kang; Milind Mejia Supervising Physician Co-Signing Physician Notes ATTESTATION I also saw the patient and confirmed velazquez portions of the history and exam. I agree with the impression and plan in the resident documentation, and as summarized below. Feels a little tired this morning is still little sore, but overall doing better. Tolerating p.o. without difficulty. EXAM 123/79, 105, 20, 36.6, 93% on room air Awake and alert. No acute distress. Heart regular Respiration nonlabored DATA Labs White blood cell count 6.75, hemoglobin 12.2. BUN 21, creatinine 1.17 Micro Urine culture dated 10/24/2023 shows more than 3 times organisms IMPRESSION & PLAN POD #1 s/p Cystoscopy, Left Retrograde Pyelogram with Stent Placement, Ureteroscopy, Laser Lithotripsy and extraction of stone, ureteral dilation Remains afebrile; discharged today Outpatient follow-up with urology Oxycodone 5 mg p.o. every 6 hours as needed pain, #12/no refills Discussed signs and symptoms which to monitor which would necessitate return to the hospital. Additional per resident documentationl
[2023-10-27] MEDS: oxyCODONE HCL IR 5 MG TAB (IMMEDIATE RELEASE) PO STA (12:25)
== END 2023-10-27 13:18 | disposition home or self-care (01) | DRG 660 ==
LOC: ED 21:32 → 3N 10-25 01:32 → SUATTDRO 10-25 01:32 → 3N 10-25 02:35

== ENCOUNTER 2024-05-24 03:07 | Observation (INO) ==
[2024-05-24 03:40] LABS: iSTAT Creatinine 0.7 mg/dl (0.6-1.3); iSTAT Hemoglobin 15.6 g/dl (12.0-16.0); iSTAT Ionized Calcium 1.11 mmol/l (1.12-1.32); iSTAT Potassium 3.8 mmol/L (3.3-5.0)
[2024-05-24] MEDS: OPTIRAY 320 125ml IV ONE (03:45)
[2024-05-24 03:47] LABS: Basophils # (auto) 0.05 K/uL (0.00-0.20); Basophils % (auto) 0.6 %; Eosinophils # (auto) 0.25 K/uL (0.00-0.50); Eosinophils % (auto) 3.1 %; Hematocrit (blood only) 44.1 % (37.0-47.0); Hemoglobin 14.6 g/dl (12.0-16.0); Immature Granulocytes # (auto) 0.02 K/uL (0.01-0.20); Immature Granulocytes % (auto) 0.2 %; Lymphocytes # (auto) 1.97 K/uL (1.20-3.40); Lymphocytes % (auto) 24.4 %; Mean Corpuscular Hgb Conc 33.1 g/dL (32.0-36.0); Mean Corpuscular Volume 87.7 fL (80.0-100.0); Mean Platelet Volume 10.5 fL (9.4-12.4); Monocytes % (auto) 7.4 %; Neutrophils # (auto) 5.19 K/uL (1.40-6.50); Neutrophils % (auto) 64.3 %; Platelet Count 265 K/uL (130-400); RDW Coefficient of Variation 14.4 % (11.5-14.5); Red Blood Count 5.03 M/uL (4.20-5.40); White Blood Count 8.08 K/ul (4.8-10.8)
[2024-05-24] MEDS: FUROSEMIDE 40 MG/4 ML VIAL IV ONE ×2 (03:50→12:18)
--- NOTE | 2024-05-24 03:50 | Emergency Department Note ---
History of Present Illness General Chief complaint: Shortness of Breath/Dyspnea Stated complaint: SHORTNESS OF BREATH,ANKLES SWELLING,CHEST PRESSURE Time Seen by Provider: 05/24/24 03:14 History of Present Illness Maximum Pain Intensity: 3 This 39-year-old female with no prior cardiac disease or heart failure presents the ER, no chest pain, dyspnea and increasing leg pain and swelling. Patient was concerned and came in. Symptoms were worse with laying down and she could not sleep so she came in. Patient denies fever, chills, cough, congestion, flulike illness. Home Medications Medication Instructions Recorded Confirmed Type epinephrine 0.3 mg/0.3 mL 0.3 mg IM Q10M PRN allergies 06/27/19 05/24/24 History injection, auto-injector cyclobenzaprine 10 mg tablet 10 mg PO TID PRN MUSCLE SPASMS 05/05/22 05/24/24 History metoprolol tartrate 50 mg tablet 50 mg PO BID 05/05/22 05/24/24 History metformin 500 mg tablet 500 mg PO BID 04/05/23 05/24/24 History rimegepant 75 mg disintegrating 75 mg PO DAILY PRN migraine 06/04/23 05/24/24 Rx tablet (Nurtec ODT) headache #8 tabs acetaminophen 500 mg tablet 1,000 mg PO DIRECTED PRN Pain 10/24/23 05/24/24 History (Tylenol Extra Strength) furosemide 20 mg tablet 20 mg PO QAM 10/24/23 05/24/24 History ibuprofen 200 mg tablet 600 - 800 mg PO DIRECTED PRN 10/24/23 05/24/24 History Pain acetazolamide 250 mg tablet 50 mg PO 1XD 05/24/24 05/24/24 History semaglutide 1 mg/dose (4 mg/3 mL) 1 mg subcut WK 05/24/24 05/24/24 History subcutaneous pen injector (Ozempic) Allergies Allergy/AdvReac Type Severity Reaction Status Date / Time bee venom protein (honey bee) Allergy Severe bee stings Verified 10/24/23 23:18 - localized swelling, trouble breathing with sumatriptan Allergy Severe SHORTNESS Verified 10/24/23 23:18 OF BREATH cat dander Allergy Intermediate sneezing, Verified 10/24/23 23:18 itchy eyes promethazine Allergy Intermediate Rash Verified 10/24/23 23:18 Past Med/Surg History Problem List (Updated 05/24/24 @ 04:24 by Renee Guerrero PA-C) Acute dyspnea (Acute) Chest pain (Acute) Hydronephrosis Edema Nausea (Acute) Vomiting (Acute) Kidney stone (Acute ~10/27/23) Renal colic on left side (Acute) Diabetes Leukocytosis Nephrolithiasis Migraines neurologic symptoms with per pt: difficulty speaking at times and left arm/left side goes numb; menstrual cycle, average of once/month; denies change or worsening in nature or severity Morbid obesity Nocturnal hypoxemia Severe obstructive sleep apnea Seizure-like activity Cerebellar disease (Acute) Cerebellar disease (Chronic) SVT (supraventricular tachycardia) (Acute 08/29/13) Hx of migraines (Chronic) Acquired deviated nasal septum Tonsillar hypertrophy Chiari malformation pt denies correction, last saw OR neuro 2014 Encounter for pre-operative examination Headache Vision changes Acute cholecystitis due to biliary calculus (Acute) Medical History Left ureteral stone History of anesthesia reaction Heartburn Migraines Sleep apnea Sinus tachycardia Pre-diabetes Chiari malformation Cerebellar disease Surgical History Hx of cholecystectomy History of tooth extraction History of delivery Family History Father Hypertension Stroke Mother Environmental allergies Hypertension Aunt Breast cancer Grandfather (Maternal) Stomach cancer Heart disease Grandfather (Paternal) Family history of colon cancer Stomach cancer Heart disease Grandmother (Maternal) Stomach cancer Family history of diabetes mellitus Heart disease Asthma Grandmother (Paternal) Stomach cancer Heart disease Uncle No problems noted. Aunt No problems noted. Aunt Asthma Uncle Asthma Other No family history of adverse response to anesthesia No family history of bleeding disorder Social History Smoking Status: Never smoker Second Hand Exposure: No; Do You Dip or Chew Tobacco: No; Hx Alcohol Use: No Hx Substance Use: No Preferred Language: Divehi Communication Ability: Effective [employer] Required: No Beliefs That Will Affect Care: None marital status: Single Current Living Situation: Other Current Living Situation Comment: lives with boyfriend current occupational status: employed current occupation: Healthcare-Clerical Feels Safe at Home: Yes Assistive Devices: None Review of Systems A total of 10 systems reviewed and were otherwise negative Physical Exam Vital Signs Vital Signs - 24 hr 05/24/24 03:08 05/24/24 03:11 05/24/24 03:15 Temperature 36.6 C Temperature Source Temporal Artery Scan Pulse Rate 105 H 107 H Pulse Rate [Apical] Pulse Rhythm Regular Pulse Rhythm [Apical] Pulse Strength [Apical] Respiratory Rate 20 20 Respiratory Effort / Characteristics Non-Labored Respiratory Depth Normal Respiratory Pattern Blood Pressure 193/98 H Blood Pressure [Left Arm] Blood Pressure Mean 129 Blood Pressure Mean [Left Arm] Blood Pressure Position [Left Arm] Pulse Oximetry 99 99 95 Oxygen Delivery Method Room Air Room Air Room Air Sepsis Recent Fever Within 48 Hours No Sepsis New/Unexplained Change in Mental Status No Sepsis Action Taken by Nursing No Action Required 05/24/24 03:23 05/24/24 04:35 Temperature Temperature Source Pulse Rate 109 H Pulse Rate [Apical] 95 H Pulse Rhythm Pulse Rhythm [Apical] Regular Pulse Strength [Apical] Normal Respiratory Rate 24 Respiratory Effort / Characteristics Non-Labored Spontaneous Respiratory Depth Normal Respiratory Pattern Regular Blood Pressure Blood Pressure [Left Arm] 149/93 H Blood Pressure Mean Blood Pressure Mean [Left Arm] 111 Blood Pressure Position [Left Arm] Lying Pulse Oximetry 96 Oxygen Delivery Method Room Air Sepsis Recent Fever Within 48 Hours Sepsis New/Unexplained Change in Mental Status Sepsis Action Taken by Nursing VITALS: Vitals are noted on the nurse's note and reviewed by myself. Vital signs stable. GENERAL: Pleasant female, in no acute distress, nondiaphoretic, well-developed well-nourished. SKIN: Capillary reflex less than 2 seconds. HEENT: Normocephalic. PERRLA. EOMI. Nares patent. Mucous membranes moist. Neck is supple without nuchal rigidity. HEART: Regular rate and rhythm LUNGS: Clear to auscultation bilaterally without wheezes, rales or rhonchi. No retractions or accessory muscle use. ABDOMEN: Positive bowel sounds x 4. Normal tympanic percussion. Soft, nontender, without masses or organomegaly. French sign negative. No guarding or rebound tenderness. no CVA tenderness MUSCULOSKELETAL: No gross musculoskeletal defects. +1 pitting edema to the mid tib-fib bilaterally. NEURO: Patient was alert and oriented to person place and time. No focal neurological deficits. Course Administered Medications Discontinued Medications Furosemide (Furosemide 40 Mg/4 Ml Vial) 40 mg IV ONE ONE Stop: 05/24/24 03:32 Last Admin: 05/24/24 03:50 Dose: 40 mg Documented By: LEDY Ioversol (Optiray 320 125ml) 125 ml IV ONCE ONE Stop: 05/24/24 03:46 Last Admin: 05/24/24 03:45 Dose: 118 ml Documented By: PREM Medical Decision Making Medical Records Attestation: I reviewed the patient's medical records. Home Medications Current Medication List: was personally reviewed by me Laboratory Data Attestation: I reviewed the patient's lab results. 05/24/24 03:25 05/24/24 03:25 Lab Results 05/24/24 05/24/24 Range/Units 03:25 03:27 WBC 8.08 (4.8-10.8) K/ul RBC 5.03 (4.20-5.40) M/uL Hgb 14.6 (12.0-16.0) g/dl POC Hgb 15.6 (12.0-16.0) g/dl Hct 44.1 (37.0-47.0) % POC Hct 46 (37-47) % MCV 87.7 (80.0-100.0) fL MCH 29.0 (25.0-34.0) pg MCHC 33.1 (32.0-36.0) g/dL RDW Std Deviation 46.0 (36.4-46.3) fL RDW Coeff of Dayana 14.4 (11.5-14.5) % Plt Count 265 (130-400) K/uL MPV 10.5 (9.4-12.4) fL Immature Gran % (Auto) 0.2 % Neut % (Auto) 64.3 % Lymph % (Auto) 24.4 % [place] % (Auto) 7.4 % Eos % (Auto) 3.1 % Baso % (Auto) 0.6 % Neut # (Auto) 5.19 (1.40-6.50) K/uL Lymph # (Auto) 1.97 (1.20-3.40) K/uL [place] # (Auto) 0.60 H (0.11-0.59) K/uL Eos # (Auto) 0.25 (0.00-0.50) K/uL Baso # (Auto) 0.05 (0.00-0.20) K/uL Immature Gran # (Auto) 0.02 (0.01-0.20) K/uL POC Sodium 135 (135-144) mmol/L Sodium 135 L (136-145) mmol/L POC Potassium 3.8 (3.3-5.0) mmol/L Potassium 3.7 (3.5-5.1) mmol/L POC Chloride 95 L (101-112) mmol/L Chloride 97 L (98-107) mmol/L Carbon Dioxide 30 (21-32) mmol/L POC Total CO2 30 (24-31) mmol/L Anion Gap 8 (3-11) POC Anion Gap 16.0 (16-25) mmol/L POC BUN 13 (7-18) mg/dl BUN 12 (6-23) mg/dl Creatinine 0.71 (0.6-1.2) mg/dl POC Creatinine 0.7 (0.6-1.3) mg/dl Est Cr Clr Drug Dosing 139.3 ml/min eGFR 109.48 BUN/Creatinine Ratio 16.9 (10-20) Glucose 226 H (70-99(Fasting)) mg/dl POC Glucose (other) 234 H (70-99) mg/dl Calcium 8.9 (8.6-10.3) mg/dl POC Ioniz Calcium Trino 1.11 L (1.12-1.32) mmol/l Total Bilirubin 0.5 (0.2-1.0) mg/dl AST 24 (13-39) U/L ALT 43 (7-52) U/L Alkaline Phosphatase 66 (34-104) U/L Troponin I High Sens 4.7 (0-14) pg/ml B-Natriuretic Peptide 80 (0-100) pg/ml Total Protein 7.1 (6.0-8.3) gm/dl Albumin 4.2 (3.4-5.0) gm/dl Globulin 2.9 (2.5-4.0) gm/dl Albumin/Globulin Ratio 1.4 (0.9-2) Lipase 31 (11-82) U/L TSH 4.177 (0.300-4.500) uIu/ml HCG, Qual Negative (Negative) Imaging Data Attestation: I personally reviewed and interpreted this imaging study as follows: Radiologist's Impression: Chest CTA 05/24/24 03:31 Exam(s): CTA CHEST IV Amt: 118 ml optiray 320 EXAM: CT Angiography Chest With Intravenous Contrast CLINICAL HISTORY: Reason for exam: PE. TECHNIQUE: Axial computed tomographic angiography images of the chest with intravenous contrast. CTDI is 28.14 mGy and DLP is 732.91 mGy-cm. Automated exposure control was utilized for the study. A dose lowering technique was utilized adhering to the principles of ALARA. MIP reconstructed images were created and reviewed. COMPARISON: No relevant prior studies available. FINDINGS: Pulmonary arteries: No pulmonary embolism detected. Aorta: No acute findings. No thoracic aortic aneurysm. Lungs: Diffuse ground-glass opacification within the lungs which may be due to phase of expiration. Pleural space: Unremarkable. No significant effusion. No pneumothorax. Heart: Cardiomegaly. No significant pericardial effusion. No evidence of RV dysfunction. Bones/joints: Degenerative changes in the spine. No acute fracture. No dislocation. Soft tissues: Unremarkable. Lymph nodes: Unremarkable. No enlarged lymph nodes. IMPRESSION: 1. No pulmonary embolism detected. 2. Diffuse ground-glass opacification within the lungs which may be due to phase of expiration. Electronically signed by: Mikey Castle MD 05/24/24 04:08 AM [facility] Narrative Prior records/ancillary studies reviewed. Triage Nursing notes reviewed. Additional history obtained from nursing. The patient's history was concerning for chest pain and dyspnea. Differential diagnosis: Etiologies such as cardiac ischemia, aortic dissection, pulmonary embolism, pneumonia, pneumothorax, musculoskeletal, infections, pericarditis, myocarditis, esophageal rupture, gastrointestinal, as well as others were entertained. Physical examination: As above. ER treatment provided: An order was placed for continuous cardiac monitoring. The monitor shows a rate of 60-100 with a sinus rhythm per my interpretation. Lasix was ordered On reassessment the patient felt better. Diagnostic interpretation by me: The electrocardiogram was negative for pathologic change. Ordered for chest pain EKG: Normal sinus, normal intervals, no acute ST-T wave changes, rate of 110. Impression sinus tachycardia independently interpreted by myself I think arrhythmia is unlikely. EKG shows normal sinus rhythm with no interval abnormalities such as QT prolongation or WPW. There are no findings to suggest Brugada syndrome. Cardiac monitoring in the emergency department reveals no tachycardic or bradycardic dysrhythmia. Hypertrophic cardiomyopathy was considered but there are no clear historical elements pointing toward this. EKG is not suggestive. The QRS voltage is not extremely large and there are no suggestive Q waves. The labs Independently Interpreted by myself revealed Negative troponin. Stable H&H, mild hyperglycemia that DKA Imaging studies: CT was reviewed and read by radiology as above HEART SCORE: Hx: high/mod/low suspicion: 0 ECG: ST depression/nonspecific changes/normal: 0 Age: Greater than 65/45-64/less than 45: 0 Risk factors: (Hypertension, hyperlipidemia, diabetes, coronary disease, tobacco use, cocaine use): 1 Troponin: Greater than 2 times normal limits/1-2 times normal limits/normal: 0 Total: 1 Consultation: A consultation was placed with the hospitalist. The case was discussed and diagnostics were reviewed. The patient was evaluated in the ER for further treatment. Exam and history seem consistent with chest pain and shortness of breath with increasing fluid retention. Patient was still short of breath after Lasix but did feel better. She still cannot lie flat. She was still extremely winded with little activity. I am concerned that she has extra fluid on board. Medicine was consulted case discussed. She will be evaluated for possible admission. By the evaluation outlined above emergent etiologies such as aortic dissection, pulmonary embolism, pneumonia, pneumothorax, pericarditis, myocarditis, gastrointestinal, as well as others were deemed relatively unlikely. The pt informed about the findings as listed above. All questions were answered and pleased with the treatment. The chart was completed utilizing [employer] Speech voice recognition software. Grammatical errors, random word insertions, pronoun errors, and incomplete sentences are an occassional consequence of this system due to software limitations, ambient noise, and hardware issues. Any formal questions or concerns about the content, text, or information contained within the body of this dictation should be directly addressed to the physician lpn or medical assistant for clarification. Impression & Plan Chest pain, Acute dyspnea Discharge Plan Visit Data Chief Complaint: Shortness of Breath/Dyspnea Stated Complaint: SHORTNESS OF BREATH,ANKLES SWELLING,CHEST PRESSURE ED Provider: Gillian Fritz ED Midlevel Provider: Renee Guerrero Discharge Problem: Chest pain, Acute dyspnea Patient Disposition: Being Evaluated by Hospitalist Condition: Good Forms Stand Alone Forms: My [facility] Prescriptions Prescriptions: No Action Nurtec ODT 75 mg tablet,disintegrating 75 mg PO DAILY PRN (Reason: migraine headache) Qty: 8 5RF Rx Instructions: 75mg po once a day prn acute migraine epinephrine 0.3 mg/0.3 mL auto-injector 0.3 mg IM Q10M PRN (Reason: allergies) metoprolol tartrate 50 mg tablet 50 mg PO BID cyclobenzaprine 10 mg tablet 10 mg PO TID PRN (Reason: MUSCLE SPASMS) Rx Instructions: PER PT "USUALLY TAKE 10 MG AT HS EVERY NIGHT". metformin 500 mg tablet 500 mg PO BID acetaminophen [Tylenol Extra Strength] 500 mg Tablet 1,000 mg PO DIRECTED PRN (Reason: Pain) ibuprofen 200 mg Tablet 600 - 800 mg PO DIRECTED PRN (Reason: Pain) furosemide 20 mg tablet 20 mg PO QAM Ozempic 1 mg/dose (4 mg/3 mL) pen injector 1 mg SUBCUT WK acetazolamide 250 mg tablet 50 mg PO 1XD Referrals Referrals: Chela Molina MD [Primary Care Provider] - Discharge Problem: Chest pain Qualifiers: Chest pain type: unspecified Qualified Code(s): R07.9 - Chest pain, unspecified
[2024-05-24 03:58] LABS: Pregnancy Test, Serum Negative (Negative)
[2024-05-24 04:01] LABS: Albumin Globulin Ratio 1.4 (0.9-2); Albumin Level 4.2 gm/dl (3.4-5.0); BUN Creatinine Ratio 16.9 (10-20); Bilirubin,Total 0.5 mg/dl (0.2-1.0); Calcium 8.9 mg/dl (8.6-10.3); Creatinine Clr Calc Pharmacy 139.3 ml/min; Globulin 2.9 gm/dl (2.5-4.0); Potassium 3.7 mmol/L (3.5-5.1); Total Protein 7.1 gm/dl (6.0-8.3)
[2024-05-24 04:06] LABS: Troponin I High Sensitivity 4.7 pg/ml (0-14)
--- NOTE | 2024-05-24 04:09 | CT Scan Report ---
Exam(s): CTA CHEST IV Amt: 118 ml optiray 320 EXAM: CT Angiography Chest With Intravenous Contrast CLINICAL HISTORY: Reason for exam: PE. TECHNIQUE: Axial computed tomographic angiography images of the chest with intravenous contrast. CTDI is 28.14 mGy and DLP is 732.91 mGy-cm. Automated exposure control was utilized for the study. A dose lowering technique was utilized adhering to the principles of ALARA. MIP reconstructed images were created and reviewed. COMPARISON: No relevant prior studies available. FINDINGS: Pulmonary arteries: No pulmonary embolism detected. Aorta: No acute findings. No thoracic aortic aneurysm. Lungs: Diffuse ground-glass opacification within the lungs which may be due to phase of expiration. Pleural space: Unremarkable. No significant effusion. No pneumothorax. Heart: Cardiomegaly. No significant pericardial effusion. No evidence of RV dysfunction. Bones/joints: Degenerative changes in the spine. No acute fracture. No dislocation. Soft tissues: Unremarkable. Lymph nodes: Unremarkable. No enlarged lymph nodes. IMPRESSION: 1. No pulmonary embolism detected. 2. Diffuse ground-glass opacification within the lungs which may be due to phase of expiration. Electronically signed by: Mikey Castle MD 05/24/24 04:08 AM
[2024-05-24 04:15] LABS: Thyroid Stimulating Hormone 4.177 uIu/ml (0.300-4.500)
--- NOTE | 2024-05-24 04:37 | History & Physical Report ---
Date of Service May 24, 2024 Assessment & Plan (1) Acute dyspnea: (2) Migraines: (3) Nocturnal hypoxemia: (4) Severe obstructive sleep apnea: (5) SVT (supraventricular tachycardia): (6) Diabetes: Plan Dyspnea | LE Swelling -Received Lasix 40 in ED, monitor response. BNP 80 -Will order echo, LE venous duplex (left leg) due to swelling and pain with palpation -CTA showed no PE, possible ?"diffuse ground-glass opacification" although possibly due to expiration during imaging -Respiratory biofire negative Severe ISH -Encourage CPAP use Migraine Headaches | Chiari Zero Malformation -Follows with [facility] Neurology -Continue home meds: rimegepant, acetazolamide Type 2 Diabetes Mellitus -Patient on Metformin 500mg BID, will hold -Monitor BSG ACHS, will add correction factor only to start SVT -Continue metoprolol tartrate 50mg BID for tachycardia -Monitor on telemetry Admit to: Med/tele Diet: carb consistent VTE Prophylaxis: Lovenox Code Status: Full Code History of Present Illness Chief Complaint: edema, Orthopnea Primary Care Provider: Chela Molina MD Marlin is a 39 year-old female who presented to the ED due to worsening shortness of breath. Her medical history is significant for Chiari zero malformation, migraine headaches, severe ISH, SVT, lower extremity edema, type 2 diabetes mellitus. She endorses progressive worsening shortness of breath and leg swelling over 6 months, however significantly worse in the past 3 days. Had outpatient echo and LE venous duplex ordered for end of the month, but due to her worsening symptoms she presented to the ED for evaluation. Endorses some chest pressure and dyspnea when laying flat, previously managed by stacking pillows however that is no longer helping. States she has severe sleep apnea but has been unable to tolerate CPAP and was previously told her BMI was too high for the inspire device. Has been taking Lasix 20mg as needed for lower extremity swelling at home without much improvement, also has worn compression stockings which helps some. ED Course: -CBC, CMP, BNP -Respiratory biofire -CTA chest Allergies Allergy/AdvReac Type Severity Reaction Status Date / Time bee venom protein (honey bee) Allergy Severe bee stings Verified 10/24/23 23:18 - localized swelling, trouble breathing with sumatriptan Allergy Severe SHORTNESS Verified 10/24/23 23:18 OF BREATH cat dander Allergy Intermediate sneezing, Verified 10/24/23 23:18 itchy eyes promethazine Allergy Intermediate Rash Verified 10/24/23 23:18 Home Medications Medication Instructions Recorded Confirmed Type epinephrine 0.3 mg/0.3 mL 0.3 mg IM Q10M PRN allergies 06/27/19 05/24/24 History injection, auto-injector cyclobenzaprine 10 mg tablet 10 mg PO TID PRN MUSCLE SPASMS 05/05/22 05/24/24 History metoprolol tartrate 50 mg tablet 50 mg PO BID 05/05/22 05/24/24 History metformin 500 mg tablet 500 mg PO BID 04/05/23 05/24/24 History rimegepant 75 mg disintegrating 75 mg PO DAILY PRN migraine 06/04/23 05/24/24 Rx tablet (Nurtec ODT) headache #8 tabs acetaminophen 500 mg tablet 1,000 mg PO DIRECTED PRN Pain 10/24/23 05/24/24 History (Tylenol Extra Strength) furosemide 20 mg tablet 20 mg PO QAM 10/24/23 05/24/24 History ibuprofen 200 mg tablet 600 - 800 mg PO DIRECTED PRN 10/24/23 05/24/24 History Pain acetazolamide 250 mg tablet 50 mg PO 1XD 05/24/24 05/24/24 History semaglutide 1 mg/dose (4 mg/3 mL) 1 mg subcut WK 05/24/24 05/24/24 History subcutaneous pen injector (Ozempic) Past Med/Surg History Problem List (Updated 05/24/24 @ 04:24 by Renee Guerrero PA-C) Acute dyspnea (Acute) Chest pain (Acute) Hydronephrosis Edema Nausea (Acute) Vomiting (Acute) Kidney stone (Acute ~10/27/23) Renal colic on left side (Acute) Diabetes Leukocytosis Nephrolithiasis Migraines neurologic symptoms with per pt: difficulty speaking at times and left arm/left side goes numb; menstrual cycle, average of once/month; denies change or worsening in nature or severity Morbid obesity Nocturnal hypoxemia Severe obstructive sleep apnea Seizure-like activity Cerebellar disease (Acute) Cerebellar disease (Chronic) SVT (supraventricular tachycardia) (Acute 08/29/13) Hx of migraines (Chronic) Acquired deviated nasal septum Tonsillar hypertrophy Chiari malformation pt denies correction, last saw [place] [facility] 2015 Encounter for pre-operative examination Headache Vision changes Acute cholecystitis due to biliary calculus (Acute) Medical History Left ureteral stone History of anesthesia reaction Heartburn Migraines Sleep apnea Sinus tachycardia Pre-diabetes Chiari malformation Cerebellar disease Surgical History Hx of cholecystectomy History of tooth extraction History of delivery Family History Father Hypertension Stroke Mother Environmental allergies Hypertension Aunt Breast cancer Grandfather (Maternal) Stomach cancer Heart disease Grandfather (Paternal) Family history of colon cancer Stomach cancer Heart disease Grandmother (Maternal) Stomach cancer Family history of diabetes mellitus Heart disease Asthma Grandmother (Paternal) Stomach cancer Heart disease Uncle No problems noted. Aunt No problems noted. Aunt Asthma Uncle Asthma Other No family history of adverse response to anesthesia No family history of bleeding disorder Social History Smoking Status: Never smoker Second Hand Exposure: No; Do You Dip or Chew Tobacco: No; Hx Alcohol Use: No Hx Substance Use: No Preferred Language: Armenian Communication Ability: Effective Loss Control Technician Required: No Beliefs That Will Affect Care: None marital status: Single Current Living Situation: Family Current Living Situation Comment: lives with boyfriend current occupational status: employed current occupation: Healthcare-Clerical Feels Safe at Home: Yes Assistive Devices: None Review of Systems Review of Systems: As per above Physical Exam Constitutional: WD/WN, vitals as above Eyes: + anicteric sclerae; no conjunctival abn ormality ENMT: Ears: no external ear abnormality Nose: no external nose abnormality moist mucous membranes Respiratory: normal respiratory effort, lungs clear to auscultation Cardiovascular: Rate/Rhythm: regular rhythm and + tachycardic +edema of bilateral lower extremities. p ain with palpation of R LE Gastrointestinal (Abdomen): normal bowel sounds, soft, nontender, no hepatosplenomegaly Skin: no rashes, warm and dry Psychiatric: A+Ox3, euthymic affect Results & Data Results & Data Vital Signs (Past 12 Hours) Vital Signs Temp Pulse Pulse Resp BP BP Pulse Ox 05/24/24 04:35 95 H 24 149/93 H 96 05/24/24 03:23 109 H 05/24/24 03:15 107 H 20 95 05/24/24 03:11 36.6 C 105 H 20 193/98 H 99 05/24/24 03:08 99 O2 Del Method 05/24/24 04:35 Room Air 05/24/24 03:23 05/24/24 03:15 Room Air 05/24/24 03:11 Room Air 05/24/24 03:08 Room Air Diagnostic Findings Chest CTA 05/24/24 03:31 Exam(s): CTA CHEST IV Amt: 118 ml optiray 320 EXAM: CT Angiography Chest With Intravenous Contrast CLINICAL HISTORY: Reason for exam: PE. TECHNIQUE: Axial computed tomographic angiography images of the chest with intravenous contrast. CTDI is 28.14 mGy and DLP is 732.91 mGy-cm. Automated exposure control was utilized for the study. A dose lowering technique was utilized adhering to the principles of ALARA. MIP reconstructed images were created and reviewed. COMPARISON: No relevant prior studies available. FINDINGS: Pulmonary arteries: No pulmonary embolism detected. Aorta: No acute findings. No thoracic aortic aneurysm. Lungs: Diffuse ground-glass opacification within the lungs which may be due to phase of expiration. Pleural space: Unremarkable. No significant effusion. No pneumothorax. Heart: Cardiomegaly. No significant pericardial effusion. No evidence of RV dysfunction. Bones/joints: Degenerative changes in the spine. No acute fracture. No dislocation. Soft tissues: Unremarkable. Lymph nodes: Unremarkable. No enlarged lymph nodes. IMPRESSION: 1. No pulmonary embolism detected. 2. Diffuse ground-glass opacification within the lungs which may be due to phase of expiration. Electronically signed by: Mikey Castle MD 05/24/24 04:08 AM Supervising Physician Co-Signing Physician Notes Patient seen and examined, chart reviewed, case discussed with Dr. Toledo and I agree with the assessment and plan as above. In brief, patient is a 39yo female presenting with orthopnea and bilateral LE edema R>L. Patient endorses fluctuating weight at baseline 10-15 pounds, is uncertain if her weight is currently up. On exam she is resting comfortably, NAD, sitting upright in bed Skin - no rash HEENT - MMM ,neck supple Heart - +S1/S2, regular, no m/r/g Lungs - equal breath sounds bilaterally, fine end-enspiratory crackles present in bilateral bases, no rhonchi or wheezes Abd - +BS, soft, NT/ND Ext - warm, well perfused, bilateral LE edema R > L, 1+ pitting Labs and images reviewed Assessment/Plan 39yo female presenting with dyspnea, orthopnea and edema. CTA as above with possible ground glass opacities - ?fluid vs atelectasis. BNP is WNL but can be falsely low in obesity -Check 2D echo and bilateral LE doppler -Monitor response to Lasix and redose as needed - patient reports some minor but immediate improvement in her respiratory status following Lasix administration - ?vasodilatory effect? -Remainder as above Resident Activity Tracking Resident Involvement: Resident Care Provided Care Provided: Adult Hospital Medicine
[2024-05-24 05:14] LABS: Adenovirus PCR Not Detected (NotDetected); Bordetella parapertussis PCR Not Detected (NotDetected); Bordetella pertussis PCR Not Detected (NotDetected); Chlamydia pneumoniae PCR Not Detected (NotDetected); Coronavirus 229E PCR Not Detected (NotDetected); Coronavirus CoV-2 (COVID19)PCR Not Detected (NotDetected); Coronavirus HKU1 PCR Not Detected (NotDetected); Coronavirus NL63 PCR Not Detected (NotDetected); Coronavirus OC43PCR Not Detected (NotDetected); Human Metapneumovirus PCR Not Detected (NotDetected); Influenza A PCR Not Detected (NotDetected); Influenza B PCR Not Detected (NotDetected); Mycoplasma pneumoniae PCR Not Detected (NotDetected); Parainfluenza Virus 1 PCR Not Detected (NotDetected); Parainfluenza Virus 2 PCR Not Detected (NotDetected); Parainfluenza Virus 3 PCR Not Detected (NotDetected); Parainfluenza Virus 4 PCR Not Detected (NotDetected); Respiratory Syncytial VirusPCR Not Detected (NotDetected); Rhinovirus/Enterovirus PCR Not Detected (NotDetected)
[2024-05-24] MEDS: KETOROLAC TROMETHAMINE 15 MG/ML VIAL IV STA ×2 (05:32→11:32)
--- NOTE | 2024-05-24 06:24 | Billing Data ---
Date of Service May 24, 2024 Coding Level of Care Code 81367 INT INP/OBS CARE
[2024-05-24] MEDS ORDERED: POLYETHYLENE (MIRALAX) 17 GM PACK PO PRN (07:09)
[2024-05-24] MEDS ORDERED: GLUCOSE 10 TAB/TUBE PO PRN (07:09)
[2024-05-24] MEDS ORDERED: GLUCAGON FOR INJ 1 MG VIAL SQ PRN (07:09)
[2024-05-24] MEDS ORDERED: ONDANSETRON INJ 2 MG/ML 2 ML VIAL IV PRN (07:09)
[2024-05-24] MEDS ORDERED: GLUCOSE 40% GEL 15 GM TUBE PO PRN (07:09)
[2024-05-24] MEDS ORDERED: DEXTROSE 50% 50 ML SYRINGE IV PRN (07:09)
[2024-05-24] MEDS ORDERED: CARBOHYDRATES FOR HYPOGLYCEMIA PO PRN (07:09)
[2024-05-24] MEDS ORDERED: CYCLOBENZAPRINE HCL 10 MG TAB PO PRN (07:09)
--- NOTE | 2024-05-24 07:39 | Hospitalist Progress Note ---
"Date of Service May 24, 2024 Assessment & Plan (1) Acute dyspnea: (2) Migraines: (3) Nocturnal hypoxemia: (4) Severe obstructive sleep apnea: (5) SVT (supraventricular tachycardia): (6) Diabetes: Plan Dyspnea Possible fluid overload d/t improvement with furosemide, cardiomegaly on CTA [facility] negative, but cannot r/o infectious cause due to symptoms of congestion, rhinorrhea, cough and subjective fever, diaphoresis Echo reveals pulmonary HTN-likely due to untreated severe ISH for 2+ years Keep head elevated Creatinine 0.65. Repeat lasix 4o mg because this provided relief yesterday. L ankle pain Pain due to lower extremity non-pitting edema vs old MSK injury Worse with palpation Doppler r/o DVT Normal clotting parameters + Lovenox prophylaxis Pain management Consider XR to evaluate for old injury accounting for unilateral swelling, increased pain with weight bearing. Consider MRI outpatient? Severe ISH Encourage CPAP use Follow up with Sleep Medicine to obtain new machine and more comfortable fitting mask Jaw Pain Without clicking, not worse with chewing XR maxilofacial Migraine Headaches | Chiari Zero Malformation Headache today-given tordol which provided relief Follows with [facility] Continue home meds: rimegepant, acetazolamide T2DM Continue to monitor BG before meals and at bedtime Currently holding metformin SVT Continue metoprolol tartrate 50mg BID for tachycardia Monitor on telemetry Admit to: Med/tele Diet: carb consistent VTE Prophylaxis: Lovenox Code Status: Full Code Admission and Anticipated Discharge Date Admission Date: May 24, 2024 Supervising Physician Co-Signing Physician Notes Attending Physician Supervision Note: I independently interviewed and examined the patient and verified the velazquez history and physical, reviewed labs and image studies and agree with findings and care plan noted above. Breathing better since last night. No chest pain. ankle/foot pain + vitals noted. comfortable in bed. RRR, no JVD, CTA, leg edema + Acute HFpEF - Echo - Normal EF, RV dilation, RV pressure 30-40. BNP WNL - can be falsely low in obesity -diuresing well. continue lasix. monitor renal function. Severe ISH - will need to rearrange cpap on discharge. SVT - In sinus rhythm. on b cathy. consider event monitor for extended period monitoring as outpatient. Weight management - On GLP1 agonits for DM. No improvement in weight. To further evaluate as outpatient - ? refer to wt management clinic/surgical options. Patricia. Subjective Marlin is a 39F with T2DM, SVT, obesity, ISH and migraine who presents with chest heaviness and SOB associated with laying flat. She also endorses L ankle pain and R jaw pain. Starting yesterday, Marlin had increasing chest heaviness, fatigue and nausea which prompted her to present to the ED. She was treated with furosemide which she states improved her symptoms greatly. She is now able to lay flat which she had not been able to do prior. She also had new jaw pain in ED which was treated with tordol and provided relief. She reports also having blurry vision since reporting to the ED. L ankle pain for the past 6 mo. Denies injury. Worse when she bears weight. Reports swelling in L leg since this time and new onset swelling in R. She wears compression socks which help the swelling somewhat. Marlin has severe ISH diagnosed 03/2022 but does not have a CPAP machine currently or wish to use one. She sleeps 3-5 hours per night at home and reports not sleeping much last night. Review of Systems Review of Systems: As per above Physical Exam Physical Exam: BP 144/91 HR 100 R18 O2 96 T 36.7 BMI 55 Constitutional: WD/WN, vitals as above (A&O x4. In no acute distress. ) Diaphoretic Eyes: + anicteric sclerae; no conjunctival abn ormality PERRLA, EOMI, anicteric sclerae, no conjunctival abnormality ENMT: No lymphadenopathy. Pain to palpation R jaw. No bruising or swelling noted. Respiratory: normal respiratory effort, lungs clear to auscultation Cardiovascular: Rate/Rhythm: regular rhythm and + tachycardic No murmurs, rubs or gallops Gastrointestinal (Abdomen): Normal bowel sounds. Vague tenderness to palpation in RUQ and LUQ. No hepatosplenomegaly noted. Musculoskeletal: L ankle non-pitting edema, tender to palpation. No bruising, rashes or lesions. Skin: no rashes, warm and dry Psychiatric: Normal mood and affect. Pleasant. Results & Data Results & Data Vital Signs (Past 12 Hours) Vital Signs Temp Pulse Pulse Resp BP BP Pulse Ox 05/24/24 06:57 36.7 C 109 H 16 144/91 H 95 05/24/24 06:00 107 H 18 151/88 H 94 05/24/24 04:35 95 H 24 149/93 H 96 05/24/24 03:23 109 H 05/24/24 03:15 107 H 20 95 05/24/24 03:11 36.6 C 105 H 20 193/98 H 99 05/24/24 03:08 99 O2 Del Method 05/24/24 06:57 Room Air 05/24/24 06:00 Room Air 05/24/24 04:35 Room Air 05/24/24 03:23 05/24/24 03:15 Room Air 05/24/24 03:11 Room Air 05/24/24 03:08 Room Air Laboratory Results Viral panel negative Na 135 L Cl 97L Glucose 226 H GFR 109 Createnine 0.65 Troponin 4.5-->3.8 trending down BNP 80 Diagnostic Findings EKG-sinus tach, l ventricular hypertrophy CTA-No signs of PE. Shows diffuse ground glass opacification and cardiomegaly. Venous Doppler L-No sign DVT Echo-L Ventricle EF 65-70. R Ventricle function normal. R ventricle dilated. Pulmonary pressure elevated at 30-40 mmHg. Mild aortic regurgitation. Medications Administered Furosemide 40 mg Tordol 15 mg"
--- NOTE | 2024-05-24 08:04 | Ultrasound Report ---
US venous doppler LE LT CLINICAL HISTORY: lower ext swelling and pain TECHNIQUE: Left lower extremity real-time compression venous ultrasound with Color Doppler imaging. U tilizing real-time ultrasonic imaging multiple real time high-resolution ultrasonic images with compr ession and noncompression maneuvers of the deep venous system in addition to color doppler imaging we re performed from the common femoral vein through the proximal calf veins. COMPARISON: None available at the time of this dictation. FINDINGS/IMPRESSION: No deep venous thrombus, there is normal compressibility of the deep venous system from the common fe moral vein through the proximal calf veins. No superficial venous thrombosis is identified. ACT 112: Negative or not required by law. Electronically signed by: Ezio Helms M.D. 05/24/2024 8:03 AM
--- NOTE | 2024-05-24 08:54 | Electrocardiogram Report ---
Test Reason : Blood Pressure : */* mmHG Vent. Rate : 110 BPM Atrial Rate : 110 BPM P-R Int : 144 ms QRS Dur : 84 ms QT Int : 328 ms P-R-T Axes : 51 49 21 degrees QTcB Int : 443 ms Sinus tachycardia Left atrial enlargement Borderline ECG When compared with ECG of 25-Oct-2023 01:32, No significant change was found Confirmed by Mingo Dasilva ([id number]) on 05/24/2024 8:54:47 AM Referred By: REFERRED SELF Confirmed By: Mingo Dasilva
[2024-05-24] MEDS: INSULIN ASPART PER UNIT CHARGE SC SCH (09:00)
[2024-05-24] MEDS: acetaZOLAMIDE 250 MG TAB PO SCH (09:01)
[2024-05-24] MEDS: METOPROLOL TARTRATE 50 MG TAB PO SCH (09:02)
[2024-05-24] MEDS: ENOXAPARIN INJ 40 MG/0.4 ML SYR SQ SCH (09:02)
[2024-05-24 11:14] LABS: Calcium 8.8 mg/dl (8.6-10.3); Creatinine Clr Calc Pharmacy 157.9 ml/min; Potassium 3.8 mmol/L (3.5-5.1)
--- NOTE | 2024-05-24 11:35 | XCELERA ---
[id number]
[2024-05-24] MEDS: ACETAMINOPHEN 500 MG TAB PO PRN (23:42)
[2024-05-25 05:54] LABS: Basophils # (auto) 0.03 K/uL (0.00-0.20); Basophils % (auto) 0.3 %; Eosinophils # (auto) 0.23 K/uL (0.00-0.50); Eosinophils % (auto) 2.6 %; Hematocrit (blood only) 44.4 % (37.0-47.0); Hemoglobin 14.4 g/dl (12.0-16.0); Immature Granulocytes # (auto) 0.02 K/uL (0.01-0.20); Immature Granulocytes % (auto) 0.2 %; Lymphocytes # (auto) 1.81 K/uL (1.20-3.40); Lymphocytes % (auto) 20.6 %; Mean Corpuscular Hemoglobin 28.7 pg (25.0-34.0); Mean Corpuscular Hgb Conc 32.4 g/dL (32.0-36.0); Mean Corpuscular Volume 88.6 fL (80.0-100.0); Mean Platelet Volume 10.2 fL (9.4-12.4); Monocytes # (auto) 0.58 K/uL (0.11-0.59); Monocytes % (auto) 6.6 %; Neutrophils # (auto) 6.13 K/uL (1.40-6.50); Neutrophils % (auto) 69.7 %; Platelet Count 241 K/uL (130-400); RDW Coefficient of Variation 14.7 % (11.5-14.5); RDW Standard Deviation 47.1 fL (36.4-46.3); Red Blood Count 5.01 M/uL (4.20-5.40)
[2024-05-25 06:01] LABS: BUN Creatinine Ratio 23.1 (10-20); Calcium 9.2 mg/dl (8.6-10.3); Creatinine Clr Calc Pharmacy 157.9 ml/min
--- NOTE | 2024-05-25 07:18 | Hospitalist Progress Note ---
Date of Service May 25, 2024 Assessment & Plan (1) Acute dyspnea: (2) Migraines: (3) Nocturnal hypoxemia: (4) Severe obstructive sleep apnea: (5) SVT (supraventricular tachycardia): (6) Diabetes: Plan Goal to discharge patient today ISH Patient satisfied with mask fitting in hospital. Would feel comfortable using this at home. Needs to be ordered along with new machine. Patient can follow up with Dr. Molina/Yeimi Tsai to get a new order. Encouraged CPAP compliance. Discussed how untreated sleep apnea can contribute to development of pulmonary HTN. Pulmonary HTN Echo reveals pulmonary artery HTN 30-40mmHg Encouraged CPAP compliance. Discussed how untreated sleep apnea can contribute to development of pulmonary HTN. Dr. Molina and Yeimi Chao notified. Ordered updated sleep study and new CPAP device. Follow up with outpatient cardiology for further workup Sleep in recliner with head elevated until able to obtain CPAP Fluid Retention Order 40 mg furosemide. 2-Step exam due to SOB with ambulation. Relief of chest heaviness symptoms with 2 doses of furosemide in hospital. CTA r/o L ventricular disfunction. Shows R ventricular enlargement and pulmonary HTN. Patient prescribed 20 mg furosemide at home, which she states she takes once in a while when she notices significant leg swelling. Increase to 40 mg daily. Migraine Still has a 2/10 headache. Tylenol has been effective in treating while in hospital. 1000mg Tylenol PRN for pain. Continue acetazolamide 50 mg PO daily, rimegepant 75 mg PO daily PRN Follow up [facility]. SVT Normal rate and sinus rhythm overnight and today Increse to 75mg Metoprolol PO BID T2DM Restart metformin 500 mg PO BID Continue semaglutide 1 mg-follow up PCP about missed dose Refer [facility] weight management Admission and Anticipated Discharge Date Admission Date: May 24, 2024 Olu Isaac is a 39 F with a hx untreated sleep apnea, obesity, T2DM presenting with bilateral lower extremity edema and positional chest heaviness, dyspnea when laying flat. She has been in the hospital for 2 days. Marlin used CPAP from 10 pm until 4:30 am last night. She states that this mask is a full face mask, like her one at home, but she feels this one is smaller and fits her face better. She removed it at 4:30am because it was drying out her throat. Overnight, residential monitor reveals she maintained NSR and her heart rate lowered into the 80s. Additionally, her BP decreased to 125/84. She saw respiratory therapy and was fit for CPAP, which she used overnight. This heart rate response was not seen the night before when she did not wear the CPAP. We discussed results of her venous doppler, CTA and echo per patient request. She is interested in going home today. Review of Systems Constitutional: Fatigued. Denies fever, chills. Eyes: Denies changes in vision. Ear, Nose, Mouth, Throat: Denies cough, rhinorrhea, congesition. Respiratory: Endorses some brief episodes of SOB during the day which resolve within seconds. States this is not what she experienced with chest heaviness which prompted her to come to the hospital. This is her baseline. Cardiovascular: Additional Comments: Denies CP, palpitations. Gastrointestinal: Denies nausea, vomiting. Musculoskeletal: Endorses pain and swelling in bilateral lower extremities which is worse with palpation. Neurologic: Denies changes in cognition, coordination, balance. Psychiatric: Denies anxiety, depression. Physical Exam Constitutional: Alert and oriented x4. In no acute distress. Eyes: EOMI. PERRLA. Sclera clear, nonicteric. Conjunctiva without pallor. Neck: Supple without lymphadenopathy or thyromegaly. Respiratory: Lungs clear to auscultation bilaterally. No wheezing, rales or rhonchi. Observed SOB with ambulation from the bathroom which resolved within a few seconds of sitting down. Cardiovascular: Regular rate and rhythm, no murmurs, rubs or gallops. Bilateral lower extremity edema. Skin: Warm, dry. No rashes or lesions. Neurologic: Ambulating in room with normal gate. Coordination and strength intact. No impairment in cognition. Psychiatric: Appropriate mood and affect. Results & Data Results & Data Vital Signs (Past 12 Hours) Vital Signs Temp Pulse Pulse Resp BP Pulse Ox O2 Del Method 05/25/24 07:06 82 05/25/24 03:52 82 16 95 05/25/24 03:21 36.8 C 75 20 125/84 95 Room Air, CPAP 05/25/24 00:08 36.4 C L 79 20 124/81 94 Room Air, CPAP 05/25/24 00:00 100 H 05/24/24 22:42 84 25 H 95 05/24/24 20:07 36.4 C L 93 H 18 149/88 H 92 Room Air 05/24/24 20:00 Room Air FiO2 05/25/24 07:06 05/25/24 03:52 21 05/25/24 03:21 05/25/24 00:08 05/25/24 00:00 05/24/24 22:42 21 05/24/24 20:07 05/24/24 20:00 Laboratory Results Na-134 increase from yesterday. No other electrolyte abnormalities
[2024-05-25 07:42] VITALS: RESP 20
[2024-05-25] MEDS: acetaZOLAMIDE 250 MG TAB PO SCH (08:54)
[2024-05-25] MEDS: FUROSEMIDE 40 MG/4 ML VIAL IV ONE (10:33)
--- NOTE | 2024-05-25 11:34 | Discharge Summary ---
Date of Service May 25, 2024 Admission HPI Per Admitting Provider Marlin is a 39 year-old female who presented to the ED due to worsening shortness of breath. Her medical history is significant for Chiari zero malformation, migraine headaches, severe ISH, SVT, lower extremity edema, type 2 diabetes mellitus. She endorses progressive worsening shortness of breath and leg swelling over 6 months, however significantly worse in the past 3 days. Had outpatient echo and LE venous duplex ordered for end of the month, but due to her worsening symptoms she presented to the ED for evaluation. Endorses some chest pressure and dyspnea when laying flat, previously managed by stacking pil lows however that is no longer helping. States she has severe sleep apnea but has been unable to tolerate CPAP and was previously told her BMI was too high for the inspire device. Has been taking Lasix 20mg as needed for lower extremity swelling at home without much improvement, also has worn compression stockings which helps some. ED Course: -CBC, CMP, BNP -Respiratory biofire -CTA chest Principal Diagnosis Pulmonary HTN/Hypervolemia Discharge Exam Constitutional Alert and oriented x4. In no acute distress. Eyes EOMI. PERRLA. Sclera clear, nonicteric. Conjunctiva without pallor. Neck Supple. Without lymphadenopathy or thyromegaly. Trachea is midline. Respiratory Lungs clear to auscultation bilaterally. No wheezing, rales or rhonchi. Observed SOB with ambulation from the bathroom which resolved within a few seconds of sitting down. Cardiovascular Regular rate and rhythm, no murmurs, rubs or gallops. Bilateral lower extremity edema. Musculoskeletal Ambulating in room with normal gate. Coordination and strength intact. No impairment in cognition. Skin Warm, dry. No rashes or lesions. Psychiatric Appropriate mood and affect. Discharge Data Allergies Allergy/AdvReac Type Severity Reaction Status Date / Time bee venom protein (honey bee) Allergy Severe bee stings Verified 10/24/23 23:18 - localized swelling, trouble breathing with sumatriptan Allergy Severe SHORTNESS Verified 10/24/23 23:18 OF BREATH cat dander Allergy Intermediate sneezing, Verified 10/24/23 23:18 itchy eyes promethazine Allergy Intermediate Rash Verified 10/24/23 23:18 Consultations 05/24/24 04:32 ED Decision to Admit Stat Ordered Studies 05/24/24 03:31 CT angio chest PE protocol Stat 05/24/24 05:53 US venous duplex leg [US venous doppler LE LT] Routine Hospital Course (1) Acute dyspnea: (2) Migraines: (3) Nocturnal hypoxemia: (4) Severe obstructive sleep apnea: (5) SVT (supraventricular tachycardia): (6) Diabetes: Plan Pulmonary HTN Echo reveals pulmonary artery HTN 30-40mmHg Encouraged CPAP compliance. Discussed how untreated sleep apnea can contribute to development of pulmonary HTN. Consider f/u with outpatient cardiology for further workup ISH Patient satisfied with mouth mask fitting in hospital. Would feel comfortable using this at home. Message sent to Dr. Molina and Yeimi Chao who placed new order for CPAP and u pdated sleep study, given previous was 2+ years old Sleep in recliner with head elevated until able to obtain CPAP Fluid Retention Received IV Lasix 3x 40 mg while inpatient with improvement in symptoms 2-Step exam due to SOB with ambulation. CTA r/o L ventricular disfunction. Shows R ventricular enlargement and pulmonary HTN. Patient prescribed 20 mg furosemide at home, which she states she takes once in a while when she notices significant leg swelling. Increase to 40 mg daily. Migraine Still has a 2/10 headache. Tylenol has been effective in treating while in hospital. 1000mg Tylenol PRN for pain. Continue acetazolamide 50 mg PO daily, rimegepant 75 mg PO daily PRN Follow up [facility] [place] [facility]. SVT Normal rate and sinus rhythm overnight and today Elevated heart rate when ambulating as seen on 2 step Increase metoprolol 75mg PO BID T2DM Restart metformin 500 mg PO BID Continue semaglutide 1 mg-follow up PCP about missed dose Refer to antonio gee weight management-Patient agreeable Total Time Total Time Spent Total Time Spent (In Minutes): see attending attestation Discharge Plan Discharge Items Patient Disposition: Home - Self-Care Reason For Visit: DYSPNEA Discharge Diagnosis: Pulmonary hypertension, hypervolemia Condition on Discharge: Good Activity: Per Instructions section Non-emergency contact: Primary Care Provider Call non-emergency contact if: you have any medication questions and your symptoms worsen Follow-up/Referrals: Chela Molina MD [Primary Care Provider] - 05/30/24 9:45 am (At the [facility] office in front of the hospital, [address] Matthews) Diet: Regular Addtl Attending Provider Instructions: You were admitted because of chest pain and dyspnea. We gave you Lasix, a dieretic, with improvement of your symptoms. You should continue to take your daily Lasix, we are going to increase it to 40mg in the morning- you should follow up with Dr. Saunders's office in the next week for further adjustments. Your heart rate also went up with exertion-> we are going to increase your metoprolol to 75mg twice a day, if you feel light headed or dizzy please let your primary care doctor know as we may need to decrease the dsoe again. You should call their office to make an appointment. They can also help with getting a new CPAP ordered for you. It is important to use the CPAP moving forward as this will likely help with your symptoms as well. Your echocardiogram (US of your heart) did show some mild pulmonary HTN, using the CPAP regularly could help with this. Pending Studies at Discharge: No Stand-Alone Forms: My [facility] [employer], Smoking Cessation Medications and DC Order Prescriptions: New acetazolamide 250 mg Tablet 250 mg PO BID 30 Days Qty: 60 0RF furosemide [Lasix] 40 mg tablet 40 mg PO QAM Qty: 30 0RF metoprolol tartrate 75 mg tablet 75 mg PO BID 30 Days Qty: 60 0RF Continued Nurtec ODT 75 mg tablet,disintegrating 75 mg PO DAILY PRN (Reason: migraine headache) Qty: 8 5RF Rx Instructions: 75mg po once a day prn acute migraine epinephrine 0.3 mg/0.3 mL auto-injector 0.3 mg IM Q10M PRN (Reason: allergies) cyclobenzaprine 10 mg tablet 10 mg PO TID PRN (Reason: MUSCLE SPASMS) Rx Instructions: PER PT "USUALLY TAKE 10 MG AT HS EVERY NIGHT". metformin 500 mg tablet 500 mg PO BID acetaminophen [Tylenol Extra Strength] 500 mg Tablet 1,000 mg PO DIRECTED PRN (Reason: Pain) ibuprofen 200 mg Tablet 600 - 800 mg PO DIRECTED PRN (Reason: Pain) Ozempic 1 mg/dose (4 mg/3 mL) pen injector 1 mg SUBCUT WK Discontinued metoprolol tartrate 50 mg tablet 50 mg PO BID furosemide 20 mg tablet 20 mg PO QAM acetazolamide 250 mg tablet 50 mg PO 1XD Discharge Orders: Discharge Order (Routine); Ordered 05/25/24 Ordered By: Brit Genao Admission Data Admit Date/Time: 05/24/24 05:28 Attending Provider: Candida Houston Admit Provider: Chandni Toledo Primary Care Provider: Chela Molina Other Providers: Jaja Kang Other Interventions: Discharge Summary Assessment (RN) Last Done: 05/25/24 11:55 Supervising Physician Co-Signing Physician Notes Attending Physician Supervision Note: I independently interviewed and examined the patient and verified the velazquez history and physical, reviewed labs and image studies and agree with findings and care plan noted above. Breathing much improved on day of discharge. 2 step with no hypoxia - was noted to be tachycardic with ambulation - HR into 110s. vitals noted. comfortable in bed. RRR, no JVD, CTA, leg edema with improvement. Acute HFpEF/RV dilation/RV pressure elevated - Echo - Normal EF, RV dilation, RV pressure 30-40. BNP WNL - can be falsely low in obesity -diuresed well. Increased home dose lasix to 40mgs daily. renal function stable. Pul HTN and RV dilation - likely from untreated severe ISH and fluid overload. Will need outpatient follow up. Severe ISH - will need to rearrange cpap on discharge. Message sent to PCP - tolerated mouth piece mask well instead of full face mask. -Consider sleep clinic referral - might be a candidate for bipap instead of cpap. SVT - In sinus rhythm. Tachycardic with ambulation - Metoprolol dose increased to 75mgs bid (from 50mgs bid). consider event monitor for extended period monitoring as outpatient. Morbid obesity/Weight management - On GLP1 agonits for DM. No improvement in weight. To further evaluate as outpatient need for referral to wt management clinic/surgical options.
[2024-05-25 11:42] VITALS: PULSE 86; TEMP 97.5; O2SAT 94
[2024-05-25 11:56] VITALS: BP 156/82
--- OUTSIDE RECORDS SUMMARY | 2024-05-25 23:41 | External Medical Summary | Continuity of Care Document ---
Author Name Unknown Organization [place] [address] [facility] Address [address] [place] [phone] Care Team Providers Care Director Of Student Aid Name Role Phone Chela Molina Remy Primary Care Physician [phone] [id number] Date([facility]): 12/18/[facility] - 12/18/23 [facility] [address], [address] [place] [address] [phone] Encounter Diagnosis Type 2 diabetes mellitus without complication(Discharge Diagnosis) - 12/18/23 Peripheral edema(Discharge Diagnosis) - 12/18/23 Obstructive sleep apnea(Discharge Diagnosis) - 12/18/23 Type 2 diabetes mellitus without complications(Final) - Discharge Disposition: Home or Self Care Attending Physician: NISHANT Chao, Anabelle Austin Allergies, Adverse Reactions, Alerts Substance Reaction Severity Status shrimp eye swelling Active Imitrex chest pain sob Active Phenergan hives Active Bee sting 1 Active Cats Active 1swelling Medications acetaZOLAMIDE 250 mg oral tablet Start: 03/11/22 12:06:00 EDT, See Instructions, Disp# 180 tab, Refills: 3, BID, [facility]acy: [facility] #[id number] Start Date: 03/11/22 Status: Ordered Ofelia D OTC 24HR Start: 04/16/17 9:05:00, 1 tab, PO, Daily Start Date: 04/16/17 Status: Ordered ALPRAZolam 0.5 mg oral tablet Start: 10/13/22 13:26:00 EST, 1 tab, PO, Daily, Disp# 30 tab, Refills: 1, PRN: as needed for anxiety, Pharmacy: [facility] #[id number] Start Date: 10/13/22 Status: Ordered cyclobenzaprine 10 mg oral tablet Start: 12/18/23 10:58:00 EDT, See Instructions, Disp# 90 tab, Refills: 1, take 1 tablet by mouth three times a day, [facility]: [id number] Start Date: 12/18/23 Status: Ordered Dexcom G7 Catalogue Compiler Start: 12/18/23 10:48:00 EDT, See Instructions, Disp# 1 kit, continous glucose monitoring, [facility]: [facility][id number] Start Date: 12/18/23 Status: Ordered Dexcom G7 Sensor Start: 12/18/23 10:49:00 EDT, See Instructions, Disp# 3 kit, Refills: 11, change sensor every 10 days, [facility]: [facility][id number] Start Date: 12/18/23 Status: Ordered EpiPen 2-Nayan 0.3 mg injectable kit Start: 05/14/15 12:32:00, 0.3 mg =, IM, ONCE, Disp# 2 unit, PRN: as needed for anaphylaxis, [facility]acy: [facility] - [id number], 0.3 mg IM ONCE,PRN:as needed for anaphylaxis Start Date: 05/14/15 Status: Ordered Lasix 20 mg oral tablet Start: 06/24/23 16:39:00 EST, 1 tab, PO, Daily, Disp# 30 tab, Refills: 5, [facility]acy: [facility] #[id number] Start Date: 06/24/23 Stop Date: 12/21/23 Status: Ordered metFORMIN 500 mg oral tablet Start: 03/30/23 7:49:00 EDT, 1 tab, PO, bid, Disp# 180 tab, Refills: 3, Pharmacy: [facility] #[id number] Start Date: 03/30/23 Stop Date: 03/24/24 Status: Ordered Metoprolol Tartrate 50 mg oral tablet Start: 12/03/23 11:20:00 EDT, 1 tab, PO, bid, Disp# 180 tab, Refills: 3, Pharmacy: [facility] #[id number] Start Date: 12/03/23 Status: Ordered Mirena 52 mg intrauteral device Start: 05/23/19 11:20:00 EDT, 1 each, intrauterine, ONCE Start Date: 05/23/19 Status: Ordered nortriptyline Start: 06/16/23 11:29:00 EST, 25 mg =, PO, Daily Start Date: 06/16/23 Status: Ordered Ozempic (0.25 mg or 0.5 mg dose) 2 mg/3 mL subQ pen Start: 12/18/23 10:50:00 EDT, See Instructions, subQ, q7days, Disp# 3 mL, Refills: 5, Inject 0.25 mg every 7 days X 4 weeks then increase to 0.5 mg SQ every 7 days., Pharmacy: [facility] #[id number], Supply Start Date: 12/18/23 Status: Ordered Mental Status 12/18/23 Barriers to Learning one year None evide nt Mandatory Health Literacy Documentation Yes Health Literacy Communication Barriers N ever Primary Language Jamaican Problem List Condition Confirmation Course Effective Dates Status H ealth Status Informant Cataplexy and narcolepsy Confirmed Active Central obesity Confirmed Active Chronic mixed headache syndrome Confirmed Active Deviated nasal tip Confirmed Active Inappropriate sinus tachycardia Confirmed Active 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: 1.Septal deviation left with 90% obstruction. [...] significant paranasal sinus disease identified by radiography [id number] Results Laboratory List Name Date Comprehensive Metabolic Panel (COMP META B PANEL) 12/18/23 Hemoglobin A1C (HEMOGLOBIN, A1C) 12/18/23 Microalbumin, Urine, Random (MICROALBUMI N, RD UR) 12/18/23 Thyroid Stimulating Hormone (TSH) 4 Most recent to oldest [Reference Range]: 1 eGFR CKD-EPI [>60 mL/min/1.73 m2] >90 mL /min/1.73 m2 1 (12/18/23 11:03 AM) Estimated Average Glucose 189 mg/dL (12/18/23: AM) Estimated CrCl 136.47 mL/min (12/18/23 11:41 AM) Micro Alb (u) [<2.00 mg/dL] <1.20 mg/dL (12/18/23: AM) Anion Gap [5-14 mmol/L] 10 mmol/L (12/18/23: AM) Alb [3.5-5.0 g/dL] 4.3 g/dL (12/18/23 11:03 AM) Alk Phos [38-126 unit/L] 73 unit/L (12/18/23: AM) ALT [<35 unit/L] 53 unit/L *HI* (12/18/23: AM) AST [15-46 unit/L] 39 unit/L (12/18/23: AM) BUN [7-20 mg/dL] 11 mg/dL (12/18/23: AM) Ca [8.4-10.2 mg/dL] 9.0 mg/dL (12/18/23 11:03 AM) Cl- [96-107 mmol/L] 105 mmol/L (12/18/23 AM) HCO3 [22-30 mmol/L] 24 mmol/L (12/18/23:03 AM) Cret [0.60-1.00 mg/dL] 0.77 mg/dL (12/18/23:03 AM) HbA1c [<5.7 %] 8.2 % 2 *HI* (12/18/23 11:03 AM) Glu [74-106 mg/dL] 197 mg/dL *HI* (12/18/23 11:03 AM) K [3.5-5.1 mmol/L] 4.1 mmol/L (12/18/23 11:03 AM) Micro Alb Ratio [<20 ug/mg cret] NOT JES CULATED ug/mg cret (12/18/23 11:03 AM) Na [137-145 mmol/L] 139 mmol/L (12/18/23 11:03 AM) T Bili [0.2-1.3 mg/dL] 0.6 mg/dL (12/18/23 11:03 AM) Prot [6.3-8.2 g/dL] 7.9 g/dL (12/18/23 11:03 AM) TSH [0.47-4.68 uIU/mL] 1.43 uIU/mL 3 (12/18/23 11:03 AM) Creat (u) 78.05 mg/dL 4 (12/18/23 11:03 AM) 1Result Comment: Testing Performed By: Dept of Pathology [facility], [address] [place] [address], [place] [address] 2Result Comment: ADA Recommended [place] Reference Range: Normal: <5.7% Prediabetes: 5.7-6.4% Diabetes: >6.4% 3Result Comment: Testing Performed By: Dept of Pathology [facility], [address] [place] [address], [place] [address] 4Result Comment: Reference Range for Random Urine Not Established. Vital Signs Most recent to oldest [Reference Range]: 1 Patient Weight 140.7 kg (12/18/23 10:32 AM) Heart Rate 88 bpm (12/18/23 10:32 AM) Blood Pressure 122/74mmHg (12/18/23 10:32 AM) Cuff Pulse Pressure 48 mmHg (12/18/23 10:32 AM) Social History Social History Type Response Smoking Status Never smoked cigaret heather Sex Female Patient Care team information Care Team Personnel Name: MD Jesse, Chela Alberto Position: Physician - Family Med Member Role: Primary Care Provider Address: Address: [address] [place] [address] [address] [place] [address] [place] Care Team Related Persons Name: RAJAT GODWIN Address: [address] [place], [phone]
== END 2024-05-25 12:34 | disposition home or self-care (01) ==
LOC: SUATTDRO → ED 03:07 → 2N 03:07 → SUATTDRO 05:28 → 2N 06:20